=== PATIENT | male | born 1950 | race Two or more races ===

== ENCOUNTER 2018-11-09 15:10 | Inpatient (IN) | payer MEDICARE, BC ==
[~2018-11-09] VITALS: Ht 177.8 cm; Wt 77.1 kg
[2018-11-09] MEDS ORDERED: cefTRIAXone 1 GM in NS 55 ML IV STA (15:14)
[2018-11-09] MEDS ORDERED: Ipratropium 0.02% Inh Soln 2.5ml UD HHN ONE (15:15)
[2018-11-09] MEDS ORDERED: Albuterol ud Inhalation HHN ONE (15:15)
--- NOTE | 2018-11-09 15:19 | Emergency Room Report ---
History of Present Illness General Chief Complaint: Dyspnea/Respdistress Source: Patient, Family Member, EMS Present Illness HPI Patient presents with one week of cough and dyspnea. He's also had fevers and chills. He's had productive phlegm. He has muscle aches. He says he's been taking Tylenol twice a day. He does not use breathing treatments. Denies any chest pain. In the past he has used albuterol inhalers but denies wheezing. He has taken 1 dose of azithromycin. He was sent from his doctor's office. EMS stated he was hypoxic in the field. This improved with oxygen administration. H/O multiple myeloma in remission. State that last saw oncologist 2 months ago. He denies underlying anemia. Status post bone marrow replacement. He is followed at [facility]. History of diabetes. History of gout. No joint pain. No palpitations, nausea, vomiting, diarrhea, dysuria, abdominal pain, depression , visual changes, headache. Allergies: Coded Allergies: No Known Allergies (Unverified , 11/09/18) Patient History Past Medical History: see triage record Social History: Reports: alcohol use - Prior; Denies: smoking, drug use Social History Narrative Reviewed Nursing Documentation: PMH: Agreed; PSxH: Agreed Nursing Documentation-PMH Past Medical History: No History, Except For Hx COPD: No - DYSPNEA Hx Diabetes: Yes - DM2 Review of Systems All Other Systems: negative except mentioned in HPI Physical Exam Vital Signs Date Time Temp Pulse Resp B/P (MAP) Pulse Ox O2 Delivery O2 Flow Rate FiO2 11/09/18 15:06 101.5 100 18 126/66 100 Non-Rebreather 10.0 Sp02 EP Interpretation: reviewed, normal General Appearance: alert, GCS 15, mild distress Head: normocephalic, atraumatic Eyes: bilateral eye normal inspection, bilateral eye PERRL, bilateral eye EOMI ENT: moist mucus membranes Neck: supple Respiratory: respiratory distress - Mild, rales - Right upper, wheezing, expiration Cardiovascular #1: tachycardia Cardiovascular #2: 2+ radial (R) Gastrointestinal: normal inspection, normal bowel sounds, non tender, no mass, non-distended Musculoskeletal: back normal, normal range of motion, no calf tenderness Neurologic: alert, oriented x3, grossly normal Psychiatric: mood/affect normal Skin: normal inspection, warm/dry, other - Sallow Medical Decision Making Diagnostic Impression: Primary Impression: Pneumonia Qualified Codes: J18.1 - Lobar pneumonia, unspecified organism Additional Impressions: Hypoxia Pancytopenia Renal failure Qualified Codes: N17.9 - Acute kidney failure, unspecified History of multiple myeloma ER Course Patient presents with respiratory distress, hypoxia and fever with productive cough. Differential includes pneumonia, bronchitis, bronchospasm amongst others. There is no physical evidence of pulmonary embolus and with the fever infectious etiology is suspected. Evaluation with EKG, chest x-ray and labs including blood cultures and lactate. Patient be treated with albuterol and Atrovent. In addition he will receive fluid resuscitation and Tylenol. Most likely antibiotics will be indicated. The patient is placed on a phototypesetting equipment monitor. EKG without injury. Chest x-ray with right upper lobe infiltrate. CBC with low white count, thrombocytopenia and anemia. There is renal failure. BNP is elevated. Broad-spectrum antibiotics are begun. Because of the low white count reverse isolation is requested. In addition it is suspected that the pulmonary infiltrate may not represent the true extent of disease. It is also a consideration that he has recurrence of the multiple myeloma. Alternatively he can have failure of the bone marrow transplant. Blood is sent for type and Rh in anticipation of possible need for platelet or blood transfusion. Findings were discussed with family. The family do not want the patient told of the findings however I discussed the blood findings. Patient is remarkably improved after treatment. However due to the bone marrow failure and evidence of pneumonia the patient is admitted to telemetry. Patient admitted to Dr. Marinelli. Laboratory Tests Test 11/09/18 15:30 11/09/18 15:58 White Blood Count 2.2 K/UL (4.8-10.8) L Red Blood Count 2.62 M/UL (4.70-6.10) L Hemoglobin 8.7 G/DL (14.2-18.0) L Hematocrit 26.1 % (42.0-52.0) L Mean Corpuscular Volume 100 FL (80-99) H Mean Corpuscular Hemoglobin 33.3 PG (27.0-31.0) H Mean Corpuscular Hemoglobin Concent 33.4 G/DL (32.0-36.0) Red Cell Distribution Width 17.2 % (11.6-14.8) H Platelet Count 50 K/UL (150-450) L Mean Platelet Volume 8.9 FL (6.5-10.1) Neutrophils (%) (Auto) % (45.0-75.0) Lymphocytes (%) (Auto) % (20.0-45.0) Monocytes (%) (Auto) % (1.0-10.0) Eosinophils (%) (Auto) % (0.0-3.0) Basophils (%) (Auto) % (0.0-2.0) Differential Total Cells Counted 100 Neutrophils % (Manual) 48 % (45-75) Lymphocytes % (Manual) 35 % (20-45) Monocytes % (Manual) 7 % (1-10) Eosinophils % (Manual) 0 % (0-3) Basophils % (Manual) 0 % (0-2) Band Neutrophils 10 % (0-8) H Platelet Estimate Decreased L Platelet Morphology Normal Hypochromasia 1+ Anisocytosis 1+ Prothrombin Time 10.6 SEC (9.30-11.50) Prothrombin Time INR 1.0 (0.9-1.1) PTT 30 SEC (23-33) Sodium Level 137 MMOL/L (136-145) Potassium Level 4.6 MMOL/L (3.5-5.1) Chloride Level 100 MMOL/L (98-107) Carbon Dioxide Level 32 MMOL/L (21-32) Anion Gap 5 mmol/L (5-15) Blood Urea Nitrogen 45 mg/dL (7-18) H Creatinine 2.2 MG/DL (0.55-1.30) H Estimate Glomerular Filtration Rate 30.0 mL/min (>60) Glucose Level 173 MG/DL (74-106) H Lactic Acid Level 0.90 mmol/L (0.4-2.0) Calcium Level 8.6 MG/DL (8.5-10.1) Total Bilirubin 0.5 MG/DL (0.2-1.0) Aspartate Amino Transferase (AST) 29 U/L (15-37) Alanine Aminotransferase (ALT) 48 U/L (12-78) Alkaline Phosphatase 73 U/L (46-116) Total Creatine Kinase 501 U/L (26-308) H Troponin I 0.045 ng/mL (0.000-0.056) Pro-B-Type Natriuretic Peptide 1422 pg/mL (0-125) H Total Protein 7.2 G/DL (6.4-8.2) Albumin 2.9 G/DL (3.4-5.0) L Globulin 4.3 g/dL Albumin/Globulin Ratio 0.7 (1.0-2.7) L Urine Color Yellow Urine Appearance Clear Urine pH 5 (4.5-8.0) Urine Specific [place] 1.015 (1.005-1.035) Urine Protein 3+ (NEGATIVE) H Urine Glucose (UA) Negative (NEGATIVE) Urine Ketones Negative (NEGATIVE) Urine Blood 1+ (NEGATIVE) H Urine Nitrite Negative (NEGATIVE) Urine Bilirubin Negative (NEGATIVE) Urine Urobilinogen 1 MG/DL (0.0-1.0) H Urine Leukocyte Esterase Negative (NEGATIVE) Urine RBC 0-2 /HPF (0 - 0) H Urine WBC 0-2 /HPF (0 - 0) Urine Squamous Epithelial Cells None /LPF (NONE/OCC) Urine Bacteria Few /HPF (NONE) Microbiology Date/Time Source Procedure Growth Status 11/09/18 16:18 Nasal Nares Influenza Types A,B Antigen (REENA) - Final Complete EKG Diagnostic Results Rate: normal Rhythm: NSR ST Segments: no acute changes Rhythm Strip Diag. Results EP Interpretation: yes Rhythm: NSR, no PVC's, no ectopy Chest X-Ray Diagnostic Results Chest X-Ray Diagnostic Results : Chest X-Ray Ordered: Yes # of Views/Limited/Complete: 1 View Indication: Shortness of Breath EP Interpretation: Yes Interpretation: no effusion, no pneumothorax, other - Right upper lobe infiltrate Impression: Other Electronically Signed by: Electronically signed by Miguel Fisher MD Last Vital Signs Date Time Temp Pulse Resp B/P (MAP) Pulse Ox O2 Delivery O2 Flow Rate FiO2 11/10/18 01:13 99.5 11/10/18 00:00 77 11/10/18 00:00 19 107/63 (78) 97 11/09/18 22:45 Nasal Cannula 2.0 11/09/18 15:36 98 Status: improved Disposition: ADMITTED INPATIENT Condition: Serious Miguel Fisher MD Nov 09, 2018 15:19
[2018-11-09] MEDS ORDERED: NORCO 10-325 T1 EACH ORAL (15:21)
[2018-11-09] MEDS ORDERED: LANTUS SOL100 UNIT/1 SUBQ (15:21)
[2018-11-09] MEDS ORDERED: DEXILANT60 MG ORAL (15:21)
[2018-11-09] MEDS ORDERED: ULORIC40 MG ORAL (15:21)
[2018-11-09] MEDS ORDERED: ATROVENT HFA12.9 GM IH (15:21)
[2018-11-09] MEDS ORDERED: FUROSEMIDE40 MG ORAL (15:21)
[2018-11-09] MEDS ORDERED: HYDROCHLOROTH12.5 M2 ORAL (15:21)
[2018-11-09] MEDS ORDERED: ALBUTEROL2.5 MG/3 M INH (15:21)
[2018-11-09] MEDS ORDERED: NORMODYNE200 MG ORAL (15:21)
[2018-11-09] MEDS ORDERED: REPATHA SU140 MG/1 M SQ ×2 (15:21)
[2018-11-09] MEDS ORDERED: LEVOTHYROXINE75 MCG ORAL (15:21)
[2018-11-09] MEDS ORDERED: TAMSULOSIN HCL0.4 MG ORAL (15:21)
[2018-11-09] MEDS ORDERED: ADALAT20 MG ORAL (15:21)
[2018-11-09] MEDS ORDERED: COLCRYS0.6 M1 PO (15:21)
[2018-11-09] MEDS ORDERED: VASCEPA1 GM PO ×2 (15:21)
[2018-11-09] MEDS ORDERED: LIVALO4 MG PO (15:21)
[2018-11-09] MEDS ORDERED: CREON DR 12,001 EACH PO (15:21)
[2018-11-09] MEDS ORDERED: TRULICITY0.75 MG/0. SQ (15:21)
[2018-11-09] MEDS ORDERED: ALLOPURINOL300 M1 ORAL (15:21)
--- NOTE | 2018-11-09 15:30 | NUR ---
ED Nurse Note: Pt IDALMIS from MD appointment due to complaints of fever and coughing x 1 week. Pt was given zpack last week but it has not gotten better. Pt was sating at 84% on RA. Placed on NC. Pt denies pain. A + O x4. Skin clammy to touch. Ambulatory. [place] speaking.
--- NOTE | 2018-11-09 15:34 | NUR ---
ED Nurse Note: RT at the bedside.
--- NOTE | 2018-11-09 15:35 | NUR ---
ED Nurse Note: Blood sent to lab.
[2018-11-09 15:36] VITALS: BP 133/60
[2018-11-09 16:11] LABS: APPEARANCE,URINE CLEAR; BILIRUBIN, URINE NEGATIVE (NEGATIVE); GLUCOSE, URINE (UA) NEGATIVE (NEGATIVE); KETONES,URINE NEGATIVE (NEGATIVE); LEUKOCYTE ESTERASE ,URINE NEGATIVE (NEGATIVE); NITRITE,URINE NEGATIVE (NEGATIVE); PH,URINE 5 (4.5-8.0); PROTEIN,URINE 3+ (NEGATIVE); UROBILINOGEN,URINE 1 MG/DL (0.0-1.0)
[2018-11-09 16:13] LABS: COLOR,URINE YELLOW
[2018-11-09 16:16] LABS: ANION GAP 5 mmol/L (5-15); BLOOD UREA NITROGEN 45 mg/dL (7-18); CALCIUM 8.6 MG/DL (8.5-10.1); CARBON DIOXIDE 32 MMOL/L (21-32); CHLORIDE 100 MMOL/L (98-107); CREATININE 2.2 MG/DL (0.55-1.30); POTASSIUM 4.6 MMOL/L (3.5-5.1); SODIUM 137 MMOL/L (136-145)
[2018-11-09 16:20] LABS: HEMATOCRIT 26.1 % (42.0-52.0); HEMOGLOBIN 8.7 G/DL (14.2-18.0); MEAN CORPUSCULAR VOLUME 100 FL (80-99); PLATELET COUNT 50 K/UL (150-450); RED BLOOD COUNT 2.62 M/UL (4.70-6.10); RED CELL DISTRIBUTION WIDTH 17.2 % (11.6-14.8); WHITE BLOOD COUNT 2.2 K/UL (4.8-10.8)
[2018-11-09 16:24] LABS: ALANINE AMINOTRANSFERASE 48 U/L (12-78); ALBUMIN 2.9 G/DL (3.4-5.0); ALBUMIN/GLOBULIN RATIO 0.7 (1.0-2.7); ALKALINE PHOSPHATASE 73 U/L (46-116); ASPARTATE AMINO TRANSFERASE 29 U/L (15-37); BILIRUBIN,TOTAL 0.5 MG/DL (0.2-1.0); CREATINE KINASE 501 U/L (26-308)
--- NOTE | 2018-11-09 16:25 | NUR ---
ED Nurse Note: Notified Xray of order.
--- NOTE | 2018-11-09 16:30 | NUR ---
ED Nurse Note: Xray at the bedside.
[2018-11-09] MEDS ORDERED: Vancomycin 1 GM in NS 275 ML IVPB ONE (16:45)
--- NOTE | 2018-11-09 16:56 | Diagnostic Imaging Report ---
Indication: Shortness of breath Technique: One view of the chest Comparison: none Findings: Body habitus limits evaluation. There is suggestion of increased opacity in the right mid and upper lung periphery. The left lung is probably clear. The pleural spaces are clear Impression: Apparent right mid and upper lung opacity, could be an artifact of overlapping soft tissues but appearance concerning for infiltrate. Correlate with clinical finding Cardiomegaly
[2018-11-09] MEDS ORDERED: Mylanta II UD 30ml ORAL ONE (17:15)
--- NOTE | 2018-11-09 17:47 | NUR ---
REPORT GIVEN TO RN PATIENT IS TO BE TRANSFERD TO ROOM 204-1. VIA [facility]
--- NOTE | 2018-11-09 18:10 | NUR ---
NURSE NOTES: I received the patient from the ER. Patient's belongings reviewed and the all belongings present. Patient oriented to the room and the use of the call light. Patient's IV intact and patent. Bed in the lowest position and call light within reach. Patient's at the bedside.
[2018-11-09 18:18] VITALS: BP 139/76
[2018-11-09] MEDS ORDERED: REVLIMID5 MG PO (18:24)
[2018-11-09] MEDS ORDERED: Albuterol/Ipratropium 3ml neb HHN PRN (19:15)
--- NOTE | 2018-11-09 19:31 | NUR ---
HAND-OFF: Report given to STEPHANIE Walters.
--- NOTE | 2018-11-09 19:45 | NUR ---
NURSE NOTES: Received report from STEPHANIE Dunbar. Patient awake, alert and verbally responsive. No SOB, no acute distress on 2 L via NC. at bedside. Per STEPHANIE Dunbar, pt just came to the unit from ED, admission orders already put by Dr. Tong. IV site on R AC #22, patent and intact. Bed at lowest position, call light within reach. Will continue plan of care.
[2018-11-09 20:00] VITALS: BP 98/48
[2018-11-09] MEDS: Azithromycin 500 MG in D5W 275 ML IV SCH (20:57)
[2018-11-09] MEDS: Tamsulosin 0.4mg cap ORAL SCH (21:01)
[2018-11-09] MEDS: NovoLOG Insulin Flexpen SUBQ SCH (21:04)
[2018-11-09] MEDS: Levemir Flexpen SUBQ SCH (21:04)
[2018-11-09] MEDS: Labetalol 200mg tab ORAL SCH (22:00)
--- NOTE | 2018-11-09 22:15 | Consultation ---
DATE OF CONSULTATION: 11/09/2018 CONSULTING PHYSICIAN: Winston Tong M.D. REFERRING PHYSICIAN: Xu Marinelli M.D. REASON FOR CONSULTATION: 1. Acute kidney injury. 2. Chronic kidney disease. HISTORY OF PRESENT ILLNESS: The patient is a pleasant 67-year-old gentleman who was admitted overnight for further evaluation and care of cough and dyspnea over one week. Both he and his said over the past several days he has been having fevers and chills. He has been taking Tylenol twice a day. He has not been using his breathing treatments. The patient has known multiple myeloma in the past, had been on chemotherapy and had a bone marrow transplant two years ago. He remains on Revlimid in the interim. Emergency room x-ray was significant for pneumonia. PAST MEDICAL HISTORY: 1. Multiple myeloma. 2. Hypertension. 3. Diabetes mellitus. 4. Obesity. 5. Hyperlipidemia. 6. Hypothyroidism. 7. Hypertriglyceridemia. PAST SURGICAL HISTORY: Status post bone marrow transplantation two years ago ALLERGIES: No known drug allergies. FAMILY HISTORY: Positive for diabetes, hypertension, and hyperlipidemia. REVIEW OF SYSTEMS: NEUROLOGIC: The patient denies headache, change in vision, syncope, or presyncopal episodes. CARDIOVASCULAR: No current chest pain, palpitations, or angina. PULMONARY: The patient was short of breath with productive cough, and mild shortness of breath. GASTROINTESTINAL/GENITOURINARY: No change in urinary or bowels habits. No nausea, vomiting, or diarrhea. ENDOCRINOLOGY: No night sweats, fevers, or chills. LABORATORY DATA: Labs dated 11/09/2018, white cell count 2.2, hemoglobin 8.7, and platelet count of 50. Sodium 137, potassium 4.6, BUN 45, and creatinine 2.2. Calcium 8.6. Albumin 2.9. PHYSICAL EXAMINATION: VITAL SIGNS: Blood pressure 139/76, 96% oxygen saturation on room air, pulse 86, and temperature 98.6. GENERAL: The patient is awake and alert, not in distress. HEENT: Extraocular muscles are intact. No lymphadenopathy. Oropharyngeal mucosa is clear and dry. CARDIOVASCULAR: S1 and S2. No rubs or gallops. PULMONARY: Mild upper rhonchi with basilar rales. ABDOMEN: Soft, nontender. Obese in nature. EXTREMITIES: No edema noted. ASSESSMENT AND PLAN: 1. Acute kidney injury versus chronic kidney disease. 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 However, he does not know his baseline creatinine. At this time, Lasix will be discontinued. The patient will be gently hydrated and creatinine will be checked in the morning. As long as renal function improving, conservative management and no further renal investigations. 2. History of multiply myeloma, status post bone marrow transplantation two years ago, has been on Revlimid in the interim. 3. Community-acquired pneumonia. The patient will be placed on Rocephin and azithromycin. 4. Hypertension. Continue home regimen and adjustment medications as deemed appropriate. 5. Diabetes mellitus. The patient is on low carbohydrate diet with insulin sliding scale and Accu-Chek. 6. DVT prophylaxis with SCDs. Winston Tong MD DR: ELSA JOB#: [id number] CC:
--- NOTE | 2018-11-09 23:00 | History and Physical Report ---
DATE OF ADMISSION: 11/09/2018 HISTORY OF PRESENT ILLNESS: This is a 67-year-old male with a history of multiple myeloma who came to the hospital with fever, chills, and muscle aches. He was admitted to the hospital with diagnosis of dyspnea. The patient has a longstanding history of chronic cervicalgia, headaches, alcohol abuse, diabetes mellitus, glaucoma, gout, multiple myeloma, hypertension, status post chemotherapy. CURRENT MEDICATIONS: Include Micardis HCT 80/12.5, Imitrex p.r.n., Janumet daily, Suboxone, cyclobenzaprine, labetalol 200 b.i.d., Neurontin 100 mg 3 tablets b.i.d., colchicine 0.6 mg p.o. b.i.d., multivitamin 1 daily, Epogen, also takes Flomax 0.4 mg daily, Eliquis 5 mg b.i.d. as well as eye drops consisting of brinzolamide. The patient also takes Revlimid 5 mg daily. He also takes insulin Lantus 45 units in the morning and 25 units in the evening. He also takes Livalo 4 mg daily as well as Dexilant 1 capsule daily, Trulicity unclear dose 1.5 mg once a week, Vascepa 2 capsules daily, he takes iron supplement, and acyclovir as well as brimonidine eyedrops. ALLERGIES: None. PAST SURGICAL HISTORY: None reported. PHYSICAL EXAMINATION: GENERAL: Reveals a 67-year-old male. HEENT: Unremarkable. LUNGS: Clear breath sounds bilaterally. HEART: Normal heart sounds. ABDOMEN: Soft. EXTREMITIES: There is no edema. NEUROLOGIC: Nonfocal. VITAL SIGNS: Blood pressure is 120/60, heart rate is 100, respirations 18, O2 saturation 98% on non-rebreather mask, temperature 101.5. IMAGING STUDIES: Show x-ray chest with dense right and midlung opacity. IMPRESSION: 1. Pneumonia. 2. Multiple myeloma. 3. Chronic pain. 4. Hyperlipidemia. 5. Diabetes mellitus. 6. Hypertension. 7. History of alcohol abuse. 8. Gout. DISCUSSION: Admit to the hospital. We will start broad-spectrum antibiotics. Continue home medications to the best of my understanding. The patient will need ID consultation. Given his immunocompromised status, we will consult Nephrology, Cardiology as well as ID. Consider pain management evaluation. 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 Xu Marinelli M.D. DR: DONALD JOB#: [id number] CC:
[2018-11-10] VITALS (7 sets, daily range): BP systolic 97–137; BP diastolic 50–99
--- NOTE | 2018-11-10 02:26 | NUR ---
NURSE NOTES: Patient asleep now, breathing even and unlabored, no s/sx of pain nor any discomfort at this time. Pt noted with fever, tylenol 650 mg administered as ordered, cooling measures initiated. Rechecked temp. Will continue to monitor.
--- NOTE | 2018-11-10 05:45 | Consultation ---
DATE OF CONSULTATION: 11/09/2018 CARDIOLOGY CONSULTATION CONSULTING PHYSICIAN: Miguel Garcia M.D. REQUESTING PHYSICIAN: Xu Marinelli M.D. REASON FOR CONSULTATION: Shortness of breath in the setting of elevated natriuretic peptide assay. HISTORY OF PRESENT ILLNESS: This 67-year-old male was admitted to the hospital with complaints of cough and congestion, shortness of breath of one week duration. He could describes having fevers, chills, and "cold." He has been taking Tylenol. He has not been using his breathing treatments and has worsened in his symptoms prompting him to come to the hospital. He denies chest pain or leg swelling. He was seen in the emergency room where an x-ray of the chest was notable for infiltrate and natriuretic peptide was elevated above 1200. PAST MEDICAL HISTORY: Multiple myeloma, type 2 diabetes mellitus, hypertension, hyperlipidemia, hypothyroidism, hypertriglyceridemia, and history of bone marrow transplant. ALLERGIES: None. FAMILY HISTORY: Notable for diabetes and hypertension. SOCIAL HISTORY: Negative for smoking, alcohol, or substance abuse. MEDICATIONS: Prior to admission, reviewed and reconciled. REVIEW OF SYSTEMS: A 10-point review of systems performed and all positive symptoms noted above. The patient is on apixaban. It is unclear the indication and he is unaware. PHYSICAL EXAMINATION: VITAL SIGNS: Temperature 101.5, blood pressure 126/66, heart rate 100, and respiratory rate 18. GENERAL: An ill-appearing, some accessory muscle use. LUNGS: Coarse breath sounds with rhonchi and expiratory wheezes. CARDIAC: Regular rhythm. Rapid rate. Normal S1, S2 with a fourth heart sound. ABDOMEN: Soft. EXTREMITIES: No edema. DIAGNOSTIC AND LABORATORY DATA: Chest x-ray with right upper lobe infiltrate. Pro-natriuretic peptide 1200. Troponin negative. White count 3.2 and hemoglobin 8.7. IMPRESSION: 1. Pneumonia in the setting of immunocompromised state. 2. Elevated natriuretic peptide assay 3. Chronic diastolic congestive heart failure due to high output state. 4. Pancytopenia due to multiple myeloma. 5. Chronic kidney disease. 6. Acute renal failure. 7. Hypoxia PLAN: 1. Antimicrobials. 2. Respiratory hygiene. 3. Bronchodilators. 4. Monitor blood counts. 5. DVT prophylaxis. 6. Off all diuretics at this time. 7. Hold antiHTN meds for low range BP. Miguel Garcia M.D. DR: MILDRED JOB#: [id number] CC: PAT
[2018-11-10] MEDS: Levothyroxine 25mcg tab ORAL SCH (05:57)
[2018-11-10] MEDS: Labetalol 200mg tab ORAL SCH ×3 (06:00→22:05)
[2018-11-10] MEDS: NovoLOG Insulin Flexpen SUBQ SCH ×4 (06:02→20:57)
--- NOTE | 2018-11-10 06:32 | NUR ---
CASE MANAGEMENT:REVIEW 67 YR OLD MALE BIBA FROM DR KELLER'S OFFICE CC: RESPIRATORY DISTRESS W/SAT 845% ON RA PMH: WAS GIVEN Z-PACK LAST WEEK SI: PNEUMONIA. 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
--- NOTE | 2018-11-10 07:00 | NUR ---
NURSE NOTES: I received the patient awake and resting in bed. Patient alert and oriented x4. Bed in the lowest position and call light within reach. Patient does not display any signs of distress. IV intact and patent. I will continue to monitor the patient and implement care.
[2018-11-10 07:11] LABS: HEMATOCRIT 26.9 % (42.0-52.0); HEMOGLOBIN 8.6 G/DL (14.2-18.0); MEAN CORPUSCULAR VOLUME 102 FL (80-99); PLATELET COUNT 52 K/UL (150-450); RED BLOOD COUNT 2.65 M/UL (4.70-6.10); RED CELL DISTRIBUTION WIDTH 18.2 % (11.6-14.8)
[2018-11-10 07:15] LABS: WHITE BLOOD COUNT 1.6 K/UL (4.8-10.8)
--- NOTE | 2018-11-10 07:21 | NUR ---
HAND-OFF: Report given to STEPHANIE Dunbar. Endorsed that Dr. Tong is aware that pt's temp is going up and down, highest 101.7, latest temp is 99.5. Per MD, Dr. Marinelli will be here today to see pt. Blood cx done at ED already. Endorsed plan of care.
[2018-11-10 07:22] LABS: ANION GAP 5 mmol/L (5-15); BLOOD UREA NITROGEN 37 mg/dL (7-18); CARBON DIOXIDE 27 MMOL/L (21-32); CHLORIDE 103 MMOL/L (98-107); CREATININE 1.8 MG/DL (0.55-1.30); POTASSIUM 4.3 MMOL/L (3.5-5.1); SODIUM 135 MMOL/L (136-145)
[2018-11-10] MEDS ORDERED: hydroCHLOROthiazide 12.5mg TAB ORAL SCH (09:00)
[2018-11-10] MEDS: PARoxetine 20mg tab ORAL SCH (09:07)
--- NOTE | 2018-11-10 10:39 | Nephrology Progress Note ---
Assessment/Plan Assessment/Plan A/P 1) XAVI on CKD 3B- Cr improved 2.2---> 1.8 - due to sepsis/hypotension and volume depletion - DC HCT. Change IVFs 2) Hypotension- DC HCT 3) Hyponatremia- DC HCT and change IVFs 4) Sepsis leukopenia- per ID to adjust Abx 5) MM- s/p bone marrow tx 2 years ago Subjective Date patient seen: Nov 10, 2018 Time patient seen: 10:35 ROS Limited/Unobtainable: No Constitutional: Reports: malaise, weakness Respiratory: Reports: shortness of breath, sputum Allergies: Coded Allergies: No Known Allergies (Unverified , 11/09/18) All Systems: reviewed and negative except above Subjective Patient still having some rigors and chills Objective Last 24 Hour Vital Signs Date Time Temp Pulse Resp B/P (MAP) Pulse Ox O2 Delivery O2 Flow Rate FiO2 11/10/18 08:00 100.2 88 20 97/50 (66) 94 11/10/18 06:32 99.5 11/10/18 06:00 80 103/61 11/10/18 04:00 72 11/10/18 04:00 99.3 80 19 103/61 (75) 96 11/10/18 00:00 77 11/10/18 00:00 101.0 93 19 107/63 (78) 97 11/09/18 22:45 Nasal Cannula 2.0 11/09/18 22:00 75 98/48 11/09/18 21:00 Nasal Cannula 2.0 11/09/18 20:00 99.1 91 19 98/48 (65) 93 11/09/18 20:00 81 11/09/18 18:18 98.6 86 20 139/76 (97) 96 11/09/18 17:50 101.0 106 16 118/70 98 Nasal Cannula 2.0 11/09/18 15:36 101.4 86 19 133/60 98 Nasal Cannula 3.0 11/09/18 15:36 86 15 Nasal Cannula 2.0 98 11/09/18 15:31 88 16 100 Nasal Cannula 2.0 28 11/09/18 15:24 80 16 99 Nasal Cannula 2.0 28 11/09/18 15:24 80 16 Nasal Cannula 2.0 28 11/09/18 15:06 101.5 100 18 126/66 100 Non-Rebreather 10.0 Intake and Output 11/09/18 11/10/18 19:00 07:00 Intake Total 1200 ml 1383 ml Balance 1200 ml 1383 ml Intake Oral 0 ml 360 ml IV Total 1200 ml 1023 ml # Voids 4 Laboratory Tests 11/09/18 15:30: White Blood Count 2.2L, Red Blood Count 2.62L, Hemoglobin 8.7L, Hematocrit 26.1L , Mean Corpuscular Volume 100H, Mean Corpuscular Hemoglobin 33.3H, Mean Corpuscular Hemoglobin Concent 33.4, Red Cell Distribution Width 17.2H, Platelet Count 50L, Mean Platelet Volume 8.9, Neutrophils (%) (Auto) , Lymphocytes (%) (Auto) , Monocytes (%) (Auto) , Eosinophils (%) (Auto) , Basophils (%) (Auto) , Differential Total Cells Counted 100, Neutrophils % ( Manual) 48, Lymphocytes % (Manual) 35, Monocytes % (Manual) 7, Eosinophils % ( Manual) 0, Basophils % (Manual) 0, Band Neutrophils 10H, Platelet Estimate DecreasedL, Platelet Morphology Normal, Hypochromasia 1+, Anisocytosis 1+, Prothrombin Time 10.6, Prothromb Time International Ratio 1.0, Activated Partial Thromboplast Time 30, Sodium Level 137, Potassium Level 4.6, Chloride Level 100, Carbon Dioxide Level 32, Anion Gap 5, Blood Urea Nitrogen 45H, Creatinine 2.2H, Estimat Glomerular Filtration Rate 30.0, Glucose Level 173H, Lactic Acid Level 0.90, Calcium Level 8.6, Total Bilirubin 0.5, Aspartate Amino Transf (AST/SGOT) 29, Alanine Aminotransferase (ALT/SGPT) 48, Alkaline Phosphatase 73, Total Creatine Kinase 501H, Troponin I 0.045, Pro-B-Type Natriuretic Peptide 1422H, Total Protein 7.2, Albumin 2.9L, Globulin 4.3, Albumin/Globulin Ratio 0.7L 11/09/18 15:58: Urine Color Yellow, Urine Appearance Clear, Urine pH 5, Urine Specific [place] 1.015, Urine Protein 3+H, Urine Glucose (UA) Negative, Urine Ketones Negative, Urine Blood 1+H, Urine Nitrite Negative, Urine Bilirubin Negative, Urine Urobilinogen 1H, Urine Leukocyte Esterase Negative, Urine RBC 0-2H, Urine WBC 0- 2, Urine Squamous Epithelial Cells None, Urine Bacteria Few 11/10/18 05:38: White Blood Count 1.6*L, Red Blood Count 2.65L, Hemoglobin 8.6L, Hematocrit 26.9L, Mean Corpuscular Volume 102H, Mean Corpuscular Hemoglobin 32.6H, Mean Corpuscular Hemoglobin Concent 32.1, Red Cell Distribution Width 18.2H, Platelet Count 52L, Mean Platelet Volume 8.2, Neutrophils (%) (Auto) , Lymphocytes (%) (Auto) , Monocytes (%) (Auto) , Eosinophils (%) (Auto) , Basophils (%) (Auto) , Differential Total Cells Counted 100, Neutrophils % ( Manual) 44L, Lymphocytes % (Manual) 53H, Monocytes % (Manual) 2, Eosinophils % ( Manual) 1, Basophils % (Manual) 0, Band Neutrophils 0, Platelet Estimate DecreasedL, Platelet Morphology Normal, Anisocytosis 1+, Sodium Level 135L, Potassium Level 4.3, Chloride Level 103, Carbon Dioxide Level 27, Anion Gap 5, Blood Urea Nitrogen 37H, Creatinine 1.8H, Estimat Glomerular Filtration Rate 37.8, Glucose Level 119H, Calcium Level 8.0L, Macrocytosis 1+ Height (Feet): 5 Height (Inches): 10.00 Weight (Pounds): 170 General Appearance: no apparent distress, alert EENT: normal ENT inspection Neck: normal alignment, supple Cardiovascular: normal rate, regular rhythm Respiratory/Chest: crackles/rales, rhonchi - bilaterally Abdomen: non tender, soft Edema: no edema noted Arm (L), no edema noted Arm (R), no edema noted Leg (L), no edema noted Leg (R), no edema noted Pedal (L), no edema noted Pedal (R), no edema noted Generalized Winston Tong MD Nov 10, 2018 10:39
--- NOTE | 2018-11-10 13:02 | NUR ---
NURSE NOTES: Patient experiencing a fever. Dr. Marinelli notitifed and he said to keep monitoring the fever. Patient given Tylenol and ice packs applied. Patient is sitting at the side of his bed and is not experiencing any chills or diaphoresis. I will continue to monitor the patient
--- NOTE | 2018-11-10 13:27 | Cardiology Report ---
APPROVED REPORT EKG Measurement Heart [id number] Normal sinus rhythm Normal ECG
[2018-11-10] MEDS ORDERED: cefTRIAXone 1 GM in D5W 55 ML IVPB SCH (16:00)
--- NOTE | 2018-11-10 17:16 | Consultation ---
History of Present Illness General Date patient seen: Nov 10, 2018 Chief Complaint: Present Illness Allergies: Coded Allergies: No Known Allergies (Unverified , 11/09/18) Medication History Scheduled Albuterol Sulfate* (Albuterol Sulfate Hhn*), 3 ML INH THREE TIMES A DAY, ( Reported) Allopurinol* (Allopurinol*), 300 MG ORAL DAILY, (Reported) Dexlansoprazole (Dexilant), 60 MG ORAL DAILY, (Reported) Evolocumab (Repatha Sureclick), 140 MG SQ EVERY OTHER WEEK, (Reported) Febuxostat (Uloric), 40 MG ORAL DAILY, (Reported) Furosemide* (Lasix*), 40 MG ORAL DAILY, (Reported) Hydrochlorothiazide* (Hydrochlorothiazide*), 12.5 MG ORAL DAILY, (Reported) Icosapent Ethyl (Vascepa), 1 GM PO DAILY, (Reported) Insulin Glargine (Lantus), 0 SUBQ BEDTIME, (Reported) Labetalol HCl (Labetalol HCl), 200 MG ORAL THREE TIMES A DAY, (Reported) Lenalidomide (Revlimid), 5 MG PO DAILY, (Reported) Levothyroxine Sodium* (Levothyroxine Sodium*), 25 MCG ORAL DAILY, (Reported) Nifedipine (Nifedipine*), 60 MG ORAL DAILY, (Reported) Pitavastatin Calcium (Livalo), 4 MG PO DAILY, (Reported) Tamsulosin Hcl (Tamsulosin Hcl*), 0.4 MG ORAL BEDTIME, (Reported) Scheduled PRN Hydrocodone Bit/Acetaminophen 10-325* ([employer] 10-325*), 1 TAB ORAL Q8HR PRN for For Pain, (Reported) Miscellaneous Medications Colchicine (Colcrys), 0.6 MG PO, (Reported) Dulaglutide (Trulicity), 0.75 MG SQ, (Reported) Evolocumab (Repatha Sureclick), 140 MG SQ, (Reported) Icosapent Ethyl (Vascepa), 1 GM PO, (Reported) Ipratropium [place] (Atrovent Hfa), 17 GM IH, (Reported) Lipase/Protease/Amylase (Creon Dr 12,000 Units Capsule), 1 EACH PO, (Reported) Patient History Healthcare decision maker Resuscitation status Full Code Advanced Directive on File No Physical Exam Last 24 Hour Vital Signs Date Time Temp Pulse Resp B/P (MAP) Pulse Ox O2 Delivery O2 Flow Rate FiO2 11/10/18 16:16 67 11/10/18 16:00 97.2 82 20 112/51 (71) 95 11/10/18 14:00 82 112/51 11/10/18 12:00 97.9 122 18 125/72 (89) 99 11/10/18 11:50 102.7 11/10/18 11:46 77 11/10/18 11:02 98.4 75 108/56 (73) 11/10/18 09:00 Nasal Cannula 2.0 11/10/18 08:00 100.2 88 20 97/50 (66) 94 11/10/18 07:17 97 11/10/18 06:00 80 103/61 11/10/18 04:00 72 11/10/18 04:00 99.3 80 19 103/61 (75) 96 11/10/18 00:00 77 11/10/18 00:00 101.0 93 19 107/63 (78) 97 11/09/18 22:45 Nasal Cannula 2.0 11/09/18 22:00 75 98/48 11/09/18 21:00 Nasal Cannula 2.0 11/09/18 20:00 99.1 91 19 98/48 (65) 93 11/09/18 20:00 81 11/09/18 18:18 98.6 86 20 139/76 (97) 96 11/09/18 17:50 101.0 106 16 118/70 98 Nasal Cannula 2.0 Intake and Output 11/09/18 11/10/18 18:59 06:59 Intake Total 1200 ml 1308 ml Balance 1200 ml 1308 ml Intake Oral 0 ml 360 ml IV Total 1200 ml 948 ml # Voids 4 Laboratory Tests Test 11/10/18 05:38 White Blood Count 1.6 K/UL (4.8-10.8) *L Red Blood Count 2.65 M/UL (4.70-6.10) L Hemoglobin 8.6 G/DL (14.2-18.0) L Hematocrit 26.9 % (42.0-52.0) L Mean Corpuscular Volume 102 FL (80-99) H Mean Corpuscular Hemoglobin 32.6 PG (27.0-31.0) H Mean Corpuscular Hemoglobin Concent 32.1 G/DL (32.0-36.0) Red Cell Distribution Width 18.2 % (11.6-14.8) H Platelet Count 52 K/UL (150-450) L Mean Platelet Volume 8.2 FL (6.5-10.1) Neutrophils (%) (Auto) % (45.0-75.0) Lymphocytes (%) (Auto) % (20.0-45.0) Monocytes (%) (Auto) % (1.0-10.0) Eosinophils (%) (Auto) % (0.0-3.0) Basophils (%) (Auto) % (0.0-2.0) Differential Total Cells Counted 100 Neutrophils % (Manual) 44 % (45-75) L Lymphocytes % (Manual) 53 % (20-45) H Monocytes % (Manual) 2 % (1-10) Eosinophils % (Manual) 1 % (0-3) Basophils % (Manual) 0 % (0-2) Band Neutrophils 0 % (0-8) Platelet Estimate Decreased L Platelet Morphology Normal Anisocytosis 1+ Macrocytosis 1+ Sodium Level 135 MMOL/L (136-145) L Potassium Level 4.3 MMOL/L (3.5-5.1) Chloride Level 103 MMOL/L (98-107) Carbon Dioxide Level 27 MMOL/L (21-32) Anion Gap 5 mmol/L (5-15) Blood Urea Nitrogen 37 mg/dL (7-18) H Creatinine 1.8 MG/DL (0.55-1.30) H Estimat Glomerular Filtration Rate 37.8 mL/min (>60) Glucose Level 119 MG/DL (74-106) H Calcium Level 8.0 MG/DL (8.5-10.1) L Height (Feet): 5 Height (Inches): 10.00 Weight (Pounds): 170 Medications Current Medications Medications (Trade) Dose Ordered Sig/Jet Route PRN Reason Start Time Stop Time Status Last Admin Dose Admin Acetaminophen (Tylenol) 650 mg Q4H PRN ORAL Mild Pain (Pain Scale 1-3) 11/09/18 19:15 12/09/18 19:14 11/10/18 11:20 Albuterol/ Ipratropium (Albuterol/ Ipratropium) 3 ml Q4H PRN HHN Shortness of Breath 11/09/18 19:15 11/14/18 19:14 Allopurinol (Allopurinol) 300 mg DAILY ORAL 11/10/18 09:00 12/10/18 08:59 11/10/18 09:07 Azithromycin 500 mg/Dextrose 275 ml @ 275 mls/hr Q24HRS IV 11/09/18 21:00 11/15/18 21:59 11/09/18 20:57 Ceftriaxone Sodium 1 gm/ Dextrose 55 ml @ 110 mls/hr Q24H IVPB 11/10/18 16:00 11/17/18 15:59 11/10/18 15:07 Dextrose (Dextrose 50%) 25 ml Q30M PRN IV Hypoglycemia 11/09/18 19:15 12/09/18 19:14 Dextrose (Dextrose 50%) 50 ml Q30M PRN IV Hypoglycemia 11/09/18 19:15 12/09/18 19:14 Famotidine (Pepcid) 40 mg DAILY ORAL 11/10/18 09:00 12/10/18 08:59 11/10/18 09:07 Insulin Aspart (NovoLOG) BEFORE MEALS AND HS SUBQ 11/09/18 21:00 12/09/18 20:59 11/10/18 12:57 Insulin Detemir (Levemir) 23 units Q24H SUBQ 11/09/18 21:00 12/09/18 20:59 11/09/18 21:04 Labetalol HCl (Normodyne) 200 mg Q8HR ORAL 11/09/18 22:00 12/09/18 21:59 Levothyroxine Sodium (Synthroid) 25 mcg DAILY@0630 ORAL 11/10/18 06:30 12/10/18 06:29 11/10/18 05:57 Paroxetine HCl (Paxil) 40 mg DAILY ORAL 11/10/18 09:00 12/10/18 08:59 11/10/18 09:07 Tamsulosin HCl (Flomax) 0.4 mg BEDTIME ORAL 11/09/18 21:00 12/09/18 20:59 11/09/18 21:01 Assessment/Plan Assessment/Plan (1) Opioid dependency on Suboxone seen dictated Alonso Mariscal Nov 10, 2018 17:16
[2018-11-10] MEDS ORDERED: SUBOXONE 8 MG-1 EACH SL (17:20)
--- NOTE | 2018-11-10 17:40 | Infectious Diseases Prog Note ---
Assessment/Plan Assessment/Plan Full consult dictated: A) 1) sepsis, cap pna, leukopenia, fevers, sirs, ? influenza infection/viral syndrome 2) multiple myeloma, tho, anemia 3) pmh noted P) 1) rocephin, azithromycin, vancomycin 2) check cultures, labs, chest x-ray 3) check serology 4) thank you Subjective Allergies: Coded Allergies: No Known Allergies (Unverified , 11/09/18) Objective Vital Signs Last 24 Hour Vital Signs Date Time Temp Pulse Resp B/P (MAP) Pulse Ox O2 Delivery O2 Flow Rate FiO2 11/10/18 16:16 67 11/10/18 16:00 97.2 82 20 112/51 (71) 95 11/10/18 14:00 82 112/51 11/10/18 12:00 97.9 122 18 125/72 (89) 99 11/10/18 11:50 102.7 11/10/18 11:46 77 11/10/18 11:02 98.4 75 108/56 (73) 11/10/18 09:00 Nasal Cannula 2.0 11/10/18 08:00 100.2 88 20 97/50 (66) 94 11/10/18 07:17 97 11/10/18 06:00 80 103/61 11/10/18 04:00 72 11/10/18 04:00 99.3 80 19 103/61 (75) 96 11/10/18 00:00 77 11/10/18 00:00 101.0 93 19 107/63 (78) 97 11/09/18 22:45 Nasal Cannula 2.0 11/09/18 22:00 75 98/48 11/09/18 21:00 Nasal Cannula 2.0 11/09/18 20:00 99.1 91 19 98/48 (65) 93 11/09/18 20:00 81 11/09/18 18:18 98.6 86 20 139/76 (97) 96 11/09/18 17:50 101.0 106 16 118/70 98 Nasal Cannula 2.0 Height (Feet): 5 Height (Inches): 10.00 Weight (Pounds): 170 Microbiology Date/Time Source Procedure Growth Status 11/09/18 16:18 Nasal Nares Influenza Types A,B Antigen (REENA) - Final Complete Laboratory Tests Test 11/10/18 05:38 White Blood Count 1.6 K/UL (4.8-10.8) *L Red Blood Count 2.65 M/UL (4.70-6.10) L Hemoglobin 8.6 G/DL (14.2-18.0) L Hematocrit 26.9 % (42.0-52.0) L Mean Corpuscular Volume 102 FL (80-99) H Mean Corpuscular Hemoglobin 32.6 PG (27.0-31.0) H Mean Corpuscular Hemoglobin Concent 32.1 G/DL (32.0-36.0) Red Cell Distribution Width 18.2 % (11.6-14.8) H Platelet Count 52 K/UL (150-450) L Mean Platelet Volume 8.2 FL (6.5-10.1) Neutrophils (%) (Auto) % (45.0-75.0) Lymphocytes (%) (Auto) % (20.0-45.0) Monocytes (%) (Auto) % (1.0-10.0) Eosinophils (%) (Auto) % (0.0-3.0) Basophils (%) (Auto) % (0.0-2.0) Differential Total Cells Counted 100 Neutrophils % (Manual) 44 % (45-75) L Lymphocytes % (Manual) 53 % (20-45) H Monocytes % (Manual) 2 % (1-10) Eosinophils % (Manual) 1 % (0-3) Basophils % (Manual) 0 % (0-2) Band Neutrophils 0 % (0-8) Platelet Estimate Decreased L Platelet Morphology Normal Anisocytosis 1+ Macrocytosis 1+ Sodium Level 135 MMOL/L (136-145) L Potassium Level 4.3 MMOL/L (3.5-5.1) Chloride Level 103 MMOL/L (98-107) Carbon Dioxide Level 27 MMOL/L (21-32) Anion Gap 5 mmol/L (5-15) Blood Urea Nitrogen 37 mg/dL (7-18) H Creatinine 1.8 MG/DL (0.55-1.30) H Estimat Glomerular Filtration Rate 37.8 mL/min (>60) Glucose Level 119 MG/DL (74-106) H Calcium Level 8.0 MG/DL (8.5-10.1) L Current Medications Medications (Trade) Dose Ordered Sig/Jet Route PRN Reason Start Time Stop Time Status Last Admin Dose Admin Acetaminophen (Tylenol) 650 mg Q4H PRN ORAL Mild Pain (Pain Scale 1-3) 11/09/18 19:15 12/09/18 19:14 11/10/18 11:20 Albuterol/ Ipratropium (Albuterol/ Ipratropium) 3 ml Q4H PRN HHN Shortness of Breath 11/09/18 19:15 11/14/18 19:14 Allopurinol (Allopurinol) 300 mg DAILY ORAL 11/10/18 09:00 12/10/18 08:59 11/10/18 09:07 Azithromycin 500 mg/Dextrose 275 ml @ 275 mls/hr Q24HRS IV 11/09/18 21:00 11/15/18 21:59 11/09/18 20:57 Ceftriaxone Sodium 1 gm/ Dextrose 55 ml @ 110 mls/hr Q24H IVPB 11/10/18 16:00 11/17/18 15:59 11/10/18 15:07 Dextrose (Dextrose 50%) 25 ml Q30M PRN IV Hypoglycemia 11/09/18 19:15 12/09/18 19:14 Dextrose (Dextrose 50%) 50 ml Q30M PRN IV Hypoglycemia 11/09/18 19:15 12/09/18 19:14 Famotidine (Pepcid) 40 mg DAILY ORAL 11/10/18 09:00 12/10/18 08:59 11/10/18 09:07 Insulin Aspart (NovoLOG) BEFORE MEALS AND HS SUBQ 11/09/18 21:00 12/09/18 20:59 11/10/18 12:57 Insulin Detemir (Levemir) 23 units Q24H SUBQ 11/09/18 21:00 12/09/18 20:59 11/09/18 21:04 Labetalol HCl (Normodyne) 200 mg Q8HR ORAL 11/09/18 22:00 12/09/18 21:59 Levothyroxine Sodium (Synthroid) 25 mcg DAILY@0630 ORAL 11/10/18 06:30 12/10/18 06:29 11/10/18 05:57 Paroxetine HCl (Paxil) 40 mg DAILY ORAL 11/10/18 09:00 12/10/18 08:59 11/10/18 09:07 Tamsulosin HCl (Flomax) 0.4 mg BEDTIME ORAL 11/09/18 21:00 12/09/18 20:59 11/09/18 21:01 Ino Duncan MD Nov 10, 2018 17:40
[2018-11-10] MEDS: Vancomycin 1.25 GM in NS 275 ML IVPB SCH (18:24)
--- NOTE | 2018-11-10 19:16 | NUR ---
HAND-OFF: Report given to STEPHANIE Walters.
--- NOTE | 2018-11-10 19:20 | NUR ---
NURSE NOTES: Received report from STEPHANIE Dunbar. Patient asleep, breathing even and unlabored on 2 L via NC. No s/sx of pain nor any discomfort at this time. IV site on R AC #22, patent and intact, Vancomycin running at this time. Bed at lowest position, call light within reach. Per STEPHANIE Dunbar, pt remains afebrile the whole day. On reverse isolation observed at all times. Son present at bedside. call light within reach. Will continue plan of care.
[2018-11-10] MEDS: Tamsulosin 0.4mg cap ORAL SCH (20:56)
[2018-11-10] MEDS: Levemir Flexpen SUBQ SCH (20:58)
[2018-11-10] MEDS: Azithromycin 500 MG in D5W 275 ML IV SCH (20:59)
[2018-11-10] MEDS ORDERED: Cefepime HCl 2 GM in NS 110 ML IVPB SCH (21:00)
--- NOTE | 2018-11-10 21:15 | Consultation ---
DATE OF CONSULTATION: 11/10/2018 ADDENDUM CONSULTING PHYSICIAN: Ino Duncan M.D. ATTENDING PHYSICIAN: Xu Fletcher M.D. I am going to also treat the patient with oseltamivir or Tamiflu for influenza infection. The influenza screen here was influenza antigen, which is not as sensitive as a PCR and the patient is high suspicion for possible viral syndrome and influenza infection. We will give Tamiflu at 30 mg b.i.d. because of elevated creatinine x5 days to empirically treat for influenza. As discussed earlier, we will change Rocephin to cefepime in addition to vancomycin and azithromycin, treat for sepsis and community-acquired pneumonia in the patient who has significant leukopenia and neutropenia. Ino Duncan M.D. DR: TYSON JOB#: [id number] CC:
[2018-11-11] VITALS: BP_SYST 132; BP_SYST 99; BP_DIAS 64; BP_DIAS 76
--- NOTE | 2018-11-11 01:15 | Progress Note ---
DATE: 11/10/2018 CARDIOLOGY PROGRESS NOTE SUBJECTIVE: The patient is having rigors, chills, and diffuse pain. PHYSICAL EXAMINATION: VITAL SIGNS: Temperature 101 max, blood pressure 97/50, heart rate 88, respiratory rate 20, oxygen sat 94% to 97% on 2 liters. GENERAL: Ill-appearing. LUNGS: Bilateral breath sounds. HEART: Regular rhythm and rate. Normal S1, S2. ABDOMEN: Soft. EXTREMITIES: No edema. LABORATORY DATA: White count 1.6, hemoglobin 8.6, potassium 4.3, BUN 37, creatinine 1.8. IMPRESSION: 1. Multiple myeloma. 2. Insulin-requiring diabetes mellitus. 3. Sepsis. 4. Dehydration. 5. Hypovolemia. 6. Hypertensive heart disease with his low blood pressure range. PLAN: 1. Off antihypertensives and diuretics. 2. Continue cautious hydration. 3. Antimicrobials per Infectious Disease ib[employer] web[employer] commerce consultant. 4. DVT and stress ulcer prophylaxis. 5. Nasal oxygen. Miguel Garcia M.D. DR: DANICA JOB#: [id number] CC:
--- NOTE | 2018-11-11 03:16 | Consultation ---
DATE OF CONSULTATION: 11/10/2018 INFECTIOUS DISEASE CONSULTATION CONSULTING PHYSICIAN: Ino Duncan M.D. ATTENDING PHYSICIAN: Xu Marinelli M.D. REFERRING PHYSICIAN: Xu Marinelli M.D. REASON FOR CONSULTATION: Sepsis, leukopenia, pneumonia, hypoxia, fevers. CHIEF COMPLAINT: The patient's chief complaint coming into the hospital is pneumonia, hypoxia. HISTORY OF PRESENT ILLNESS: This is a 67-year-old male with history of multiple myeloma, who comes in to [facility] with fever and chills. The patient was noted to be leukopenic. White count most recently is 1.6. The patient was febrile up to 102.7. The patient's influenza screen initially was negative. The patient clinically has a pneumonia with bilateral rales and rhonchi on exam. Chest x-ray initially showed right mid and upper lung opacity that is concerning for infiltrate. The patient was empirically started on antibiotics. He was given a dose of vancomycin, Rocephin, azithromycin treatment for community-acquired pneumonia. Because of the possibility of sepsis, pneumonia, fevers, leukopenia, and being immunocompromised, and history of multiple myeloma, Infectious Disease consultation is requested. The patient will be continued on vancomycin, Rocephin, and azithromycin for now. Cultures are pending. UA was benign. MAR was noted. Orders were noted. Notes were reviewed. Of note, patient has had these symptoms for at least several days. REVIEW OF SYSTEMS: GENERAL: He has generalized fatigue. No focal weakness. He is alert, responsive. He came in with fever and chills. HEAD AND NECK: No head pain or neck pain. No thrush. No neck stiffness. No headache. CARDIAC: No chest pain or palpitations. GASTROINTESTINAL: No nausea, vomiting, abdominal pain, or diarrhea. GENITOURINARY: No dysuria, frequency. PULMONARY: He came with cough, congestion, sputum production, hypoxia. SKIN: No rash or itching. EXTREMITIES: No extremity pain. SKIN: No rash. NEUROLOGIC: No seizures. No night sweats or weight loss. PAST MEDICAL HISTORY: Includes history of the following. The patient has a past medical history of multiple myeloma. The patient has an elevated creatinine, chronic kidney disease, and anemia. The patient has chronic pain syndrome, hyperlipidemia. He has history of diabetes, hypertension. He also has history of hyperlipidemia, diabetes mellitus, and hypertension. History of alcohol abuse in the past, history of gout. He comes in with acute kidney injury at this time in addition to chronic renal failure, history of hypothyroidism, history of hypertriglyceridemia, history of bone marrow transplant looks like, history of CHF, history of elevated BNP. ALLERGIES: No known drug allergies. No antibiotic allergies. SOCIAL HISTORY: Positive for alcohol use in the past, currently is negative. Currently, social history is negative for smoking, alcohol, drug abuse. It looks like alcohol use in the past. FAMILY HISTORY: Noncontributory. Negative for tuberculosis, cancer, or diabetes. MEDICATIONS: Upon reviewing the MAR, he is on the following medications, he is on Rocephin, azithromycin. He is given vancomycin and will have pharmacy dose vancomycin. He is on famotidine, allopurinol, Paxil, levothyroxine, labetalol, insulin, Flomax, albuterol, acetaminophen, intravenous fluids. Outside medications were noted and reconciled. Antibiotics, Rocephin, azithromycin, and vancomycin x1. We will have pharmacy dose. PHYSICAL EXAMINATION: VITAL SIGNS: Temperature maximum is 102.7, currently temperature 97.2, pulse 82, respiratory rate 20, blood pressure 112/51, and saturation 95%. T-max 102.7. Heart rate has been as high as 122, respiratory rate has been as high as 20. GENERAL: Alert and responsive, in no acute distress. He seems congested. HEAD AND NECK: Oral exam, no thrush. Eye exam, no icterus. Neck is supple. No JVD. Normocephalic. Neck is supple. HEART: Regular. No obvious gallop or murmur. ABDOMEN: Soft. Positive bowel sounds. Nontender. LUNGS: Bilateral rhonchi, rales, and crackles. SKIN: No other rash noted. MUSCULOSKELETAL: No effusion. Legs without cellulitis. No evidence of septic arthritis. PERIPHERAL VASCULAR: No gangrene or cyanosis. GENITOURINARY: He has no Williamson. He has no CVA tenderness. Line sites are without phlebitis. NEUROLOGIC: Intact, nonfocal. LABORATORY AND DIAGNOSTIC DATA: Laboratory data as follows: White count 1.6, hemoglobin 8.6, and platelet count is 62. White count yesterday was 2.2. The patient's creatinine is 1.8, creatinine yesterday was 2.2. LFTs were noted. Urinalysis was leukocyte esterase negative, 0 to 2 white blood cells. Sodium 135, potassium 4.3. Cultures pending. Influenza screen negative; however, this is an antigen test, not a PCR panel. Imaging studies, chest x-ray was concerning for an infiltrate in the right mid and upper lung area. Serology was ordered for Legionella mycoplasma. Sputum culture is also ordered in addition to other cultures. blood cultures were also ordered. ASSESSMENT AND PLAN: 1. The patient has sepsis, leukopenia, SIRS criteria, fevers as high as 102.7. The patient has severe leukopenia. Rule out neutropenia with sepsis. The patient is currently on vancomycin per pharmacy dosing, Rocephin, and azithromycin. azithromycin and vancomycin, we will change Rocephin to cefepime and thus we will upgrade Gram-negative coverage because of leukopenia and sepsis, must consider neutropenic sepsis and neutropenic fevers. Continue vancomycin and cefepime for now and azithromycin for methicillin-resistant Staphylococcus aureus pseudomonas coverage and atypical coverage, also Streptococcus pneumoniae coverage, Legionella mycoplasma coverage. Check serology for Legionella including urine antigen check. Check serology for Mycoplasma including IgM, IgG. Check Legionella urine antigen. Check sputum culture. Followup laboratories, chest x-ray. Continue vancomycin, cefepime, and azithromycin for sepsis pneumonia pending final workup. The patient may need further imaging such as CT scan if he does not improve. Watch the patient's temperatures, watch sepsis status, watch leukopenia at this time. 2. The patient has pancytopenia and history of multiple myeloma. The patient is immunocompromised. Continue treatment per primary consultants. 3. Acute kidney, elevated creatinine, chronic renal failure. Treatment per Nephrology. 4. History of diabetes. 5. Hypertension. 6. Blood sugar and blood pressure treatment for diabetes and hypertension per primary. 7. Hyperlipidemia. 8. Congestive heart failure, treatment per Cardiology. 9. Hypothyroidism. 10. Chronic pain syndrome. 11. History of gout. 12. History of alcohol abuse in the past. 13. Anemia, leukopenia, and thrombocytopenia. 14. Hypoxia. 15. CHF, treatment per cardiac consultants. 16. Social history currently is negative. 17. Family history is noncontributory. 18. MAR was noted. 19. Case was discussed with RN. 20. No known drug allergies. 21. Continue treatment per Dr. Marinelli and consultants. 22. Notes and records were noted. 23. Orders were entered. Ino Duncan M.D. DR: FILI JOB#: [id number] CC:
[2018-11-11 04:00] VITALS: BP 131/60
--- NOTE | 2018-11-11 04:21 | NUR ---
NURSE NOTES: Patient asleep, breathing even and unlabored, no s/sx of pain nor any discomfort at this time. Remains sinus rhythm at diagnostic cardiac sonographer. Bed at lowest position, call light within reach. Will continue to monitor.
[2018-11-11] MEDS: Labetalol 200mg tab ORAL SCH ×3 (06:07→20:43)
[2018-11-11] MEDS: Levothyroxine 25mcg tab ORAL SCH (06:07)
[2018-11-11] MEDS: NovoLOG Insulin Flexpen SUBQ SCH ×4 (06:08→20:50)
--- NOTE | 2018-11-11 06:31 | Consultation ---
DATE OF CONSULTATION: 11/10/2018 PAIN MANAGEMENT CONSULTATION CONSULTING PHYSICIAN: Sheng Duran M.D. REFERRING PHYSICIAN: Xu Marinelli M.D. PHYSICIAN HOME CARE ASSISTANT: Johnny Minor CHIEF COMPLAINT: Opioid addiction. HISTORY OF PRESENT ILLNESS: This is a 67-year-old male who is being seen in the Med/Surg floor of [facility] for initial pain management consultation. The patient is admitted under the care of Dr. Marinelli due to pneumonia and we were consulted due to being on Suboxone. This was found on the [facility] PDMP report. The patient is taking Suboxone 8 mg/2 mg sublingual film 3 times a day due to opioid addiction. This will be restarted as this medication. PAST MEDICAL HISTORY: Diabetes mellitus, glaucoma, gout, and hypertension. PAST SURGICAL HISTORY: Bone marrow transplant. SOCIAL HISTORY: History of alcohol abuse and opioid addiction. MEDICATIONS: Albuterol, Lasix, hydrochlorothiazide, Lantus, and Suboxone. REVIEW OF SYSTEMS: Denies rash, fever, chills, sweating, dizziness, drowsiness, blurred vision, sore throat, or change in weight. No shortness of breath or chest pain. No nausea, vomiting, diarrhea, or blood in the stool or urine. No bowel or bladder incontinence. No dysuria. PHYSICAL EXAMINATION: GENERAL: Alert, awake, and oriented. VITAL SIGNS: Blood pressure 128/68 heart rate is 67, oxygen saturation is 98%, and respiratory rate 17. HEENT: PERRLA. NECK: Range of motion is decreased due to the patient's clinical condition. LUNGS: Decreased breath sounds bilaterally. HEART: Regular. ABDOMEN: Obese. EXTREMITIES: No cyanosis. No clubbing. No edema. NEUROLOGIC: Sensory is intact. Reflexes are not obtainable. No adenopathy. ASSESSMENT/PLAN: This is a 67-year-old male with opioid dependency, on Suboxone. He will be started on Suboxone 8 mg film 3 times a day. The patient was discussed with Dr. Duran and Dr. Duran concurred. We will follow the patient. Thank you very much for the courtesy of this consultation. Sheng Duran M.D. CRAIG Minor DR: NITHYA JOB#: [id number] CC: PAT
--- NOTE | 2018-11-11 06:37 | Pulmonology Progress Note ---
Assessment/Plan Assessment/Plan 1. Pneumonia. 2. Multiple myeloma. 3. Chronic pain. 4. Hyperlipidemia. 5. Diabetes mellitus. 6. Hypertension. 7. History of alcohol abuse. 8. Gout. 9. Leukopenia DISCUSSION: Continue broad-spectrum antibiotics. 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 Seen by ID and nephrology Subjective Interval Events: Looking and feeling better Constitutional: Reports: no symptoms HEENT: Repors: no symptoms Respiratory: Reports: no symptoms Cardiovascular: Reports: no symptoms Gastrointestinal/Abdominal: Reports: no symptoms Genitourinary: Reports: no symptoms Allergies: Coded Allergies: No Known Allergies (Unverified , 11/09/18) Objective Last 24 Hour Vital Signs Date Time Temp Pulse Resp B/P (MAP) Pulse Ox O2 Delivery O2 Flow Rate FiO2 11/11/18 06:07 78 119/78 11/11/18 04:00 69 11/11/18 04:00 98.5 75 18 131/60 (83) 96 11/11/18 00:00 77 11/11/18 00:00 99.1 81 18 132/64 (86) 95 11/10/18 22:05 77 115/67 11/10/18 21:00 Nasal Cannula 2.0 11/10/18 20:00 78 18 Nasal Cannula 2.0 28 11/10/18 20:00 97.8 98 16 102/74 (83) 91 11/10/18 20:00 Nasal Cannula 2.0 28 11/10/18 20:00 92 Nasal Cannula 3.0 32 11/10/18 20:00 93 11/10/18 16:16 67 11/10/18 16:00 97.2 82 20 112/51 (71) 95 11/10/18 14:00 82 112/51 11/10/18 12:00 97.9 122 18 125/72 (89) 99 11/10/18 11:50 102.7 11/10/18 11:46 77 11/10/18 11:02 98.4 75 108/56 (73) 11/10/18 09:00 Nasal Cannula 2.0 11/10/18 08:00 100.2 88 20 97/50 (66) 94 11/10/18 07:17 97 Intake and Output 11/10/18 11/11/18 19:00 07:00 Intake Total 240 ml 780 ml Balance 240 ml 780 ml Intake Oral 240 ml 120 ml IV Total 660 ml # Voids 2 2 General Appearance: no acute distress HEENT: normocephalic Respiratory/Chest: chest wall non-tender, lungs clear Cardiovascular: normal peripheral pulses, normal rate Abdomen: normal bowel sounds, soft, non tender Microbiology Date/Time Source Procedure Growth Status 11/09/18 15:30 Blood Blood Culture - Preliminary NO GROWTH AFTER 24 HOURS Resulted 11/09/18 15:05 Blood Blood Culture - Preliminary NO GROWTH AFTER 24 HOURS Resulted 11/09/18 16:18 Nasal Nares Influenza Types A,B Antigen (REENA) - Final Complete Laboratory Tests 11/10/18 18:35: Mycoplasma pneumoniae IgG Antibody [Pending], Mycoplasma pneumoniae IgM Ab Titer [Pending] Current Medications Medications (Trade) Dose Ordered Sig/Jet Route PRN Reason Start Time Stop Time Status Last Admin Dose Admin Acetaminophen (Tylenol) 650 mg Q4H PRN ORAL Mild Pain (Pain Scale 1-3) 11/09/18 19:15 12/09/18 19:14 11/10/18 11:20 Albuterol/ Ipratropium (Albuterol/ Ipratropium) 3 ml Q4H PRN HHN Shortness of Breath 11/09/18 19:15 11/14/18 19:14 Allopurinol (Allopurinol) 300 mg DAILY ORAL 11/10/18 09:00 12/10/18 08:59 11/10/18 09:07 Azithromycin 500 mg/Dextrose 275 ml @ 275 mls/hr Q24HRS IV 11/09/18 21:00 11/15/18 21:59 11/10/18 20:59 Cefepime HCl 2 gm/ Sodium Chloride 110 ml @ 220 mls/hr QHS IVPB 11/10/18 21:00 11/17/18 20:59 11/10/18 22:02 Dextrose (Dextrose 50%) 25 ml Q30M PRN IV Hypoglycemia 11/09/18 19:15 12/09/18 19:14 Dextrose (Dextrose 50%) 50 ml Q30M PRN IV Hypoglycemia 11/09/18 19:15 12/09/18 19:14 Famotidine (Pepcid) 40 mg DAILY ORAL 11/10/18 09:00 12/10/18 08:59 11/10/18 09:07 Insulin Aspart (NovoLOG) BEFORE MEALS AND HS SUBQ 11/09/18 21:00 12/09/18 20:59 11/11/18 06:08 Insulin Detemir (Levemir) 23 units Q24H SUBQ 11/09/18 21:00 12/09/18 20:59 11/10/18 20:58 Labetalol HCl (Normodyne) 200 mg Q8HR ORAL 11/09/18 22:00 12/09/18 21:59 11/11/18 06:07 Levothyroxine Sodium (Synthroid) 25 mcg DAILY@0630 ORAL 11/10/18 06:30 12/10/18 06:29 11/11/18 06:07 Non-Formulary Medication (Non-Formulary Med) 1 ea DAILY ORAL 11/10/18 17:30 12/10/18 17:29 UNV Oseltamivir Phosphate (Tamiflu) 30 mg TWICE A DAY ORAL 11/10/18 18:00 11/15/18 17:59 11/10/18 18:24 Paroxetine HCl (Paxil) 40 mg DAILY ORAL 11/10/18 09:00 12/10/18 08:59 11/10/18 09:07 Tamsulosin HCl (Flomax) 0.4 mg BEDTIME ORAL 11/09/18 21:00 12/09/18 20:59 11/10/18 20:56 Vancomycin HCl (Vanco rx to dose) 1 ea DAILY PRN MISC Per rx protocol 11/10/18 17:30 12/10/18 17:29 Vancomycin HCl 1.25 gm/Sodium Chloride 275 ml @ 183.708 mls/hr Q24H IVPB 11/10/18 18:30 11/15/18 18:29 11/10/18 18:24 Xu Marinelli MD Nov 11, 2018 06:37
--- NOTE | 2018-11-11 07:10 | NUR ---
HAND-OFF: Report given to STEPHANIE Tamayo. Endorsed plan of care.
[2018-11-11 07:38] LABS: HEMATOCRIT 23.9 % (42.0-52.0); HEMOGLOBIN 7.7 G/DL (14.2-18.0); MEAN CORPUSCULAR VOLUME 101 FL (80-99); PLATELET COUNT 47 K/UL (150-450); RED BLOOD COUNT 2.38 M/UL (4.70-6.10); RED CELL DISTRIBUTION WIDTH 18.1 % (11.6-14.8)
--- NOTE | 2018-11-11 07:41 | NUR ---
NURSE NOTES: Received report from Tamela/RN. Patient is alert and oriented *4, eating breakfast. Bed in low position, Call light in reach. Will continue plan of care.
[2018-11-11 07:45] LABS: WHITE BLOOD COUNT 1.4 K/UL (4.8-10.8)
[2018-11-11 08:00] VITALS: BP 111/54
[2018-11-11 08:04] LABS: ALANINE AMINOTRANSFERASE 33 U/L (12-78); ALBUMIN 2.3 G/DL (3.4-5.0); ALBUMIN/GLOBULIN RATIO 0.5 (1.0-2.7); ALKALINE PHOSPHATASE 52 U/L (46-116); ANION GAP 8 mmol/L (5-15); ASPARTATE AMINO TRANSFERASE 33 U/L (15-37); BILIRUBIN,TOTAL 0.5 MG/DL (0.2-1.0); BLOOD UREA NITROGEN 36 mg/dL (7-18); CALCIUM 7.8 MG/DL (8.5-10.1); CARBON DIOXIDE 27 MMOL/L (21-32); CHLORIDE 103 MMOL/L (98-107); SODIUM 137 MMOL/L (136-145)
--- NOTE | 2018-11-11 08:05 | Nephrology Progress Note ---
Assessment/Plan Assessment/Plan A/P 1) XAVI on CKD 3B- Cr improved 2.2---> 1.8. AM LABS pending - due to sepsis/hypotension and volume depletion 2) Hypotension- improved with BP medication adjustment 3) Hyponatremia- DCed HCT and changed IVFs. AM LABS pending 4) Sepsis leukopenia- per ID 5) MM- s/p bone marrow tx 2 years ago Subjective Date patient seen: Nov 11, 2018 Time patient seen: 08:03 ROS Limited/Unobtainable: Yes Allergies: Coded Allergies: No Known Allergies (Unverified , 11/09/18) Subjective Patient on the phone Objective Last 24 Hour Vital Signs Date Time Temp Pulse Resp B/P (MAP) Pulse Ox O2 Delivery O2 Flow Rate FiO2 11/11/18 06:07 78 119/78 11/11/18 04:00 69 11/11/18 04:00 98.5 75 18 131/60 (83) 96 11/11/18 00:00 77 11/11/18 00:00 99.1 81 18 132/64 (86) 95 11/10/18 22:05 77 115/67 11/10/18 21:00 Nasal Cannula 2.0 11/10/18 20:00 78 18 Nasal Cannula 2.0 28 11/10/18 20:00 97.8 98 16 102/74 (83) 91 11/10/18 20:00 Nasal Cannula 2.0 28 11/10/18 20:00 92 Nasal Cannula 3.0 32 11/10/18 20:00 93 11/10/18 16:16 67 11/10/18 16:00 97.2 82 20 112/51 (71) 95 11/10/18 14:00 82 112/51 11/10/18 12:00 97.9 122 18 125/72 (89) 99 11/10/18 11:50 102.7 11/10/18 11:46 77 11/10/18 11:02 98.4 75 108/56 (73) 11/10/18 09:00 Nasal Cannula 2.0 Intake and Output 11/10/18 11/11/18 19:00 07:00 Intake Total 240 ml 780 ml Balance 240 ml 780 ml Intake Oral 240 ml 120 ml IV Total 660 ml # Voids 2 2 Laboratory Tests 11/10/18 18:35: Mycoplasma pneumoniae IgG Antibody [Pending], Mycoplasma pneumoniae IgM Ab Titer [Pending] 11/11/18 05:42: White Blood Count 1.4*L, Red Blood Count 2.38L, Hemoglobin 7.7L, Hematocrit 23.9L, Mean Corpuscular Volume 101H, Mean Corpuscular Hemoglobin 32.4H, Mean Corpuscular Hemoglobin Concent 32.2, Red Cell Distribution Width 18.1H, Platelet Count 47L, Mean Platelet Volume 10.2H, Neutrophils (%) (Auto) , Lymphocytes (%) (Auto) , Monocytes (%) (Auto) , Eosinophils (%) (Auto) , Basophils (%) (Auto) , Neutrophils % (Manual) [Pending], Lymphocytes % (Manual) [Pending], Platelet Estimate [Pending], Platelet Morphology [Pending], Sodium Level [Pending], Potassium Level [Pending], Chloride Level [Pending], Carbon Dioxide Level [Pending], Blood Urea Nitrogen [Pending], Creatinine [Pending], Estimat Glomerular Filtration Rate [Pending], Glucose Level [Pending], Calcium Level [Pending], Total Bilirubin [Pending], Aspartate Amino Transf (AST/SGOT) [ Pending], Alanine Aminotransferase (ALT/SGPT) [Pending], Alkaline Phosphatase [ Pending], Total Protein [Pending], Albumin [Pending], Globulin [Pending] Height (Feet): 5 Height (Inches): 10.00 Weight (Pounds): 170 General Appearance: no apparent distress EENT: normal ENT inspection Neck: normal alignment, supple Cardiovascular: normal rate, regular rhythm Respiratory/Chest: rhonchi - bilaterally Abdomen: non tender, soft Edema: no edema noted Arm (L), no edema noted Arm (R), no edema noted Leg (L), no edema noted Leg (R), no edema noted Pedal (L), no edema noted Pedal (R), no edema noted Generalized Winston Tong MD Nov 11, 2018 08:05
--- NOTE | 2018-11-11 08:35 | NUR ---
NURSE NOTES: Notified Dr. Marinelli about Hgb 7.7, No new order at this time. Will continue plan of care.
[2018-11-11] MEDS: PARoxetine 20mg tab ORAL SCH (08:36)
--- NOTE | 2018-11-11 08:55 | General Progress Note ---
Assessment/Plan Assessment/Plan (1) Opioid dependency Continued on Suboxone D/w Dr. Duran and he concurred. Subjective Date patient seen: Nov 11, 2018 Time patient seen: 07:15 - am Constitutional: Reports: weakness HEENT: Reports: no symptoms Cardiovascular: Reports: no symptoms Respiratory: Reports: no symptoms Gastrointestinal/Abdominal: Reports: no symptoms Genitourinary: Reports: no symptoms Neurologic/Psychiatric: Reports: no symptoms Endocrine: Reports: no symptoms Hematologic/Lymphatic: Reports: no symptoms Allergies: Coded Allergies: No Known Allergies (Unverified , 11/09/18) Subjective Patient is in bed and reports no pain waiting for his dose of Suboxone. Objective Last 24 Hour Vital Signs Date Time Temp Pulse Resp B/P (MAP) Pulse Ox O2 Delivery O2 Flow Rate FiO2 11/11/18 06:07 78 119/78 11/11/18 04:00 69 11/11/18 04:00 98.5 75 18 131/60 (83) 96 11/11/18 00:00 77 11/11/18 00:00 99.1 81 18 132/64 (86) 95 11/10/18 22:05 77 115/67 11/10/18 21:00 Nasal Cannula 2.0 11/10/18 20:00 78 18 Nasal Cannula 2.0 28 11/10/18 20:00 97.8 98 16 102/74 (83) 91 11/10/18 20:00 Nasal Cannula 2.0 28 11/10/18 20:00 92 Nasal Cannula 3.0 32 11/10/18 20:00 93 11/10/18 16:16 67 11/10/18 16:00 97.2 82 20 112/51 (71) 95 11/10/18 14:00 82 112/51 11/10/18 12:00 97.9 122 18 125/72 (89) 99 11/10/18 11:50 102.7 11/10/18 11:46 77 11/10/18 11:02 98.4 75 108/56 (73) 11/10/18 09:00 Nasal Cannula 2.0 Intake and Output 11/10/18 11/11/18 19:00 07:00 Intake Total 240 ml 780 ml Balance 240 ml 780 ml Intake Oral 240 ml 120 ml IV Total 660 ml # Voids 2 2 Laboratory Tests 11/10/18 18:35: Mycoplasma pneumoniae IgG Antibody [Pending], Mycoplasma pneumoniae IgM Ab Titer [Pending] 11/11/18 05:42: White Blood Count 1.4*L, Red Blood Count 2.38L, Hemoglobin 7.7L, Hematocrit 23.9L, Mean Corpuscular Volume 101H, Mean Corpuscular Hemoglobin 32.4H, Mean Corpuscular Hemoglobin Concent 32.2, Red Cell Distribution Width 18.1H, Platelet Count 47L, Mean Platelet Volume 10.2H, Neutrophils (%) (Auto) , Lymphocytes (%) (Auto) , Monocytes (%) (Auto) , Eosinophils (%) (Auto) , Basophils (%) (Auto) , Neutrophils % (Manual) [Pending], Lymphocytes % (Manual) [Pending], Platelet Estimate [Pending], Platelet Morphology [Pending], Sodium Level 137, Potassium Level 4.0, Chloride Level 103, Carbon Dioxide Level 27, Anion Gap 8, Blood Urea Nitrogen 36H, Creatinine 2.0H, Estimat Glomerular Filtration Rate 33.5, Glucose Level 95, Calcium Level 7.8L, Total Bilirubin 0.5 , Aspartate Amino Transf (AST/SGOT) 33, Alanine Aminotransferase (ALT/SGPT) 33, Alkaline Phosphatase 52, Total Protein 6.6, Albumin 2.3L, Globulin 4.3, Albumin/ Globulin Ratio 0.5L Height (Feet): 5 Height (Inches): 10.00 Weight (Pounds): 170 General Appearance: no apparent distress, alert EENT: PERRL/EOMI, normal ENT inspection Neck: non-tender, normal alignment Cardiovascular: normal rate, regular rhythm Respiratory/Chest: lungs clear, normal breath sounds Abdomen: normal bowel sounds, non tender Extremities: non-tender Edema: trace edema Neurologic: alert, oriented x 3 Skin: warm/dry Alonso Mariscal Nov 11, 2018 08:55
--- NOTE | 2018-11-11 10:44 | NUR ---
RADIOLOGY DEPT CHEST X-RAY DONE. -P.DYE
[2018-11-11] MEDS ORDERED: REVLIMID5 MG PO (11:03)
--- NOTE | 2018-11-11 12:20 | Diagnostic Imaging Report ---
Indication: Shortness of breath Technique: One view of the chest Comparison: 11/09/2018 Findings: Body habitus limits evaluation. Patient is rotated to the right. Allowing for differences in exposure technique, probably unchanged right upper lobe infiltrate and generalized interstitial edema. The heart is massively enlarged. Impression: Unchanged, over 2 days, findings as above.
[2018-11-11 12:27] VITALS: BP 102/54
[2018-11-11] MEDS: REVLIMID 5 MG ORAL SCH (13:23)
--- NOTE | 2018-11-11 13:56 | Infectious Diseases Prog Note ---
Assessment/Plan Assessment/Plan ASSESSMENT AND PLAN: 1. sepsis, pneumonia, fevers, leukopenia, neutropenia, tho, ? influenza infection/viral syndrome - - vancomycin, cefepime, azithromycin, tamiflu (11/10/18) - f/u on sputum culture, serology and chest x-ray - monitor labs, cr, wbc - clinically better, fevers better 2. The patient has pancytopenia and history of multiple myeloma. The patient is immunocompromised. Continue treatment per primary and consultants. 3. Acute kidney, elevated creatinine, chronic renal failure. Treatment per Nephrology. 4. History of diabetes. 5. Hypertension. 6. Blood sugar and blood pressure treatment for diabetes and hypertension per primary. 7. Hyperlipidemia. 8. Congestive heart failure, treatment per Cardiology. 9. Hypothyroidism. 10. Chronic pain syndrome. 11. History of gout. 12. History of alcohol abuse in the past. 13. Anemia, leukopenia, and thrombocytopenia. 14. Hypoxia. 15. CHF, treatment per cardiac consultants. 16. Social history currently is negative. 17. Family history is noncontributory. 18. MAR was noted. 19. Case was discussed with RN. 20. No known drug allergies. 21. Continue treatment per Dr. Marinelli and consultants. 22. Notes and records were noted. 23. Orders were entered. Subjective Constitutional: Reports: fatigue, other - no chills ; Denies: fever HEENT: Reports: congestion - less Respiratory: Reports: shortness of breath - less Cardiovascular: Denies: chest pain Gastrointestinal/Abdominal: Denies: nausea, vomiting, diarrhea Genitourinary: Denies: dysuria, hematuria, frequency Neurologic: Denies: headache, weakness Psychiatric: Denies: depression Skin: Denies: rash Hematologic: Denies: bleeding Musculoskeletal: Denies: pain Allergies: Coded Allergies: No Known Allergies (Unverified , 11/09/18) Objective Vital Signs Last 24 Hour Vital Signs Date Time Temp Pulse Resp B/P (MAP) Pulse Ox O2 Delivery O2 Flow Rate FiO2 11/11/18 13:45 77 113/76 11/11/18 12:27 97.4 74 23 102/54 (70) 96 11/11/18 12:00 79 11/11/18 09:00 Nasal Cannula 2.0 11/11/18 08:00 70 11/11/18 08:00 98.8 75 18 111/54 (73) 96 11/11/18 06:07 78 119/78 11/11/18 04:00 69 11/11/18 04:00 98.5 75 18 131/60 (83) 96 11/11/18 00:00 77 11/11/18 00:00 99.1 81 18 132/64 (86) 95 11/10/18 22:05 77 115/67 11/10/18 21:00 Nasal Cannula 2.0 11/10/18 20:00 78 18 Nasal Cannula 2.0 28 11/10/18 20:00 97.8 98 16 102/74 (83) 91 11/10/18 20:00 Nasal Cannula 2.0 28 11/10/18 20:00 92 Nasal Cannula 3.0 32 11/10/18 20:00 93 11/10/18 16:16 67 11/10/18 16:00 97.2 82 20 112/51 (71) 95 11/10/18 14:00 82 112/51 Height (Feet): 5 Height (Inches): 10.00 Weight (Pounds): 170 General Appearance: no acute distress HEENT: normocephalic, atraumatic, anicteric, mucous membranes moist Respiratory/Chest: no accessory muscle use, crackles/rales - less, rhonchi - bilaterally - less Cardiovascular: normal rate, regular rhythm, no gallop/murmur, no JVD Abdomen: normal bowel sounds, soft, non tender, no organomegaly, non distended Genitourinary: other - no [place], no cva pain Extremities: no cyanosis Skin: no rash 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 Patient is rotated to the right. Allowing for differences in exposure technique, probably unchanged right upper lobe infiltrate and generalized interstitial edema. The heart is massively enlarged. Impression: Unchanged, over 2 days, findings as above. Microbiology Date/Time Source Procedure Growth Status 11/09/18 15:30 Blood Blood Culture - Preliminary NO GROWTH AFTER 24 HOURS Resulted 11/09/18 15:05 Blood Blood Culture - Preliminary NO GROWTH AFTER 24 HOURS Resulted 11/09/18 16:18 Nasal Nares Influenza Types A,B Antigen (REENA) - Final Complete Laboratory Tests Test 11/10/18 18:35 11/11/18 05:42 Mycoplasma pneumoniae IgG Antibody Pending Mycoplasma pneumoniae IgM Ab Titer Pending White Blood Count 1.4 K/UL (4.8-10.8) *L Red Blood Count 2.38 M/UL (4.70-6.10) L Hemoglobin 7.7 G/DL (14.2-18.0) L Hematocrit 23.9 % (42.0-52.0) L Mean Corpuscular Volume 101 FL (80-99) H Mean Corpuscular Hemoglobin 32.4 PG (27.0-31.0) H Mean Corpuscular Hemoglobin Concent 32.2 G/DL (32.0-36.0) Red Cell Distribution Width 18.1 % (11.6-14.8) H Platelet Count 47 K/UL (150-450) L Mean Platelet Volume 10.2 FL (6.5-10.1) H Neutrophils (%) (Auto) % (45.0-75.0) Lymphocytes (%) (Auto) % (20.0-45.0) Monocytes (%) (Auto) % (1.0-10.0) Eosinophils (%) (Auto) % (0.0-3.0) Basophils (%) (Auto) % (0.0-2.0) Differential Total Cells Counted 100 Neutrophils % (Manual) 50 % (45-75) Lymphocytes % (Manual) 48 % (20-45) H Monocytes % (Manual) 2 % (1-10) Eosinophils % (Manual) 0 % (0-3) Basophils % (Manual) 0 % (0-2) Band Neutrophils 0 % (0-8) Platelet Estimate Decreased L Platelet Morphology Normal Anisocytosis 1+ Macrocytosis 1+ Sodium Level 137 MMOL/L (136-145) Potassium Level 4.0 MMOL/L (3.5-5.1) Chloride Level 103 MMOL/L (98-107) Carbon Dioxide Level 27 MMOL/L (21-32) Anion Gap 8 mmol/L (5-15) Blood Urea Nitrogen 36 mg/dL (7-18) H Creatinine 2.0 MG/DL (0.55-1.30) H Estimat Glomerular Filtration Rate 33.5 mL/min (>60) Glucose Level 95 MG/DL (74-106) Calcium Level 7.8 MG/DL (8.5-10.1) L Total Bilirubin 0.5 MG/DL (0.2-1.0) Aspartate Amino Transf (AST/SGOT) 33 U/L (15-37) Alanine Aminotransferase (ALT/SGPT) 33 U/L (12-78) Alkaline Phosphatase 52 U/L (46-116) Total Protein 6.6 G/DL (6.4-8.2) Albumin 2.3 G/DL (3.4-5.0) L Globulin 4.3 g/dL Albumin/Globulin Ratio 0.5 (1.0-2.7) L Current Medications Medications (Trade) Dose Ordered Sig/Jet Route PRN Reason Start Time Stop Time Status Last Admin Dose Admin Acetaminophen (Tylenol) 650 mg Q4H PRN ORAL Mild Pain (Pain Scale 1-3) 11/09/18 19:15 12/09/18 19:14 11/10/18 11:20 Albuterol/ Ipratropium (Albuterol/ Ipratropium) 3 ml Q4H PRN HHN Shortness of Breath 11/09/18 19:15 11/14/18 19:14 Allopurinol (Allopurinol) 300 mg DAILY ORAL 11/10/18 09:00 12/10/18 08:59 11/11/18 08:36 Azithromycin 500 mg/Dextrose 275 ml @ 275 mls/hr Q24HRS IV 11/09/18 21:00 11/15/18 21:59 11/10/18 20:59 Cefepime HCl 2 gm/ Sodium Chloride 110 ml @ 220 mls/hr QHS@2200 IVPB 11/11/18 22:00 11/17/18 20:59 Dextrose (Dextrose 50%) 25 ml Q30M PRN IV Hypoglycemia 11/09/18 19:15 12/09/18 19:14 Dextrose (Dextrose 50%) 50 ml Q30M PRN IV Hypoglycemia 11/09/18 19:15 12/09/18 19:14 Famotidine (Pepcid) 40 mg DAILY ORAL 11/10/18 09:00 12/10/18 08:59 11/11/18 08:35 Insulin Aspart (NovoLOG) BEFORE MEALS AND HS SUBQ 11/09/18 21:00 12/09/18 20:59 11/11/18 11:58 Insulin Detemir (Levemir) 23 units Q24H SUBQ 11/09/18 21:00 12/09/18 20:59 11/10/18 20:58 Labetalol HCl (Normodyne) 200 mg Q8HR ORAL 11/09/18 22:00 12/09/18 21:59 11/11/18 06:07 Levothyroxine Sodium (Synthroid) 25 mcg DAILY@0630 ORAL 11/10/18 06:30 12/10/18 06:29 11/11/18 06:07 Oseltamivir Phosphate (Tamiflu) 30 mg TWICE A DAY ORAL 11/10/18 18:00 11/15/18 17:59 11/11/18 08:37 Paroxetine HCl (Paxil) 40 mg DAILY ORAL 11/10/18 09:00 12/10/18 08:59 11/11/18 08:36 Patient Own Medication (Patient's Own Med) 1 ea DAILY ORAL 11/11/18 13:00 12/11/18 12:59 11/11/18 13:23 Tamsulosin HCl (Flomax) 0.4 mg BEDTIME ORAL 11/09/18 21:00 12/09/18 20:59 11/10/18 20:56 Vancomycin HCl (Vanco rx to dose) 1 ea DAILY PRN MISC Per rx protocol 11/10/18 17:30 12/10/18 17:29 Vancomycin HCl 1.25 gm/Sodium Chloride 275 ml @ 183.708 mls/hr Q24H IVPB 11/10/18 18:30 11/15/18 18:29 11/10/18 18:24 Ino Duncan MD Nov 11, 2018 13:56
[2018-11-11 16:00] VITALS: BP 106/62
[2018-11-11] MEDS: Vancomycin 1.25 GM in NS 275 ML IVPB SCH (17:38)
--- NOTE | 2018-11-11 19:25 | NUR ---
NURSE NOTES: Received report form Mary BROWN, pt. in bed awake, A/O x's4- Ivorian speaking- able to make needs known. at bedside, no signs or symptoms of acute cardiac or respiratory distress noted, bed in lowest position and call light within easy reach, bed alarm on side rails up x's3 - safety brakes engaged, pt. appears to be sating at 97% on 2L NC, per endorsement pt. able to ambulate to bathroom- pt. aware to ask for assistance when ambulating, urinal at bedside and within easy reach, RT. AC 22G- IV intact but not patent- per endorsement will insert new IV. Safety measures continued, will continue with plan of care.
--- NOTE | 2018-11-11 19:28 | NUR ---
HAND-OFF: Report given to STEPHANIE Enriquez. Patient is in stable condition. Endorsed plan of care.
[2018-11-11 20:00] VITALS: BP 99/58
[2018-11-11] MEDS: Tamsulosin 0.4mg cap ORAL SCH (20:48)
[2018-11-11] MEDS: Levemir Flexpen SUBQ SCH (20:50)
[2018-11-11] MEDS: Azithromycin 500 MG in D5W 275 ML IV SCH (21:34)
[2018-11-11] MEDS ORDERED: Cefepime HCl 2 GM in NS 110 ML IVPB SCH (22:00)
--- NOTE | 2018-11-11 22:46 | Progress Note ---
DATE: 11/11/2018 CARDIOLOGY PROGRESS NOTE SUBJECTIVE: The patient is afebrile. He has less congestion. Blood pressure stabilized. OBJECTIVE: VITAL SIGNS: Blood pressure 102/54, pulse rate 74, and respiratory rate 23. LUNGS: With few rhonchi. CARDIAC: Regular rhythm and rate. Normal S1, S2 with a fourth heart sound. ABDOMEN: Soft. EXTREMITIES: Trace edema. DIAGNOSTIC DATA: Chest x-ray with infiltrate in the right and mild edema, cardiomegaly. IMPRESSION: 1. Pneumonia. 2. Sepsis. 3. Multiple myeloma. 4. Pancytopenia. 5. Cardiomyopathy. 6. Acute on chronic diastolic congestive heart failure. PLAN: 1. Antimicrobials. 2. Bronchodilators. 3. Respiratory hygiene. 4. Off thiazide diuretic. 5. Continue beta-raza. 6. Insulin titration by sliding scale. Miguel Garcia M.D. DR: BRISA JOB#: [id number] CC:
[2018-11-12 04:00] VITALS: BP 105/67
--- NOTE | 2018-11-12 04:20 | NUR ---
NURSE NOTES: pt. called- went to assist patient- pt. stating he has to use the bathroom to urinate. Encouraged patient to use urinal- as endorsed by previous shift pt. has steady gait- and that b/p has been running low. pt. refused and got up out of bed anyway and started to make jokes pretending like he was going to fall and exhibiting aggressive behavior. Patient then walked to the bathroom- gait was unsteady- pt. continued to refuse to use urinal- explained risks 3 times-pt. still continued to refuse. Addendum: 11/12/18 at 0525 by JADE BAILEY RN RN correction to msg above - pt. has unsteady gait. Charge nurse made aware of patients behavior.
[2018-11-12] MEDS: NovoLOG Insulin Flexpen SUBQ SCH ×4 (05:31→21:32)
[2018-11-12] MEDS: Levothyroxine 25mcg tab ORAL SCH (05:32)
[2018-11-12 07:07] LABS: HEMATOCRIT 24.8 % (42.0-52.0); MEAN CORPUSCULAR VOLUME 99 FL (80-99); PLATELET COUNT 48 K/UL (150-450); RED BLOOD COUNT 2.49 M/UL (4.70-6.10); RED CELL DISTRIBUTION WIDTH 18.1 % (11.6-14.8)
--- NOTE | 2018-11-12 07:10 | NUR ---
HAND-OFF: Report given to Nick RN, pt. remains stable and no signs of distress noted.
[2018-11-12 07:11] LABS: WHITE BLOOD COUNT 1.5 K/UL (4.8-10.8)
[2018-11-12 07:20] LABS: ANION GAP 9 mmol/L (5-15); BLOOD UREA NITROGEN 46 mg/dL (7-18); CALCIUM 7.7 MG/DL (8.5-10.1); CARBON DIOXIDE 25 MMOL/L (21-32); CHLORIDE 103 MMOL/L (98-107); CREATININE 2.3 MG/DL (0.55-1.30); POTASSIUM 3.9 MMOL/L (3.5-5.1); SODIUM 137 MMOL/L (136-145)
--- NOTE | 2018-11-12 07:45 | NUR ---
NURSE NOTES: Pt in bed in low position on Rt lateral, pt alert and awake Ox4, call light at bedside, bed alarm on, according to night nurse pt gait is unsteady, pt does make needs and wants known, pt on Neutrapenic precausions, pt on NC at 2L, 2 rails up, urinal at bedside, lab called about WBC and reported a slight improvement of 1.4 to 1.5, IV intact and patent, pt denies pain, no s/s of distress or sob noted.
[2018-11-12 08:00] VITALS: BP 95/57
--- NOTE | 2018-11-12 08:11 | NUR ---
CASE MANAGEMENT:REVIEW 11/12/18 SI: PNEUMONIA. SEPSIS. AC/CHR HF 97.7 64 20 105/67 93% ON 2L/NC WBC-1.7 H/H-8.0/24.8 PLT-48 BUN+46 CR+2.3 IS: IV CEFEPIME QHS IV VANCOMYCIN Q24 IV AZITHROMYCIN Q24 LABETALOL PO Q12 TAMIFLU PO BID FLOMAX PO QHS : TELEMETRY STATUS DCP: PATIENT IS FROM HOME
--- NOTE | 2018-11-12 08:57 | Nephrology Progress Note ---
Assessment/Plan Assessment/Plan A/P 1) XAVI on CKD 3B- Cr worsened to 2.3 due to hypotension - due to sepsis/hypotension and volume depletion - hold BP medications and start IVFs 2) Hypotension- hold BP medications 3) Hyponatremia- resolved 4) Sepsis- leukopenia/PNA- per ID 5) MM- s/p bone marrow tx 2 years ago Subjective Date patient seen: Nov 12, 2018 Time patient seen: 08:55 ROS Limited/Unobtainable: No Respiratory: Reports: cough, shortness of breath Allergies: Coded Allergies: No Known Allergies (Unverified , 11/09/18) All Systems: reviewed and negative except above Subjective Patient ambulating in room and c/o cough Objective Last 24 Hour Vital Signs Date Time Temp Pulse Resp B/P (MAP) Pulse Ox O2 Delivery O2 Flow Rate FiO2 11/12/18 08:14 Nasal Cannula 2.0 11/12/18 08:00 98.2 70 18 95/57 (70) 94 11/12/18 07:47 93 Nasal Cannula 2.0 28 11/12/18 07:47 73 16 Nasal Cannula 2.0 28 11/12/18 07:47 Nasal Cannula 2.0 28 11/12/18 04:00 97.7 64 20 105/67 (80) 97 11/12/18 04:00 59 11/12/18 00:00 63 11/11/18 21:00 Nasal Cannula 2.0 11/11/18 20:43 70 99/77 11/11/18 20:30 75 18 Nasal Cannula 2.0 28 11/11/18 20:30 Nasal Cannula 2.0 28 11/11/18 20:30 95 Nasal Cannula 2.0 28 11/11/18 20:16 98.4 11/11/18 20:00 96.7 71 20 99/58 (72) 97 11/11/18 20:00 70 11/11/18 16:00 66 11/11/18 16:00 98.4 69 22 106/62 (77) 97 11/11/18 13:45 77 113/76 11/11/18 12:27 97.4 74 23 102/54 (70) 96 11/11/18 12:00 79 11/11/18 09:00 Nasal Cannula 2.0 Intake and Output 11/11/18 11/12/18 19:00 07:00 Intake Total 303.708 ml 476.292 ml Balance 303.708 ml 476.292 ml Intake Oral 120 ml IV Total 183.708 ml 476.292 ml # Voids 2 2 # Bowel Movements 2 1 Laboratory Tests 11/11/18 16:25: Urine Legionella Antigen [Pending] 11/12/18 05:15: White Blood Count 1.5*L, Red Blood Count 2.49L, Hemoglobin 8.0L, Hematocrit 24.8L, Mean Corpuscular Volume 99, Mean Corpuscular Hemoglobin 32.1H, Mean Corpuscular Hemoglobin Concent 32.4, Red Cell Distribution Width 18.1H, Platelet Count 48L, Mean Platelet Volume 11.3H, Neutrophils (%) (Auto) , Lymphocytes (%) (Auto) , Monocytes (%) (Auto) , Eosinophils (%) (Auto) , Basophils (%) (Auto) , Neutrophils % (Manual) [Pending], Lymphocytes % (Manual) [Pending], Platelet Estimate [Pending], Platelet Morphology [Pending], Sodium Level 137, Potassium Level 3.9, Chloride Level 103, Carbon Dioxide Level 25, Anion Gap 9, Blood Urea Nitrogen 46H, Creatinine 2.3H, Estimat Glomerular Filtration Rate 28.5, Glucose Level 83, Calcium Level 7.7L Height (Feet): 5 Height (Inches): 10.00 Weight (Pounds): 170 General Appearance: no apparent distress, alert EENT: normal ENT inspection Neck: normal alignment, supple Cardiovascular: normal rate, regular rhythm Respiratory/Chest: crackles/rales, rhonchi - bilaterally Abdomen: non tender, soft Edema: no edema noted Arm (L), no edema noted Arm (R), no edema noted Leg (L), no edema noted Leg (R), no edema noted Pedal (L), no edema noted Pedal (R), no edema noted Generalized Winston Tong MD Nov 12, 2018 08:56
[2018-11-12] MEDS: Labetalol 200mg tab ORAL SCH ×2 (09:00→21:00)
[2018-11-12] MEDS: REVLIMID 5 MG ORAL SCH ×2 (09:00→10:32)
[2018-11-12] MEDS: PARoxetine 20mg tab ORAL SCH (09:21)
--- NOTE | 2018-11-12 09:59 | Pulmonology Progress Note ---
Assessment/Plan Assessment/Plan 1. Pneumonia. 2. Multiple myeloma. 3. Chronic pain. 4. Hyperlipidemia. 5. Diabetes mellitus. 6. Hypertension. 7. History of alcohol abuse. 8. Gout. 9. Leukopenia DISCUSSION: Continue broad-spectrum antibiotics. 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 Seen by ID and nephrology Looking better but WBC 1.5; ? give neupogen Will discuss Subjective Interval Events: Annoyed at nursing staff; otherwise states he is well Constitutional: Reports: no symptoms HEENT: Repors: no symptoms Respiratory: Reports: no symptoms Cardiovascular: Reports: no symptoms Gastrointestinal/Abdominal: Reports: no symptoms Genitourinary: Reports: no symptoms Neurologic: Reports: no symptoms Allergies: Coded Allergies: No Known Allergies (Unverified , 11/09/18) Objective Last 24 Hour Vital Signs Date Time Temp Pulse Resp B/P (MAP) Pulse Ox O2 Delivery O2 Flow Rate FiO2 11/12/18 09:00 70 95/57 11/12/18 08:14 Nasal Cannula 2.0 11/12/18 08:00 98.2 70 18 95/57 (70) 94 11/12/18 07:47 93 Nasal Cannula 2.0 28 11/12/18 07:47 73 16 Nasal Cannula 2.0 28 11/12/18 07:47 Nasal Cannula 2.0 28 11/12/18 04:00 97.7 64 20 105/67 (80) 97 11/12/18 04:00 59 11/12/18 00:00 63 11/11/18 21:00 Nasal Cannula 2.0 11/11/18 20:43 70 99/77 11/11/18 20:30 75 18 Nasal Cannula 2.0 28 11/11/18 20:30 Nasal Cannula 2.0 28 11/11/18 20:30 95 Nasal Cannula 2.0 28 11/11/18 20:16 98.4 11/11/18 20:00 96.7 71 20 99/58 (72) 97 11/11/18 20:00 70 11/11/18 16:00 66 11/11/18 16:00 98.4 69 22 106/62 (77) 97 11/11/18 13:45 77 113/76 11/11/18 12:27 97.4 74 23 102/54 (70) 96 11/11/18 12:00 79 Intake and Output 11/11/18 11/12/18 19:00 07:00 Intake Total 303.708 ml 476.292 ml Balance 303.708 ml 476.292 ml Intake Oral 120 ml IV Total 183.708 ml 476.292 ml # Voids 2 2 # Bowel Movements 2 1 General Appearance: no acute distress HEENT: normocephalic Respiratory/Chest: chest wall non-tender, lungs clear Cardiovascular: normal peripheral pulses, normal rate Abdomen: normal bowel sounds, soft, non tender Microbiology Date/Time Source Procedure Growth Status 11/09/18 15:30 Blood Blood Culture - Preliminary NO GROWTH AFTER 48 HOURS Resulted 11/09/18 15:05 Blood Blood Culture - Preliminary NO GROWTH AFTER 48 HOURS Resulted 11/09/18 16:18 Nasal Nares Influenza Types A,B Antigen (REENA) - Final Complete Laboratory Tests 11/11/18 16:25: Urine Legionella Antigen [Pending] 11/12/18 05:15: White Blood Count 1.5*L, Red Blood Count 2.49L, Hemoglobin 8.0L, Hematocrit 24.8L, Mean Corpuscular Volume 99, Mean Corpuscular Hemoglobin 32.1H, Mean Corpuscular Hemoglobin Concent 32.4, Red Cell Distribution Width 18.1H, Platelet Count 48L, Mean Platelet Volume 11.3H, Neutrophils (%) (Auto) , Lymphocytes (%) (Auto) , Monocytes (%) (Auto) , Eosinophils (%) (Auto) , Basophils (%) (Auto) , Neutrophils % (Manual) [Pending], Lymphocytes % (Manual) [Pending], Platelet Estimate [Pending], Platelet Morphology [Pending], Sodium Level 137, Potassium Level 3.9, Chloride Level 103, Carbon Dioxide Level 25, Anion Gap 9, Blood Urea Nitrogen 46H, Creatinine 2.3H, Estimat Glomerular Filtration Rate 28.5, Glucose Level 83, Calcium Level 7.7L Current Medications Medications (Trade) Dose Ordered Sig/Jet Route PRN Reason Start Time Stop Time Status Last Admin Dose Admin Acetaminophen (Tylenol) 650 mg Q4H PRN ORAL Mild Pain (Pain Scale 1-3) 11/09/18 19:15 12/09/18 19:14 11/11/18 19:46 Albuterol/ Ipratropium (Albuterol/ Ipratropium) 3 ml Q4H PRN HHN Shortness of Breath 11/09/18 19:15 11/14/18 19:14 Allopurinol (Allopurinol) 300 mg DAILY ORAL 11/10/18 09:00 12/10/18 08:59 11/12/18 09:21 Azithromycin 500 mg/Dextrose 275 ml @ 275 mls/hr Q24HRS IV 11/09/18 21:00 11/15/18 21:59 11/11/18 21:34 Cefepime HCl 2 gm/ Sodium Chloride 110 ml @ 220 mls/hr QHS@2200 IVPB 11/11/18 22:00 11/17/18 20:59 11/11/18 21:57 Dextrose (Dextrose 50%) 25 ml Q30M PRN IV Hypoglycemia 11/09/18 19:15 12/09/18 19:14 Dextrose (Dextrose 50%) 50 ml Q30M PRN IV Hypoglycemia 11/09/18 19:15 12/09/18 19:14 Famotidine (Pepcid) 40 mg DAILY ORAL 11/10/18 09:00 12/10/18 08:59 11/12/18 09:22 Insulin Aspart (NovoLOG) BEFORE MEALS AND HS SUBQ 11/09/18 21:00 12/09/18 20:59 11/11/18 20:50 Insulin Detemir (Levemir) 23 units Q24H SUBQ 11/09/18 21:00 12/09/18 20:59 11/11/18 20:50 Labetalol HCl (Normodyne) 200 mg Q12HR ORAL 11/11/18 21:00 12/11/18 20:59 Levothyroxine Sodium (Synthroid) 25 mcg DAILY@0630 ORAL 11/10/18 06:30 12/10/18 06:29 11/12/18 05:32 Oseltamivir Phosphate (Tamiflu) 30 mg TWICE A DAY ORAL 11/10/18 18:00 11/15/18 17:59 11/12/18 09:22 Paroxetine HCl (Paxil) 40 mg DAILY ORAL 11/10/18 09:00 12/10/18 08:59 11/12/18 09:21 Patient Own Medication (Patient's Own Med) 1 ea DAILY ORAL 11/11/18 13:00 12/11/18 12:59 11/11/18 13:23 Sodium Chloride 1,000 ml @ 100 mls/hr Q10H IV 11/12/18 09:00 12/12/18 08:59 Tamsulosin HCl (Flomax) 0.4 mg BEDTIME ORAL 11/09/18 21:00 12/09/18 20:59 11/11/18 20:48 Vancomycin HCl (Vanco rx to dose) 1 ea DAILY PRN MISC Per rx protocol 11/10/18 17:30 12/10/18 17:29 Vancomycin HCl/ Dextrose 275 ml @ 183.708 mls/hr Q24H IVPB 11/12/18 18:30 11/15/18 18:29 Xu Marinelli MD Nov 12, 2018 09:59
[2018-11-12] MEDS ORDERED: Albuterol/Ipratropium 3ml neb HHN PRN (12:30)
[2018-11-12 12:40] VITALS: BP 103/53
--- NOTE | 2018-11-12 13:13 | NUR ---
HAND-OFF: Report given to Aj Mon in 4E room 417-1.
--- NOTE | 2018-11-12 14:36 | Infectious Diseases Prog Note ---
Assessment/Plan Assessment/Plan ASSESSMENT AND PLAN: 1. sepsis, pneumonia, fevers, leukopenia, neutropenia, tho, ? influenza infection/viral syndrome - - vancomycin, cefepime, azithromycin, tamiflu (11/10/18) - f/u on sputum culture, serology and chest x-ray - monitor labs, cr, wbc - clinically better, fevers better - watch creatinine closely - d/w RN at length about patient care 2. The patient has pancytopenia and history of multiple myeloma. The patient is immunocompromised. Continue treatment per primary and consultants. Await hematology/oncology evaluation - consider neupogen for leukopenia, communicated with Dr. Marinelli. 3. Acute kidney, elevated creatinine, chronic renal failure - watch cr closely, nephrology f/u 4. History of diabetes. 5. Hypertension. 6. Blood sugar and blood pressure treatment for diabetes and hypertension per primary. 7. Hyperlipidemia. 8. Congestive heart failure, treatment per Cardiology. 9. Hypothyroidism. 10. Chronic pain syndrome. 11. History of gout. 12. History of alcohol abuse in the past. 13. Anemia, leukopenia, and thrombocytopenia. 14. Hypoxia. 15. CHF, treatment per cardiac consultants. 16. Social history currently is negative. 17. Family history is noncontributory. 18. MAR was noted. 19. Case was discussed with RN. 20. No known drug allergies. 21. Continue treatment per Dr. Marinelli and consultants. 22. Notes and records were noted. 23. Orders were entered. Subjective Constitutional: Denies: fever HEENT: Denies: congestion Respiratory: Denies: shortness of breath Cardiovascular: Denies: chest pain Gastrointestinal/Abdominal: Denies: nausea, vomiting, diarrhea Genitourinary: Denies: dysuria, hematuria Neurologic: Denies: headache, weakness Psychiatric: Denies: depression Skin: Denies: rash Hematologic: Denies: bleeding Musculoskeletal: Denies: pain Allergies: Coded Allergies: No Known Allergies (Unverified , 11/09/18) Objective Vital Signs Last 24 Hour Vital Signs Date Time Temp Pulse Resp B/P (MAP) Pulse Ox O2 Delivery O2 Flow Rate FiO2 11/12/18 12:40 98.1 76 19 103/53 (70) 93 11/12/18 09:00 70 95/57 11/12/18 08:14 Nasal Cannula 2.0 11/12/18 08:00 98.2 70 18 95/57 (70) 94 11/12/18 07:47 93 Nasal Cannula 2.0 28 11/12/18 07:47 73 16 Nasal Cannula 2.0 28 11/12/18 07:47 Nasal Cannula 2.0 28 11/12/18 04:00 97.7 64 20 105/67 (80) 97 11/12/18 04:00 59 11/12/18 00:00 63 11/11/18 21:00 Nasal Cannula 2.0 11/11/18 20:43 70 99/77 11/11/18 20:30 75 18 Nasal Cannula 2.0 28 11/11/18 20:30 Nasal Cannula 2.0 28 11/11/18 20:30 95 Nasal Cannula 2.0 28 11/11/18 20:16 98.4 11/11/18 20:00 96.7 71 20 99/58 (72) 97 11/11/18 20:00 70 11/11/18 16:00 66 11/11/18 16:00 98.4 69 22 106/62 (77) 97 Height (Feet): 5 Height (Inches): 10.00 Weight (Pounds): 170 General Appearance: no acute distress HEENT: normocephalic, atraumatic, anicteric, mucous membranes moist Respiratory/Chest: crackles/rales, rhonchi - bilaterally Cardiovascular: normal rate, regular rhythm Abdomen: normal bowel sounds, soft, non tender, no organomegaly, non distended Genitourinary: other - no [place], no cva pain Extremities: no cyanosis Skin: no rash Neurologic/Psychiatric: examination proctor II-XII grossly normal, alert, oriented x 3, other - no focal weakness Lymphatic: no neck adenopathy Musculoskeletal: no effusion Objective Chest x-ray - 11/11/18 - Comparison: 11/09/2018 Findings: Body habitus limits evaluation. Patient is rotated to the right. Allowing for differences in exposure technique, probably unchanged right upper lobe infiltrate and generalized interstitial edema. The heart is massively enlarged. Impression: Unchanged, over 2 days, findings as above. Microbiology Date/Time Source Procedure Growth Status 11/09/18 15:30 Blood Blood Culture - Preliminary NO GROWTH AFTER 48 HOURS Resulted 11/09/18 16:18 Nasal Nares Influenza Types A,B Antigen (REENA) - Final Complete Microbiology Date/Time Source Procedure Growth Status 11/09/18 15:30 Blood Blood Culture - Preliminary NO GROWTH AFTER 48 HOURS Resulted 11/09/18 15:05 Blood Blood Culture - Preliminary NO GROWTH AFTER 48 HOURS Resulted 11/09/18 16:18 Nasal Nares Influenza Types A,B Antigen (REENA) - Final Complete Laboratory Tests Test 11/11/18 16:25 11/12/18 05:15 Urine Legionella Antigen Pending White Blood Count 1.5 K/UL (4.8-10.8) *L Red Blood Count 2.49 M/UL (4.70-6.10) L Hemoglobin 8.0 G/DL (14.2-18.0) L Hematocrit 24.8 % (42.0-52.0) L Mean Corpuscular Volume 99 FL (80-99) Mean Corpuscular Hemoglobin 32.1 PG (27.0-31.0) H Mean Corpuscular Hemoglobin Concent 32.4 G/DL (32.0-36.0) Red Cell Distribution Width 18.1 % (11.6-14.8) H Platelet Count 48 K/UL (150-450) L Mean Platelet Volume 11.3 FL (6.5-10.1) H Neutrophils (%) (Auto) % (45.0-75.0) Lymphocytes (%) (Auto) % (20.0-45.0) Monocytes (%) (Auto) % (1.0-10.0) Eosinophils (%) (Auto) % (0.0-3.0) Basophils (%) (Auto) % (0.0-2.0) Differential Total Cells Counted 100 Neutrophils % (Manual) 43 % (45-75) L Lymphocytes % (Manual) 48 % (20-45) H Monocytes % (Manual) 4 % (1-10) Eosinophils % (Manual) 5 % (0-3) H Basophils % (Manual) 0 % (0-2) Band Neutrophils 0 % (0-8) Platelet Estimate Decreased L Platelet Morphology Normal Anisocytosis 1+ Sodium Level 137 MMOL/L (136-145) Potassium Level 3.9 MMOL/L (3.5-5.1) Chloride Level 103 MMOL/L (98-107) Carbon Dioxide Level 25 MMOL/L (21-32) Anion Gap 9 mmol/L (5-15) Blood Urea Nitrogen 46 mg/dL (7-18) H Creatinine 2.3 MG/DL (0.55-1.30) H Estimat Glomerular Filtration Rate 28.5 mL/min (>60) Glucose Level 83 MG/DL (74-106) Calcium Level 7.7 MG/DL (8.5-10.1) L Current Medications Medications (Trade) Dose Ordered Sig/Jet Route PRN Reason Start Time Stop Time Status Last Admin Dose Admin Acetaminophen (Tylenol) 650 mg Q4H PRN ORAL Mild Pain (Pain Scale 1-3) 11/12/18 12:30 12/09/18 12:29 Albuterol/ Ipratropium (Albuterol/ Ipratropium) 3 ml Q4H PRN HHN Shortness of Breath 11/12/18 12:30 11/14/18 12:29 Allopurinol (Allopurinol) 300 mg DAILY ORAL 11/13/18 09:00 12/10/18 08:59 Azithromycin 500 mg/Dextrose 275 ml @ 275 mls/hr Q24HRS IV 11/12/18 21:00 11/15/18 21:59 Cefepime HCl 2 gm/ Sodium Chloride 110 ml @ 220 mls/hr Q24H IVPB 11/12/18 22:00 11/19/18 21:59 Dextrose (Dextrose 50%) 25 ml Q30M PRN IV Hypoglycemia 11/12/18 12:30 12/09/18 12:29 Dextrose (Dextrose 50%) 50 ml Q30M PRN IV Hypoglycemia 11/12/18 12:30 12/09/18 12:29 Famotidine (Pepcid) 40 mg DAILY ORAL 11/13/18 09:00 12/10/18 08:59 Insulin Aspart (NovoLOG) BEFORE MEALS AND HS SUBQ 11/12/18 16:30 12/09/18 20:59 Insulin Detemir (Levemir) 23 units Q24H SUBQ 11/12/18 21:00 12/09/18 20:59 Labetalol HCl (Normodyne) 200 mg Q12HR ORAL 11/12/18 21:00 12/11/18 20:59 Levothyroxine Sodium (Synthroid) 25 mcg DAILY@0630 ORAL 11/13/18 06:30 12/10/18 06:29 Oseltamivir Phosphate (Tamiflu) 30 mg TWICE A DAY ORAL 11/12/18 18:00 11/15/18 17:59 Paroxetine HCl (Paxil) 40 mg DAILY ORAL 11/13/18 09:00 12/10/18 08:59 Patient Own Medication (Patient's Own Med) 1 ea DAILY ORAL 11/13/18 09:00 12/11/18 12:59 Sodium Chloride 1,000 ml @ 100 mls/hr Q10H IV 11/12/18 12:30 12/12/18 12:29 11/12/18 14:08 Tamsulosin HCl (Flomax) 0.4 mg BEDTIME ORAL 11/12/18 21:00 12/09/18 20:59 Vancomycin HCl (Vanco rx to dose) 1 ea DAILY PRN MISC Per rx protocol 11/12/18 12:30 12/12/18 12:29 Vancomycin HCl/ Dextrose 275 ml @ 183.708 mls/hr Q24H IVPB 11/12/18 18:30 11/15/18 18:29 Ino Duncan MD Nov 12, 2018 14:36
[2018-11-12 16:00] VITALS: BP 98/58
--- NOTE | 2018-11-12 16:50 | NUR ---
NURSE NOTES: Received pt from STEPHANIE RODRIGUEZ AT 1230 from TELE. Pt is alert and orient x4. pt has NC 2LMP. pt's is on bed side.pt didn't have iv access when admit in unit. inserted iv access L wrist 22g is running well. pt is in neutropenic isolation. Dr Mckinnon visited pt and he is aware about WBC. sputum culture collected and sent to lab. all needs attended, bed is locked and is in the lowest position. call light within easy reach. will continue to monitor. Addendum: 11/13/18 at 0713 by Bernabe Becerra RN pt has a dry wound on his L elbow, I covered with Optifoam.
--- NOTE | 2018-11-12 17:50 | General Progress Note ---
Assessment/Plan Assessment/Plan (1) Opioid dependency Patient denies taking the Suboxone I d/w him the adverse reaction abruptly stopping the medication. We will start Ativan 1mg PO Q6H PRN for agitation. D/w Dr. Duran and he concurred. Subjective Date patient seen: Nov 12, 2018 Time patient seen: 04:45 - pm Constitutional: Reports: no symptoms HEENT: Reports: no symptoms Cardiovascular: Reports: no symptoms Respiratory: Reports: no symptoms Gastrointestinal/Abdominal: Reports: no symptoms Genitourinary: Reports: no symptoms Neurologic/Psychiatric: Reports: no symptoms Endocrine: Reports: no symptoms Hematologic/Lymphatic: Reports: no symptoms Allergies: Coded Allergies: No Known Allergies (Unverified , 11/09/18) Subjective Patient is in bed with daughter at bedside. He now denies taking Suboxone and says he does not remember. I reviewed the [facility] PDMP again and printed out the report and placed it in the chart. I also tried to contact Dr. Pam Riggins at [phone] to discuss patient condition and treatment. I d/w patient the reactions of abruptly stopping the medication however he continues to deny taking it. Objective Last 24 Hour Vital Signs Date Time Temp Pulse Resp B/P (MAP) Pulse Ox O2 Delivery O2 Flow Rate FiO2 11/12/18 16:00 98.9 69 19 98/58 (71) 94 11/12/18 12:40 98.1 76 19 103/53 (70) 93 11/12/18 09:00 70 95/57 11/12/18 08:14 Nasal Cannula 2.0 11/12/18 08:00 98.2 70 18 95/57 (70) 94 11/12/18 07:47 93 Nasal Cannula 2.0 28 11/12/18 07:47 73 16 Nasal Cannula 2.0 28 11/12/18 07:47 Nasal Cannula 2.0 28 11/12/18 04:00 97.7 64 20 105/67 (80) 97 11/12/18 04:00 59 11/12/18 00:00 63 11/11/18 21:00 Nasal Cannula 2.0 11/11/18 20:43 70 99/77 11/11/18 20:30 75 18 Nasal Cannula 2.0 28 11/11/18 20:30 Nasal Cannula 2.0 28 11/11/18 20:30 95 Nasal Cannula 2.0 28 11/11/18 20:16 98.4 11/11/18 20:00 96.7 71 20 99/58 (72) 97 11/11/18 20:00 70 Intake and Output 11/11/18 11/12/18 19:00 07:00 Intake Total 303.708 ml 476.292 ml Balance 303.708 ml 476.292 ml Intake Oral 120 ml IV Total 183.708 ml 476.292 ml # Voids 2 2 # Bowel Movements 2 1 Laboratory Tests 11/12/18 05:15: White Blood Count 1.5*L, Red Blood Count 2.49L, Hemoglobin 8.0L, Hematocrit 24.8L, Mean Corpuscular Volume 99, Mean Corpuscular Hemoglobin 32.1H, Mean Corpuscular Hemoglobin Concent 32.4, Red Cell Distribution Width 18.1H, Platelet Count 48L, Mean Platelet Volume 11.3H, Neutrophils (%) (Auto) , Lymphocytes (%) (Auto) , Monocytes (%) (Auto) , Eosinophils (%) (Auto) , Basophils (%) (Auto) , Differential Total Cells Counted 100, Neutrophils % ( Manual) 43L, Lymphocytes % (Manual) 48H, Monocytes % (Manual) 4, Eosinophils % ( Manual) 5H, Basophils % (Manual) 0, Band Neutrophils 0, Platelet Estimate DecreasedL, Platelet Morphology Normal, Anisocytosis 1+, Sodium Level 137, Potassium Level 3.9, Chloride Level 103, Carbon Dioxide Level 25, Anion Gap 9, Blood Urea Nitrogen 46H, Creatinine 2.3H, Estimat Glomerular Filtration Rate 28.5, Glucose Level 83, Calcium Level 7.7L 11/12/18 17:35: Vancomycin Level Trough [Pending] Height (Feet): 5 Height (Inches): 10.00 Weight (Pounds): 170 General Appearance: no apparent distress, alert EENT: PERRL/EOMI, normal ENT inspection Neck: non-tender, normal alignment Cardiovascular: normal rate, regular rhythm Respiratory/Chest: lungs clear, normal breath sounds Abdomen: non tender, soft Extremities: non-tender Edema: trace edema Neurologic: alert, responsive Skin: warm/dry Alonso Mariscal Nov 12, 2018 17:50
[2018-11-12] MEDS ORDERED: LORazepam 1mg tab ORAL PRN (18:00)
[2018-11-12] MEDS ORDERED: Vancomycin 1.25gm Premix 275 ML IVPB SCH ×2 (18:30)
--- NOTE | 2018-11-12 19:32 | NUR ---
HAND-OFF: Report given to STEPHANIE COULTER.
--- NOTE | 2018-11-12 19:36 | NUR ---
NURSE NOTES: Received patient from am shift, patient is awake, alert, oriented, sitting in the chair, no acute distress noted, call light is within reach, bed is in lowest position, locked and alarm is on. patient is able to make his needs known, ambulatory. Will continue to monitor for safety and comfort.
[2018-11-12 20:00] VITALS: BP 107/56
[2018-11-12] MEDS: Tamsulosin 0.4mg cap ORAL SCH (21:07)
[2018-11-12] MEDS: Azithromycin 500 MG in D5W 275 ML IV SCH ×2 (21:17)
[2018-11-12] MEDS: Levemir Flexpen SUBQ SCH (21:31)
[2018-11-12 22:02] VITALS: BP 107/65
--- NOTE | 2018-11-12 22:14 | NUR ---
NURSE NOTES: Called pharmacy and spoke with tech about using a RICKIE label for Azithromax IVPB due at 2100. Per Tech it was ok to use the old label.
[2018-11-12] MEDS: Cefepime HCl 2 GM in NS 110 ML IVPB SCH (23:10)
[2018-11-13] VITALS: BP 124/87
[2018-11-13 04:31] VITALS: BP 118/78
[2018-11-13] MEDS: Levothyroxine 25mcg tab ORAL SCH (06:13)
[2018-11-13] MEDS: NovoLOG Insulin Flexpen SUBQ SCH ×4 (06:14→22:48)
--- NOTE | 2018-11-13 06:29 | NUR ---
NURSE NOTES: Patient pulled his IV, multiple attempts were implemented to try to re insert IV, unsuccessfully. Patient became upset and agitated, stated he doesn't want to be bothered. CN was made aware, will let am shift nurse know as well.
--- NOTE | 2018-11-13 06:46 | NUR ---
HAND-OFF: Report given to Bernabe BROWN.
[2018-11-13 06:54] LABS: HEMATOCRIT 21.5 % (42.0-52.0); HEMOGLOBIN 7.1 G/DL (14.2-18.0); MEAN CORPUSCULAR VOLUME 98 FL (80-99); PLATELET COUNT 49 K/UL (150-450); RED BLOOD COUNT 2.19 M/UL (4.70-6.10); RED CELL DISTRIBUTION WIDTH 17.1 % (11.6-14.8)
[2018-11-13 06:59] LABS: ANION GAP 11 mmol/L (5-15); BLOOD UREA NITROGEN 46 mg/dL (7-18); CALCIUM 7.8 MG/DL (8.5-10.1); CARBON DIOXIDE 25 MMOL/L (21-32); CHLORIDE 103 MMOL/L (98-107); POTASSIUM 3.8 MMOL/L (3.5-5.1); SODIUM 139 MMOL/L (136-145)
[2018-11-13 07:00] LABS: WHITE BLOOD COUNT 1.3 K/UL (4.8-10.8)
--- NOTE | 2018-11-13 07:04 | NUR ---
NURSE NOTES: Notified MD of lab results WBC 1.3, no new orders at this time.
--- NOTE | 2018-11-13 07:25 | NUR ---
NURSE NOTES: Receive pt from STEPHANIE COULTER. Pt is alert and orient x4. pt has NC 2LMP. No complain of pain at this moment. all needs attended, bed is locked and is in the lowest position, call light within easy reach. will continue to monitor.
[2018-11-13 08:00] VITALS: BP 121/69
--- NOTE | 2018-11-13 08:10 | Nephrology Progress Note ---
Assessment/Plan Assessment/Plan A/P 1) XAVI on CKD 3B- Cr improved to 2. Hold BP meds if SBP <110 - due to sepsis/hypotension and volume depletion 2) Hypotension- hold BP medications if SBP <110 3) Hyponatremia- resolved 4) Sepsis- leukopenia/PNA- per ID . Monitor Vanc level 5) MM- s/p bone marrow tx 2 years ago. Per ONC Subjective Date patient seen: Nov 13, 2018 Time patient seen: 08:08 ROS Limited/Unobtainable: No Allergies: Coded Allergies: No Known Allergies (Unverified , 11/09/18) Subjective Patient agitated and upset Objective Last 24 Hour Vital Signs Date Time Temp Pulse Resp B/P (MAP) Pulse Ox O2 Delivery O2 Flow Rate FiO2 11/13/18 04:31 97.8 88 20 118/78 (91) 11/13/18 00:00 98.0 85 20 124/87 (99) 11/12/18 22:13 Nasal Cannula 2.0 28 11/12/18 22:12 94 Nasal Cannula 2.0 28 11/12/18 22:12 84 18 Nasal Cannula 2.0 28 11/12/18 22:06 Nasal Cannula 2.0 11/12/18 22:02 97.8 87 107/65 (79) 11/12/18 21:00 70 107/56 11/12/18 20:00 97.0 87 18 107/56 (73) 11/12/18 16:00 98.9 69 19 98/58 (71) 94 11/12/18 12:40 98.1 76 19 103/53 (70) 93 11/12/18 09:00 70 95/57 11/12/18 08:14 Nasal Cannula 2.0 Intake and Output 11/12/18 11/13/18 19:00 07:00 Intake Total 823.708 ml 800 ml Balance 823.708 ml 800 ml Intake Oral 240 ml IV Total 583.708 ml 600 ml Other 200 ml # Voids 2 2 # Bowel Movements 2 1 Laboratory Tests 11/12/18 17:35: Vancomycin Level Trough 12.8H 11/13/18 06:19: White Blood Count 1.3*L, Red Blood Count 2.19L, Hemoglobin 7.1L, Hematocrit 21.5L, Mean Corpuscular Volume 98, Mean Corpuscular Hemoglobin 32.6H, Mean Corpuscular Hemoglobin Concent 33.2, Red Cell Distribution Width 17.1H, Platelet Count 49L, Mean Platelet Volume 8.7, Neutrophils (%) (Auto) , Lymphocytes (%) (Auto) , Monocytes (%) (Auto) , Eosinophils (%) (Auto) , Basophils (%) (Auto) , Neutrophils % (Manual) [Pending], Lymphocytes % (Manual) [Pending], Platelet Estimate [Pending], Platelet Morphology [Pending], Sodium Level 139, Potassium Level 3.8, Chloride Level 103, Carbon Dioxide Level 25, Anion Gap 11, Blood Urea Nitrogen 46H, Creatinine 2.0H, Estimat Glomerular Filtration Rate 33.5, Glucose Level 157H, Calcium Level 7.8L Height (Feet): 5 Height (Inches): 10.00 Weight (Pounds): 170 General Appearance: no apparent distress, alert EENT: normal ENT inspection Neck: normal alignment, supple Cardiovascular: normal rate, regular rhythm Respiratory/Chest: crackles/rales, rhonchi - bilaterally Abdomen: non tender, soft Edema: no edema noted Arm (L), no edema noted Arm (R), no edema noted Leg (L), no edema noted Leg (R), no edema noted Pedal (L), no edema noted Pedal (R), no edema noted Generalized Winston Tong MD Nov 13, 2018 08:10
[2018-11-13] MEDS: PARoxetine 20mg tab ORAL SCH (08:30)
[2018-11-13] MEDS: Labetalol 200mg tab ORAL SCH ×2 (08:30→22:25)
[2018-11-13] MEDS ORDERED: REVLIMID 5 MG ORAL SCH (09:00)
--- NOTE | 2018-11-13 09:11 | NUR ---
RADIOLOGY DEPT CHEST X-RAY DONE.-P.DYE
--- NOTE | 2018-11-13 09:26 | General Progress Note ---
Assessment/Plan Assessment/Plan (1) Opioid dependency We will continue Ativan as needed D/w Dr. Duran and he concurred. Subjective Date patient seen: Nov 13, 2018 Time patient seen: 08:00 - am Constitutional: Reports: no symptoms HEENT: Reports: no symptoms Cardiovascular: Reports: no symptoms Respiratory: Reports: no symptoms Gastrointestinal/Abdominal: Reports: no symptoms Genitourinary: Reports: no symptoms Neurologic/Psychiatric: Reports: no symptoms Endocrine: Reports: no symptoms Hematologic/Lymphatic: Reports: no symptoms Allergies: Coded Allergies: No Known Allergies (Unverified , 11/09/18) Subjective Patient has no signs of pain or distress. He has no new complaints at this time. Objective Last 24 Hour Vital Signs Date Time Temp Pulse Resp B/P (MAP) Pulse Ox O2 Delivery O2 Flow Rate FiO2 11/13/18 08:30 65 121/69 11/13/18 08:00 97.9 65 19 121/69 (86) 95 11/13/18 04:31 97.8 88 20 118/78 (91) 11/13/18 00:00 98.0 85 20 124/87 (99) 11/12/18 22:13 Nasal Cannula 2.0 28 11/12/18 22:12 94 Nasal Cannula 2.0 28 11/12/18 22:12 84 18 Nasal Cannula 2.0 28 11/12/18 22:06 Nasal Cannula 2.0 11/12/18 22:02 97.8 87 107/65 (79) 11/12/18 21:00 70 107/56 11/12/18 20:00 97.0 87 18 107/56 (73) 11/12/18 16:00 98.9 69 19 98/58 (71) 94 11/12/18 12:40 98.1 76 19 103/53 (70) 93 Intake and Output 11/12/18 11/13/18 19:00 07:00 Intake Total 823.708 ml 800 ml Balance 823.708 ml 800 ml Intake Oral 240 ml IV Total 583.708 ml 600 ml Other 200 ml # Voids 2 2 # Bowel Movements 2 1 Laboratory Tests 11/12/18 17:35: Vancomycin Level Trough 12.8H 11/13/18 06:19: White Blood Count 1.3*L, Red Blood Count 2.19L, Hemoglobin 7.1L, Hematocrit 21.5L, Mean Corpuscular Volume 98, Mean Corpuscular Hemoglobin 32.6H, Mean Corpuscular Hemoglobin Concent 33.2, Red Cell Distribution Width 17.1H, Platelet Count 49L, Mean Platelet Volume 8.7, Neutrophils (%) (Auto) , Lymphocytes (%) (Auto) , Monocytes (%) (Auto) , Eosinophils (%) (Auto) , Basophils (%) (Auto) , Neutrophils % (Manual) [Pending], Lymphocytes % (Manual) [Pending], Platelet Estimate [Pending], Platelet Morphology [Pending], Sodium Level 139, Potassium Level 3.8, Chloride Level 103, Carbon Dioxide Level 25, Anion Gap 11, Blood Urea Nitrogen 46H, Creatinine 2.0H, Estimat Glomerular Filtration Rate 33.5, Glucose Level 157H, Calcium Level 7.8L Height (Feet): 5 Height (Inches): 10.00 Weight (Pounds): 170 General Appearance: no apparent distress, alert EENT: PERRL/EOMI, normal ENT inspection Neck: non-tender, normal alignment Cardiovascular: normal rate, regular rhythm Respiratory/Chest: decreased breath sounds Abdomen: non tender, soft Extremities: non-tender Edema: no edema noted Arm (L), no edema noted Arm (R), no edema noted Leg (L), no edema noted Leg (R), no edema noted Pedal (L), no edema noted Pedal (R), no edema noted Generalized Neurologic: alert, responsive Skin: normal pigmentation Alonso Mariscal Nov 13, 2018 09:26
--- NOTE | 2018-11-13 10:00 | NUR ---
NURSE NOTES: Dr gonzalez visited pt, he is aeare about WBC and HB and other lab results, all orders noted and carried out, will continue to monitor. Addendum: 11/13/18 at 1003 by Bernabe Becerra RN ERROR Dr aware about WBC and HB and other lab results.
--- NOTE | 2018-11-13 10:13 | Diagnostic Imaging Report ---
Indication: Shortness of breath Technique: One view of the chest Comparison: 11/11/2018 Findings: Heart is enlarged. There is bilateral interstitial and airspace edema. This appears slightly worse than on the prior exam. And pleural spaces are clear Impression: Cardiomegaly Slightly worsening interstitial edema, over 2 days
[2018-11-13] MEDS: TBO-Filgrastim 480 mcg/0.8ml SQ NR (11:01)
[2018-11-13 12:00] VITALS: BP 110/57
[2018-11-13] MEDS ORDERED: TBO-Filgrastim 300 mcg/0.5ml SQ SCH (12:00)
--- NOTE | 2018-11-13 15:49 | Pulmonology Progress Note ---
Assessment/Plan Assessment/Plan 1. Pneumonia. 2. Multiple myeloma. 3. Chronic pain. 4. Hyperlipidemia. 5. Diabetes mellitus. 6. Hypertension. 7. History of alcohol abuse. 8. Gout. 9. Leukopenia DISCUSSION: Continue broad-spectrum antibiotics. 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 Seen by ID and nephrology Looking better but WBC 1.5; received neupogen per oncology Will discuss Subjective Interval Events: Looking better; received Neupogen Constitutional: Reports: no symptoms HEENT: Repors: no symptoms Respiratory: Reports: no symptoms Cardiovascular: Reports: no symptoms Gastrointestinal/Abdominal: Reports: no symptoms Genitourinary: Reports: no symptoms Neurologic: Reports: no symptoms Allergies: Coded Allergies: No Known Allergies (Unverified , 11/09/18) Objective Last 24 Hour Vital Signs Date Time Temp Pulse Resp B/P (MAP) Pulse Ox O2 Delivery O2 Flow Rate FiO2 11/13/18 12:00 96.0 64 19 110/57 (74) 94 11/13/18 09:00 Nasal Cannula 2.0 11/13/18 08:30 65 121/69 11/13/18 08:00 97.9 65 19 121/69 (86) 95 11/13/18 04:31 97.8 88 20 118/78 (91) 11/13/18 00:00 98.0 85 20 124/87 (99) 11/12/18 22:13 Nasal Cannula 2.0 28 11/12/18 22:12 94 Nasal Cannula 2.0 28 11/12/18 22:12 84 18 Nasal Cannula 2.0 28 11/12/18 22:06 Nasal Cannula 2.0 11/12/18 22:02 97.8 87 107/65 (79) 11/12/18 21:00 70 107/56 11/12/18 20:00 97.0 87 18 107/56 (73) 11/12/18 16:00 98.9 69 19 98/58 (71) 94 Intake and Output 11/12/18 11/13/18 19:00 07:00 Intake Total 823.708 ml 800 ml Balance 823.708 ml 800 ml Intake Oral 240 ml IV Total 583.708 ml 600 ml Other 200 ml # Voids 2 2 # Bowel Movements 2 1 General Appearance: no acute distress HEENT: normocephalic Respiratory/Chest: chest wall non-tender, lungs clear Cardiovascular: normal peripheral pulses, normal rate Abdomen: normal bowel sounds, soft, non tender Extremities: no cyanosis Microbiology Date/Time Source Procedure Growth Status 11/12/18 14:35 Sputum Induced Gram Stain - Final Resulted 11/12/18 14:35 Sputum Induced Sputum Culture - Preliminary NO GROWTH Resulted Laboratory Tests 11/12/18 17:35: Vancomycin Level Trough 12.8H 11/13/18 06:19: White Blood Count 1.3*L, Red Blood Count 2.19L, Hemoglobin 7.1L, Hematocrit 21.5L, Mean Corpuscular Volume 98, Mean Corpuscular Hemoglobin 32.6H, Mean Corpuscular Hemoglobin Concent 33.2, Red Cell Distribution Width 17.1H, Platelet Count 49L, Mean Platelet Volume 8.7, Neutrophils (%) (Auto) , Lymphocytes (%) (Auto) , Monocytes (%) (Auto) , Eosinophils (%) (Auto) , Basophils (%) (Auto) , Differential Total Cells Counted 100, Neutrophils % ( Manual) 50, Lymphocytes % (Manual) 37, Monocytes % (Manual) 7, Eosinophils % ( Manual) 5H, Basophils % (Manual) 0, Band Neutrophils 1, Platelet Estimate DecreasedL, Platelet Morphology Normal, Anisocytosis 1+, Sodium Level 139, Potassium Level 3.8, Chloride Level 103, Carbon Dioxide Level 25, Anion Gap 11, Blood Urea Nitrogen 46H, Creatinine 2.0H, Estimat Glomerular Filtration Rate 33.5, Glucose Level 157H, Calcium Level 7.8L Current Medications Medications (Trade) Dose Ordered Sig/Jet Route PRN Reason Start Time Stop Time Status Last Admin Dose Admin Acetaminophen (Tylenol) 650 mg Q4H PRN ORAL Mild Pain (Pain Scale 1-3) 11/12/18 12:30 12/09/18 12:29 Albuterol/ Ipratropium (Albuterol/ Ipratropium) 3 ml Q4H PRN HHN Shortness of Breath 11/12/18 12:30 11/14/18 12:29 Allopurinol (Allopurinol) 300 mg DAILY ORAL 11/13/18 09:00 12/10/18 08:59 11/13/18 08:30 Azithromycin 500 mg/Dextrose 275 ml @ 275 mls/hr Q24HRS IV 11/12/18 21:00 11/15/18 21:59 11/12/18 21:17 Cefepime HCl 2 gm/ Sodium Chloride 110 ml @ 220 mls/hr Q24H IVPB 11/12/18 22:00 11/19/18 21:59 11/12/18 23:10 Dextrose (Dextrose 50%) 25 ml Q30M PRN IV Hypoglycemia 11/12/18 12:30 12/09/18 12:29 Dextrose (Dextrose 50%) 50 ml Q30M PRN IV Hypoglycemia 11/12/18 12:30 12/09/18 12:29 Famotidine (Pepcid) 40 mg DAILY ORAL 11/13/18 09:00 12/10/18 08:59 11/13/18 08:29 Insulin Aspart (NovoLOG) BEFORE MEALS AND HS SUBQ 11/12/18 16:30 12/09/18 20:59 11/13/18 06:14 Insulin Detemir (Levemir) 23 units Q24H SUBQ 11/12/18 21:00 12/09/18 20:59 11/12/18 21:31 Labetalol HCl (Normodyne) 200 mg Q12HR ORAL 11/12/18 21:00 12/11/18 20:59 11/13/18 08:30 Levothyroxine Sodium (Synthroid) 25 mcg DAILY@0630 ORAL 11/13/18 06:30 12/10/18 06:29 11/13/18 06:13 Lorazepam (Ativan) 1 mg Q6H PRN ORAL For Agitation 11/12/18 18:00 11/19/18 17:59 11/13/18 08:30 Oseltamivir Phosphate (Tamiflu) 30 mg TWICE A DAY ORAL 11/12/18 18:00 11/15/18 17:59 11/13/18 08:31 Paroxetine HCl (Paxil) 40 mg DAILY ORAL 11/13/18 09:00 12/10/18 08:59 11/13/18 08:30 Patient Own Medication (Patient's Own Med) 1 ea DAILY ORAL 11/13/18 09:00 12/11/18 12:59 11/13/18 08:30 Sodium Chloride 1,000 ml @ 100 mls/hr Q10H IV 11/12/18 12:30 12/12/18 12:29 11/13/18 08:31 Tamsulosin HCl (Flomax) 0.4 mg BEDTIME ORAL 11/12/18 21:00 12/09/18 20:59 11/12/18 21:07 Tbo-Filgrastim (Granix) 480 mcg BIOTEC SQ 11/13/18 12:00 12/13/18 11:59 11/13/18 11:01 Vancomycin HCl (Vanco rx to dose) 1 ea DAILY PRN MISC Per rx protocol 11/12/18 12:30 12/12/18 12:29 Vancomycin HCl/ Dextrose 275 ml @ 137.5 mls/ hr Q24H IVPB 11/13/18 18:30 11/18/18 18:29 Xu Marinelli MD Nov 13, 2018 15:49
[2018-11-13 16:00] VITALS: BP 123/92
[2018-11-13] MEDS ORDERED: Vancomycin 1.5gm Premix IVPB SCH (18:30)
--- NOTE | 2018-11-13 19:36 | NUR ---
HAND-OFF: Report given to STEPHANIE RASHID.
--- NOTE | 2018-11-13 19:40 | NUR ---
NURSE NOTES: Received report from STEPHANIE Kidd. Patient A&Ox4, Cypriot and Grenadian speaking. On nasal cannula 2L/min. No signs of distress or labored breathing. Bed in lowest position with call light in reach. Will continue to monitor.
[2018-11-13 20:00] VITALS: BP 133/86
[2018-11-13] MEDS: Tamsulosin 0.4mg cap ORAL SCH (22:24)
[2018-11-13] MEDS: Azithromycin 500 MG in D5W 275 ML IV SCH (22:26)
[2018-11-13] MEDS: Levemir Flexpen SUBQ SCH (22:48)
--- NOTE | 2018-11-13 23:46 | Consultation ---
DATE OF CONSULTATION: 11/13/2018 NOTE: POOR AUDIO. HEMATOLOGY/ONCOLOGY CONSULTATION: CONSULTING PHYSICIAN: Jessica Brown M.D. REFERRING PHYSICIAN: Xu Marinelli M.D. REASON FOR CONSULTATION: History of multiple myeloma currently with pancytopenia. HISTORY OF PRESENT ILLNESS: The patient is a 67-year-old gentleman with history of multiple myeloma, status post extensive course of chemotherapy and bone marrow transplantation at [facility]. The patient currently is on maintenance Revlimid. The patient's full oncologic treatment is not available to me at this point in time. The patient has residual significant fevers. He has been diagnosed with pneumonia as well as possible influenza, being treated accordingly. The patient has been hypotensive and has renal insufficiency. Does have a history of chronic headaches, history of alcohol abuse, apparently diabetes, glaucoma, gout, multiple myeloma, hypertension, post extensive chemotherapy and bone marrow transplantation. PAST MEDICAL HISTORY: As above. PAST SURGICAL HISTORY: The patient is status post central lines in the past. Does not recall any history of surgeries. FAMILY HISTORY: The patient does not recall any history of cancers. REVIEW OF SYSTEMS: NEUROLOGIC: The patient has no focal weakness or numbness. SKIN: The patient denies any bruising or petechiae. PSYCHIATRIC: The patient is somewhat agitated. PHYSICAL EXAMINATION: VITAL SIGNS: The patient has a temperature 97.8, pulse 80, breathing at 18, blood pressure 118/78. LABORATORY DATA: The patient does have pancytopenia with a white count of 1.3, hemoglobin 7.1, platelet count of 49. Creatinine is at 2. The patient has 43% neutrophils. ASSESSMENT AND PLAN: 1. Multiple myeloma, status post extensive course of chemotherapy and bone marrow transplant. He is currently on Revlimid. 2. In view of the patient's renal insufficiency and current status of significant pancytopenia, the patient's Revlimid will be on hold for now. We will try to contact the patient's primary oncologist, . . The patient does not recall the name, however, physician. 3. In view of neutropenic fever, full evaluation is done. Neupogen will be made . In view of the fact the patient has significant infection and multiple myeloma, SPEP, UPEP, will be evaluated. The patient's Revlimid will be on hold. 4. Lower extremity edema. Venous duplex will be done, rule out DVT. 5. Agitation, per primary team. 6. History of alcohol abuse. abdominal distention. Abdominal ultrasound will be done. Jessica Brown M.D. DR: RUSH JOB#: [id number] CC:
[2018-11-14] VITALS: BP 102/65
[2018-11-14] MEDS: Cefepime HCl 2 GM in NS 110 ML IVPB SCH (00:23)
[2018-11-14 04:00] VITALS: BP 107/59
[2018-11-14] MEDS: NovoLOG Insulin Flexpen SUBQ SCH ×4 (06:27→22:58)
[2018-11-14] MEDS: Levothyroxine 25mcg tab ORAL SCH (06:27)
[2018-11-14 06:37] LABS: HEMATOCRIT 20.8 % (42.0-52.0); MEAN CORPUSCULAR VOLUME 101 FL (80-99); PLATELET COUNT 55 K/UL (150-450); RED BLOOD COUNT 2.06 M/UL (4.70-6.10); RED CELL DISTRIBUTION WIDTH 17.2 % (11.6-14.8); WHITE BLOOD COUNT 2.5 K/UL (4.8-10.8)
[2018-11-14 06:42] LABS: ANION GAP 9 mmol/L (5-15); BLOOD UREA NITROGEN 38 mg/dL (7-18); CALCIUM 7.9 MG/DL (8.5-10.1); CARBON DIOXIDE 27 MMOL/L (21-32); CHLORIDE 106 MMOL/L (98-107); CREATININE 1.7 MG/DL (0.55-1.30); POTASSIUM 4.3 MMOL/L (3.5-5.1); SODIUM 142 MMOL/L (136-145)
[2018-11-14 06:56] LABS: HEMOGLOBIN 6.7 G/DL (14.2-18.0)
--- NOTE | 2018-11-14 07:08 | NUR ---
HAND-OFF: Report given to Octaviano Torres RN.
[2018-11-14 08:00] VITALS: BP 110/58
[2018-11-14] MEDS: Labetalol 200mg tab ORAL SCH ×3 (09:33→21:23)
[2018-11-14] MEDS: PARoxetine 20mg tab ORAL SCH (09:34)
--- NOTE | 2018-11-14 09:44 | NUR ---
NURSE NOTES: DR Keegan WHITLEY MADE AWARE OF CRITICAL VALUE HGB 607 AND HCT 20.8. SPOKE TO PT'S DTG MATIAS AND AGREED TO 2 UNITS PRBC TRANSFUSION. RECEIVED ORDER FOR [facility] [place] [facility] FOR TRANSFER TO [facility] AND COLLECT OB STOOL X3.
[2018-11-14 12:00] VITALS: BP 123/62
[2018-11-14] MEDS ORDERED: TBO-Filgrastim 300 mcg/0.5ml SQ ONE (12:00)
--- NOTE | 2018-11-14 13:20 | NUR ---
NURSE NOTES: RN SPOKE TO TYRON, WHO WILL SPEAK TO DR Keegan WHITLEY REGARDING TRANSFER.
--- NOTE | 2018-11-14 13:57 | Infectious Diseases Prog Note ---
Assessment/Plan Assessment/Plan ASSESSMENT AND PLAN: 1. sepsis, pneumonia, fevers, leukopenia, neutropenia, tho, ? influenza infection/viral syndrome - - change abx to zosyn, discontinue other abx, finish tamiflu, avoid nephrotoxic antibiotics - mycoplasma serology negative, legionella negative, sc - yeast only, no mrsa cultured - monitor labs, cr, wbc and chest x-ray - last chest x-ray worse - clinically better, fevers better - please see orders - continue per Dr. Marinelli and consultants - neupogen per hematology/oncology 2. The patient has pancytopenia and history of multiple myeloma. The patient is immunocompromised. Continue treatment per primary and consultants. Await hematology/oncology evaluation - consider neupogen for leukopenia, communicated with Dr. Marinelli. 3. Acute kidney, elevated creatinine, chronic renal failure - watch cr closely, nephrology f/u 4. History of diabetes. 5. Hypertension. 6. Blood sugar and blood pressure treatment for diabetes and hypertension per primary. 7. Hyperlipidemia. 8. Congestive heart failure, treatment per Cardiology. 9. Hypothyroidism. 10. Chronic pain syndrome. 11. History of gout. 12. History of alcohol abuse in the past. 13. Anemia, leukopenia, and thrombocytopenia. 14. Hypoxia. 15. CHF, treatment per cardiac consultants. 16. Social history currently is negative. 17. Family history is noncontributory. 18. MAR was noted. 19. Case was discussed with RN. 20. No known drug allergies. 21. Continue treatment per Dr. Marinelli and consultants. 22. Notes and records were noted. 23. Orders were entered. Subjective Constitutional: Denies: fever, chills, fatigue HEENT: Reports: congestion - less Respiratory: Reports: shortness of breath - less Cardiovascular: Denies: chest pain Gastrointestinal/Abdominal: Denies: nausea, vomiting, diarrhea Genitourinary: Denies: dysuria Neurologic: Denies: headache Psychiatric: Denies: depression Skin: Denies: rash Hematologic: Denies: bleeding Musculoskeletal: Denies: pain Allergies: Coded Allergies: No Known Allergies (Unverified , 11/09/18) Objective Vital Signs Last 24 Hour Vital Signs Date Time Temp Pulse Resp B/P (MAP) Pulse Ox O2 Delivery O2 Flow Rate FiO2 11/14/18 12:00 97.8 64 19 123/62 (82) 96 3/9/19 11:09 Nasal Cannula 2.0 28 11/14/18 11:08 97 Nasal Cannula 2.0 28 11/14/18 11:08 72 20 Nasal Cannula 2.0 28 11/14/18 09:35 64 110/58 11/14/18 09:00 Nasal Cannula 2.0 11/14/18 08:00 97.8 64 20 110/58 (75) 97 11/14/18 04:00 98.0 62 20 107/59 (75) 97 11/14/18 00:00 97.8 72 20 102/65 (77) 100 11/13/18 23:35 79 20 Nasal Cannula 2.0 28 11/13/18 23:35 Nasal Cannula 2.0 28 11/13/18 23:35 95 Nasal Cannula 2.0 28 11/13/18 22:25 85 133/86 11/13/18 21:00 Nasal Cannula 2.0 11/13/18 20:00 98.4 85 20 133/86 (102) 95 11/13/18 16:00 98.1 81 20 123/92 (102) 99 Height (Feet): 5 Height (Inches): 10.00 Weight (Pounds): 170 General Appearance: no acute distress HEENT: normocephalic, atraumatic, anicteric, mucous membranes moist Respiratory/Chest: crackles/rales, rhonchi - bilaterally Cardiovascular: normal rate, regular rhythm, no gallop/murmur, no JVD Abdomen: normal bowel sounds, soft, non tender, no organomegaly, non distended Genitourinary: other - no [place], no cva pain Extremities: no cyanosis Skin: no rash Neurologic/Psychiatric: 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 Patient is rotated to the right. Allowing for differences in exposure technique, probably unchanged right upper lobe infiltrate and generalized interstitial edema. The heart is massively enlarged. Impression: Unchanged, over 2 days, findings as above. Chest x-ray - 11/13/18 - Findings: Heart is enlarged. There is bilateral interstitial and airspace edema. This appears slightly worse than on the prior exam. And pleural spaces are clear Impression: Cardiomegaly Slightly worsening interstitial edema, over 2 days Microbiology Date/Time Source Procedure Growth Status 11/09/18 15:30 Blood Blood Culture - Preliminary NO GROWTH AFTER 4 DAYS Resulted 11/12/18 14:35 Sputum Induced Gram Stain - Final Complete 11/12/18 14:35 Sputum Culture - Final Cecy Albicans Usual Upper Respiratory Elida Complete Microbiology Date/Time Source Procedure Growth Status 11/12/18 14:35 Sputum Induced Gram Stain - Final Complete 11/12/18 14:35 Sputum Culture - Final Cecy Albicans Usual Upper Respiratory Elida Complete Laboratory Tests Test 11/14/18 04:40 White Blood Count 2.5 K/UL (4.8-10.8) #L Red Blood Count 2.06 M/UL (4.70-6.10) L Hemoglobin 6.7 G/DL (14.2-18.0) *L Hematocrit 20.8 % (42.0-52.0) L Mean Corpuscular Volume 101 FL (80-99) H Mean Corpuscular Hemoglobin 32.6 PG (27.0-31.0) H Mean Corpuscular Hemoglobin Concent 32.4 G/DL (32.0-36.0) Red Cell Distribution Width 17.2 % (11.6-14.8) H Platelet Count 55 K/UL (150-450) L Mean Platelet Volume 10.1 FL (6.5-10.1) Neutrophils (%) (Auto) % (45.0-75.0) Lymphocytes (%) (Auto) % (20.0-45.0) Monocytes (%) (Auto) % (1.0-10.0) Eosinophils (%) (Auto) % (0.0-3.0) Basophils (%) (Auto) % (0.0-2.0) Differential Total Cells Counted 100 Neutrophils % (Manual) 66 % (45-75) Lymphocytes % (Manual) 24 % (20-45) Monocytes % (Manual) 6 % (1-10) Eosinophils % (Manual) 2 % (0-3) Basophils % (Manual) 0 % (0-2) Band Neutrophils 2 % (0-8) Platelet Estimate Decreased L Platelet Morphology Normal Anisocytosis 1+ Macrocytosis 1+ Sodium Level 142 MMOL/L (136-145) Potassium Level 4.3 MMOL/L (3.5-5.1) Chloride Level 106 MMOL/L (98-107) Carbon Dioxide Level 27 MMOL/L (21-32) Anion Gap 9 mmol/L (5-15) Blood Urea Nitrogen 38 mg/dL (7-18) H Creatinine 1.7 MG/DL (0.55-1.30) H Estimat Glomerular Filtration Rate 40.4 mL/min (>60) Glucose Level 115 MG/DL (74-106) H Calcium Level 7.9 MG/DL (8.5-10.1) L Current Medications Medications (Trade) Dose Ordered Sig/Jet Route PRN Reason Start Time Stop Time Status Last Admin Dose Admin Acetaminophen (Tylenol) 650 mg Q4H PRN ORAL Mild Pain (Pain Scale 1-3) 11/12/18 12:30 12/09/18 12:29 Allopurinol (Allopurinol) 300 mg DAILY ORAL 11/13/18 09:00 12/10/18 08:59 11/14/18 09:34 Azithromycin 500 mg/Dextrose 275 ml @ 275 mls/hr Q24HRS IV 11/12/18 21:00 11/15/18 21:59 11/13/18 22:26 Cefepime HCl 2 gm/ Sodium Chloride 110 ml @ 220 mls/hr Q24H IVPB 11/12/18 22:00 11/19/18 21:59 11/14/18 00:23 Dextrose (Dextrose 50%) 25 ml Q30M PRN IV Hypoglycemia 11/12/18 12:30 12/09/18 12:29 Dextrose (Dextrose 50%) 50 ml Q30M PRN IV Hypoglycemia 11/12/18 12:30 12/09/18 12:29 Famotidine (Pepcid) 40 mg DAILY ORAL 11/13/18 09:00 12/10/18 08:59 11/13/18 08:29 Insulin Aspart (NovoLOG) BEFORE MEALS AND HS SUBQ 11/12/18 16:30 12/09/18 20:59 11/14/18 06:27 Insulin Detemir (Levemir) 23 units Q24H SUBQ 11/12/18 21:00 12/09/18 20:59 11/13/18 22:48 Labetalol HCl (Normodyne) 200 mg Q12HR ORAL 11/12/18 21:00 12/11/18 20:59 11/13/18 22:25 Levothyroxine Sodium (Synthroid) 25 mcg DAILY@0630 ORAL 11/13/18 06:30 12/10/18 06:29 11/14/18 06:27 Lorazepam (Ativan) 1 mg Q6H PRN ORAL For Agitation 11/12/18 18:00 11/19/18 17:59 11/13/18 08:30 Oseltamivir Phosphate (Tamiflu) 30 mg TWICE A DAY ORAL 11/12/18 18:00 11/15/18 17:59 11/14/18 09:34 Paroxetine HCl (Paxil) 40 mg DAILY ORAL 11/13/18 09:00 12/10/18 08:59 11/14/18 09:34 Sodium Chloride 1,000 ml @ 100 mls/hr Q10H IV 11/12/18 12:30 12/12/18 12:29 11/14/18 03:58 Tamsulosin HCl (Flomax) 0.4 mg BEDTIME ORAL 11/12/18 21:00 12/09/18 20:59 11/13/18 22:24 Tbo-Filgrastim (Granix) 480 mcg BIOTEC SQ 11/13/18 12:00 12/13/18 11:59 11/13/18 11:01 Vancomycin HCl (Vanco rx to dose) 1 ea DAILY PRN MISC Per rx protocol 11/12/18 12:30 12/12/18 12:29 Vancomycin HCl/ Dextrose 275 ml @ 137.5 mls/ hr Q24H IVPB 11/13/18 18:30 11/18/18 18:29 11/13/18 17:32 Ino Duncan MD Nov 14, 2018 13:57
--- NOTE | 2018-11-14 14:29 | Nephrology Progress Note ---
Assessment/Plan Assessment/Plan A/P 1) CKD 3B- Cr down to 1.7. Hold BP meds if SBP <110 - due to sepsis/hypotension and volume depletion - stable renal function 2) Hypotension- hold BP medications if SBP <110 3) Hyponatremia- resolved 4) Sepsis- leukopenia/PNA- per ID . Monitor Vanc level. WBC improving on Filgastrim 5) MM- s/p bone marrow tx 2 years ago. Per ONC wish to transfer to [place] 6) Anemia- blood tx Subjective Date patient seen: Nov 14, 2018 Time patient seen: 14:26 ROS Limited/Unobtainable: Yes Allergies: Coded Allergies: No Known Allergies (Unverified , 11/09/18) Subjective Patient resting in no distress Objective Last 24 Hour Vital Signs Date Time Temp Pulse Resp B/P (MAP) Pulse Ox O2 Delivery O2 Flow Rate FiO2 11/14/18 12:00 97.8 64 19 123/62 (82) 96 11/14/18 11:09 Nasal Cannula 2.0 28 11/14/18 11:08 97 Nasal Cannula 2.0 28 11/14/18 11:08 72 20 Nasal Cannula 2.0 28 11/14/18 09:35 64 110/58 11/14/18 09:00 Nasal Cannula 2.0 11/14/18 08:00 97.8 64 20 110/58 (75) 97 11/14/18 04:00 98.0 62 20 107/59 (75) 97 11/14/18 00:00 97.8 72 20 102/65 (77) 100 11/13/18 23:35 79 20 Nasal Cannula 2.0 28 11/13/18 23:35 Nasal Cannula 2.0 28 11/13/18 23:35 95 Nasal Cannula 2.0 28 11/13/18 22:25 85 133/86 11/13/18 21:00 Nasal Cannula 2.0 11/13/18 20:00 98.4 85 20 133/86 (102) 95 11/13/18 16:00 98.1 81 20 123/92 (102) 99 Intake and Output 11/13/18 11/14/18 19:00 07:00 Intake Total 1257.5 ml 237.5 ml Balance 1257.5 ml 237.5 ml Intake Oral 120 ml IV Total 1137.5 ml 237.5 ml # Voids 2 5 # Bowel Movements 2 Laboratory Tests 11/14/18 04:40: White Blood Count 2.5#L, Red Blood Count 2.06L, Hemoglobin 6.7*L, Hematocrit 20.8L, Mean Corpuscular Volume 101H, Mean Corpuscular Hemoglobin 32.6H, Mean Corpuscular Hemoglobin Concent 32.4, Red Cell Distribution Width 17.2H, Platelet Count 55L, Mean Platelet Volume 10.1, Neutrophils (%) (Auto) , Lymphocytes (%) (Auto) , Monocytes (%) (Auto) , Eosinophils (%) (Auto) , Basophils (%) (Auto) , Differential Total Cells Counted 100, Neutrophils % ( Manual) 66, Lymphocytes % (Manual) 24, Monocytes % (Manual) 6, Eosinophils % ( Manual) 2, Basophils % (Manual) 0, Band Neutrophils 2, Platelet Estimate DecreasedL, Platelet Morphology Normal, Anisocytosis 1+, Macrocytosis 1+, Sodium Level 142, Potassium Level 4.3, Chloride Level 106, Carbon Dioxide Level 27, Anion Gap 9, Blood Urea Nitrogen 38H, Creatinine 1.7H, Estimat Glomerular Filtration Rate 40.4, Glucose Level 115H, Calcium Level 7.9L Height (Feet): 5 Height (Inches): 10.00 Weight (Pounds): 170 General Appearance: no apparent distress, alert EENT: normal ENT inspection Neck: normal alignment, supple Cardiovascular: normal rate, regular rhythm Respiratory/Chest: crackles/rales, rhonchi - bilaterally Abdomen: non tender, soft Edema: no edema noted Arm (L), no edema noted Arm (R), no edema noted Leg (L), no edema noted Leg (R), no edema noted Pedal (L), no edema noted Pedal (R), no edema noted Generalized Winston Tong MD Nov 14, 2018 14:29
--- NOTE | 2018-11-14 15:30 | NUR ---
NURSE NOTES: PT TOLERATED FIRST UNIT OF PRBC TRANSFUSION WELL. VSS. IN NO APPARENT DISTRESS AT THIS TIME.
[2018-11-14 16:00] VITALS: BP 137/71
--- NOTE | 2018-11-14 17:20 | Pulmonology Progress Note ---
Assessment/Plan Assessment/Plan 1. Pneumonia. 2. Multiple myeloma. 3. Chronic pain. 4. Hyperlipidemia. 5. Diabetes mellitus. 6. Hypertension. 7. History of alcohol abuse. 8. Gout. 9. Leukopenia DISCUSSION: Continue broad-spectrum antibiotics. 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 Seen by ID and nephrology Looking better On Neupogen Subjective Interval Events: Feeling better Constitutional: Reports: no symptoms HEENT: Repors: no symptoms Respiratory: Reports: no symptoms Cardiovascular: Reports: no symptoms Gastrointestinal/Abdominal: Reports: no symptoms Genitourinary: Reports: no symptoms Allergies: Coded Allergies: No Known Allergies (Unverified , 11/09/18) Objective Last 24 Hour Vital Signs Date Time Temp Pulse Resp B/P (MAP) Pulse Ox O2 Delivery O2 Flow Rate FiO2 11/14/18 16:00 97.5 61 19 137/71 (93) 98 11/14/18 12:00 97.8 64 19 123/62 (82) 96 11/14/18 11:09 Nasal Cannula 2.0 28 11/14/18 11:08 97 Nasal Cannula 2.0 28 11/14/18 11:08 72 20 Nasal Cannula 2.0 28 11/14/18 09:35 64 110/58 11/14/18 09:00 Nasal Cannula 2.0 11/14/18 08:00 97.8 64 20 110/58 (75) 97 11/14/18 04:00 98.0 62 20 107/59 (75) 97 11/14/18 00:00 97.8 72 20 102/65 (77) 100 11/13/18 23:35 79 20 Nasal Cannula 2.0 28 11/13/18 23:35 Nasal Cannula 2.0 28 11/13/18 23:35 95 Nasal Cannula 2.0 28 11/13/18 22:25 85 133/86 11/13/18 21:00 Nasal Cannula 2.0 11/13/18 20:00 98.4 85 20 133/86 (102) 95 Intake and Output 11/13/18 11/14/18 19:00 07:00 Intake Total 1257.5 ml 237.5 ml Balance 1257.5 ml 237.5 ml Intake Oral 120 ml IV Total 1137.5 ml 237.5 ml # Voids 2 5 # Bowel Movements 2 General Appearance: no acute distress HEENT: normocephalic Respiratory/Chest: chest wall non-tender, lungs clear Cardiovascular: normal peripheral pulses, normal rate Abdomen: normal bowel sounds, soft, non tender Microbiology Date/Time Source Procedure Growth Status 11/12/18 14:35 Sputum Induced Gram Stain - Final Complete 11/12/18 14:35 Sputum Culture - Final Cecy Albicans Usual Upper Respiratory Elida Complete Laboratory Tests 11/14/18 04:40: White Blood Count 2.5#L, Red Blood Count 2.06L, Hemoglobin 6.7*L, Hematocrit 20.8L, Mean Corpuscular Volume 101H, Mean Corpuscular Hemoglobin 32.6H, Mean Corpuscular Hemoglobin Concent 32.4, Red Cell Distribution Width 17.2H, Platelet Count 55L, Mean Platelet Volume 10.1, Neutrophils (%) (Auto) , Lymphocytes (%) (Auto) , Monocytes (%) (Auto) , Eosinophils (%) (Auto) , Basophils (%) (Auto) , Differential Total Cells Counted 100, Neutrophils % ( Manual) 66, Lymphocytes % (Manual) 24, Monocytes % (Manual) 6, Eosinophils % ( Manual) 2, Basophils % (Manual) 0, Band Neutrophils 2, Platelet Estimate DecreasedL, Platelet Morphology Normal, Anisocytosis 1+, Macrocytosis 1+, Sodium Level 142, Potassium Level 4.3, Chloride Level 106, Carbon Dioxide Level 27, Anion Gap 9, Blood Urea Nitrogen 38H, Creatinine 1.7H, Estimat Glomerular Filtration Rate 40.4, Glucose Level 115H, Calcium Level 7.9L Current Medications Medications (Trade) Dose Ordered Sig/Jet Route PRN Reason Start Time Stop Time Status Last Admin Dose Admin Acetaminophen (Tylenol) 650 mg Q4H PRN ORAL Mild Pain (Pain Scale 1-3) 11/12/18 12:30 12/09/18 12:29 Allopurinol (Allopurinol) 300 mg DAILY ORAL 11/13/18 09:00 12/10/18 08:59 11/14/18 09:34 Dextrose (Dextrose 50%) 25 ml Q30M PRN IV Hypoglycemia 11/12/18 12:30 12/09/18 12:29 Dextrose (Dextrose 50%) 50 ml Q30M PRN IV Hypoglycemia 11/12/18 12:30 12/09/18 12:29 Famotidine (Pepcid) 40 mg DAILY ORAL 11/13/18 09:00 12/10/18 08:59 11/13/18 08:29 Insulin Aspart (NovoLOG) BEFORE MEALS AND HS SUBQ 11/12/18 16:30 12/09/18 20:59 11/14/18 06:27 Insulin Detemir (Levemir) 23 units Q24H SUBQ 11/12/18 21:00 12/09/18 20:59 11/13/18 22:48 Labetalol HCl (Normodyne) 200 mg Q12HR ORAL 11/12/18 21:00 12/11/18 20:59 11/13/18 22:25 Levothyroxine Sodium (Synthroid) 25 mcg DAILY@0630 ORAL 11/13/18 06:30 12/10/18 06:29 11/14/18 06:27 Lorazepam (Ativan) 1 mg Q6H PRN ORAL For Agitation 11/12/18 18:00 11/19/18 17:59 11/13/18 08:30 Oseltamivir Phosphate (Tamiflu) 30 mg TWICE A DAY ORAL 11/12/18 18:00 11/15/18 17:59 11/14/18 09:34 Paroxetine HCl (Paxil) 40 mg DAILY ORAL 11/13/18 09:00 12/10/18 08:59 11/14/18 09:34 Piperacillin Sod/ Tazobactam Sod 3.375 gm/Dextrose 100 ml @ 25 mls/hr EVERY 8 HOURS IVPB 11/14/18 15:00 11/19/18 14:59 Sodium Chloride 1,000 ml @ 100 mls/hr Q10H IV 11/12/18 12:30 12/12/18 12:29 11/14/18 03:58 Tamsulosin HCl (Flomax) 0.4 mg BEDTIME ORAL 11/12/18 21:00 12/09/18 20:59 11/13/18 22:24 Tbo-Filgrastim (Granix) 480 mcg BIOTEC SQ 11/13/18 12:00 12/13/18 11:59 11/13/18 11:01 Xu Marinelli MD Nov 14, 2018 17:20
--- NOTE | 2018-11-14 19:21 | NUR ---
HAND-OFF: Report given to Ada BEYER RN.
--- NOTE | 2018-11-14 19:30 | NUR ---
NURSE NOTES: Received report from Octaviano Torres RN. Patient currently receiving blood transfusion. On nasal cannula. No signs of distress, labored breathing or reaction to transfusion. Bed in lowest position with call light in reach. Will continue with plan of care.
[2018-11-14 20:00] VITALS: BP 147/79
[2018-11-14] MEDS ORDERED: Tubing IV Secondary IV ONE (20:04)
[2018-11-14] MEDS ORDERED: NS 500ML ONE (20:04)
[2018-11-14] MEDS: Tamsulosin 0.4mg cap ORAL SCH (21:23)
[2018-11-14] MEDS: TBO-Filgrastim 480 mcg/0.8ml SQ NR ×2 (21:26→21:54)
[2018-11-14] MEDS: Levemir Flexpen SUBQ SCH (22:59)
[2018-11-15 04:00] VITALS: BP 153/87
--- NOTE | 2018-11-15 06:14 | NUR ---
NURSE NOTES: At around 0455 Hvac Service Tech alerted RN that patient had fallen. Came into patient room to find patient on the floor. was with patient. states patient was trying to stand up to use urinal and slipped in urine. , RN, and MILITARY SOURCE OPERATIONS OFFICER helped patient get back into bed. Vitals fall within patient's baseline. states patient did not hit head. No apparent injury. Patient is moaning and groaning. MD notified, no orders were given.
[2018-11-15] MEDS: NovoLOG Insulin Flexpen SUBQ SCH ×4 (06:57→21:41)
[2018-11-15] MEDS: Levothyroxine 25mcg tab ORAL SCH ×2 (06:57→07:06)
--- NOTE | 2018-11-15 07:35 | NUR ---
NURSE NOTES: Received patient on bed, asleep. IV site intact and patent. Bed in low and locked position, call light in reach. No signs of respiratory distress or pain. at bedside. Room board updated, will continue to monitor.
[2018-11-15 07:43] LABS: ALANINE AMINOTRANSFERASE 44 U/L (12-78); ALBUMIN 2.3 G/DL (3.4-5.0); ALBUMIN/GLOBULIN RATIO 0.5 (1.0-2.7); ALKALINE PHOSPHATASE 82 U/L (46-116); ANION GAP 7 mmol/L (5-15); ASPARTATE AMINO TRANSFERASE 24 U/L (15-37); BILIRUBIN,TOTAL 0.7 MG/DL (0.2-1.0); BLOOD UREA NITROGEN 24 mg/dL (7-18); CALCIUM 8.2 MG/DL (8.5-10.1); CARBON DIOXIDE 28 MMOL/L (21-32); CHLORIDE 104 MMOL/L (98-107); CREATININE 1.6 MG/DL (0.55-1.30); POTASSIUM 4.3 MMOL/L (3.5-5.1); SODIUM 139 MMOL/L (136-145)
[2018-11-15 08:00] VITALS: BP 146/71
[2018-11-15 08:07] LABS: HEMOGLOBIN 8.8 G/DL (14.2-18.0); MEAN CORPUSCULAR VOLUME 96 FL (80-99); PLATELET COUNT 68 K/UL (150-450); RED BLOOD COUNT 2.81 M/UL (4.70-6.10); RED CELL DISTRIBUTION WIDTH 17.5 % (11.6-14.8); WHITE BLOOD COUNT 4.9 K/UL (4.8-10.8)
--- NOTE | 2018-11-15 08:17 | NUR ---
HAND-OFF: Report given to STEPHANIE Rivera.
--- NOTE | 2018-11-15 09:38 | Pulmonology Progress Note ---
Assessment/Plan Assessment/Plan 1. Pneumonia. 2. Multiple myeloma. 3. Chronic pain. 4. Hyperlipidemia. 5. Diabetes mellitus. 6. Hypertension. 7. History of alcohol abuse. 8. Gout. 9. Leukopenia DISCUSSION: Continue broad-spectrum antibiotics. 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 Seen by ID and nephrology Looking better On Neupogen; WBC improved S/p fall; no injuries Subjective Interval Events: none new; had slip and fall last night; no injuries Constitutional: Reports: no symptoms HEENT: Repors: no symptoms Respiratory: Reports: no symptoms Cardiovascular: Reports: no symptoms Gastrointestinal/Abdominal: Reports: no symptoms Genitourinary: Reports: no symptoms Allergies: Coded Allergies: No Known Allergies (Unverified , 11/09/18) Objective Last 24 Hour Vital Signs Date Time Temp Pulse Resp B/P (MAP) Pulse Ox O2 Delivery O2 Flow Rate FiO2 11/15/18 08:00 98.1 65 18 146/71 (96) 93 11/15/18 07:54 96 Nasal Cannula 2.0 28 11/15/18 07:54 78 16 Nasal Cannula 2.0 28 11/15/18 07:54 Nasal Cannula 2.0 28 11/15/18 04:00 97.7 73 19 153/87 (109) 97 11/14/18 21:38 Nasal Cannula 2.0 28 11/14/18 21:38 95 Nasal Cannula 2.0 28 11/14/18 21:38 85 16 Nasal Cannula 2.0 28 11/14/18 21:23 66 147/74 11/14/18 21:00 Nasal Cannula 2.0 11/14/18 20:00 98.4 66 19 147/79 (101) 95 11/14/18 16:00 97.5 61 19 137/71 (93) 98 11/14/18 12:00 97.8 64 19 123/62 (82) 96 11/14/18 11:09 Nasal Cannula 2.0 28 11/14/18 11:08 97 Nasal Cannula 2.0 28 11/14/18 11:08 72 20 Nasal Cannula 2.0 28 Intake and Output 11/14/18 11/15/18 19:00 07:00 Intake Total 640 ml 100 ml Balance 640 ml 100 ml Intake Oral 240 ml IV Total 400 ml 100 ml # Voids 4 General Appearance: no acute distress HEENT: normocephalic Respiratory/Chest: chest wall non-tender, lungs clear Cardiovascular: normal peripheral pulses, normal rate Abdomen: normal bowel sounds, soft, non tender Microbiology Date/Time Source Procedure Growth Status 11/12/18 14:35 Sputum Induced Gram Stain - Final Complete 11/12/18 14:35 Sputum Culture - Final Cecy Albicans Usual Upper Respiratory Elida Complete Laboratory Tests 11/15/18 05:15: White Blood Count 4.9#, Red Blood Count 2.81L, Hemoglobin 8.8#L, Hematocrit 27.0L, Mean Corpuscular Volume 96, Mean Corpuscular Hemoglobin 31.4H, Mean Corpuscular Hemoglobin Concent 32.7, Red Cell Distribution Width 17.5H, Platelet Count 68L, Mean Platelet Volume 8.6, Neutrophils (%) (Auto) , Lymphocytes (%) (Auto) , Monocytes (%) (Auto) , Eosinophils (%) (Auto) , Basophils (%) (Auto) , Neutrophils % (Manual) [Pending], Lymphocytes % (Manual) [Pending], Platelet Estimate [Pending], Platelet Morphology [Pending], Sodium Level 139, Potassium Level 4.3, Chloride Level 104, Carbon Dioxide Level 28, Anion Gap 7, Blood Urea Nitrogen 24H, Creatinine 1.6H, Estimat Glomerular Filtration Rate 43.3, Glucose Level 112H, Calcium Level 8.2L, Total Bilirubin 0.7, Aspartate Amino Transf (AST/SGOT) 24, Alanine Aminotransferase (ALT/SGPT) 44, Alkaline Phosphatase 82, Total Protein 6.6, Albumin 2.3L, Globulin 4.3, Albumin/Globulin Ratio 0.5L Current Medications Medications (Trade) Dose Ordered Sig/Jet Route PRN Reason Start Time Stop Time Status Last Admin Dose Admin Acetaminophen (Tylenol) 650 mg Q4H PRN ORAL Mild Pain (Pain Scale 1-3) 11/12/18 12:30 12/09/18 12:29 Allopurinol (Allopurinol) 300 mg DAILY ORAL 11/13/18 09:00 12/10/18 08:59 11/14/18 09:34 Dextrose (Dextrose 50%) 25 ml Q30M PRN IV Hypoglycemia 11/12/18 12:30 12/09/18 12:29 Dextrose (Dextrose 50%) 50 ml Q30M PRN IV Hypoglycemia 11/12/18 12:30 12/09/18 12:29 Famotidine (Pepcid) 40 mg DAILY ORAL 11/13/18 09:00 12/10/18 08:59 11/13/18 08:29 Insulin Aspart (NovoLOG) BEFORE MEALS AND HS SUBQ 11/12/18 16:30 12/09/18 20:59 11/15/18 06:57 Insulin Detemir (Levemir) 23 units Q24H SUBQ 11/12/18 21:00 12/09/18 20:59 11/14/18 22:59 Labetalol HCl (Normodyne) 200 mg Q12HR ORAL 11/12/18 21:00 12/11/18 20:59 11/14/18 21:23 Levothyroxine Sodium (Synthroid) 25 mcg DAILY@0630 ORAL 11/13/18 06:30 12/10/18 06:29 11/14/18 06:27 Lorazepam (Ativan) 1 mg Q6H PRN ORAL For Agitation 11/12/18 18:00 11/19/18 17:59 11/13/18 08:30 Oseltamivir Phosphate (Tamiflu) 30 mg TWICE A DAY ORAL 11/12/18 18:00 11/15/18 17:59 11/14/18 17:30 Paroxetine HCl (Paxil) 40 mg DAILY ORAL 11/13/18 09:00 12/10/18 08:59 11/14/18 09:34 Piperacillin Sod/ Tazobactam Sod 3.375 gm/Dextrose 100 ml @ 25 mls/hr EVERY 8 HOURS IVPB 11/14/18 15:00 11/19/18 14:59 11/15/18 06:57 Sodium Chloride 1,000 ml @ 100 mls/hr Q10H IV 11/12/18 12:30 12/12/18 12:29 11/14/18 23:00 Tamsulosin HCl (Flomax) 0.4 mg BEDTIME ORAL 11/12/18 21:00 12/09/18 20:59 11/14/18 21:23 Tbo-Filgrastim (Granix) 480 mcg BIOTEC SQ 11/13/18 12:00 12/13/18 11:59 11/14/18 21:54 Xu Marinelli MD Nov 15, 2018 09:38
--- NOTE | 2018-11-15 10:05 | General Progress Note ---
Assessment/Plan Assessment/Plan (1) Opioid dependency We will continue Ativan as needed D/w Dr. Duran and he concurred. Subjective Date patient seen: Nov 15, 2018 Time patient seen: 09:30 - am Constitutional: Reports: weakness HEENT: Reports: no symptoms Cardiovascular: Reports: no symptoms Respiratory: Reports: no symptoms Gastrointestinal/Abdominal: Reports: no symptoms Genitourinary: Reports: no symptoms Neurologic/Psychiatric: Reports: weakness Endocrine: Reports: no symptoms Hematologic/Lymphatic: Reports: no symptoms Allergies: Coded Allergies: No Known Allergies (Unverified , 11/09/18) Subjective Patient is in bed with at bedside. No signs of pain or distress. Objective Last 24 Hour Vital Signs Date Time Temp Pulse Resp B/P (MAP) Pulse Ox O2 Delivery O2 Flow Rate FiO2 11/15/18 08:00 98.1 65 18 146/71 (96) 93 11/15/18 07:54 96 Nasal Cannula 2.0 28 11/15/18 07:54 78 16 Nasal Cannula 2.0 28 11/15/18 07:54 Nasal Cannula 2.0 28 11/15/18 04:00 97.7 73 19 153/87 (109) 97 11/14/18 21:38 Nasal Cannula 2.0 28 11/14/18 21:38 95 Nasal Cannula 2.0 28 11/14/18 21:38 85 16 Nasal Cannula 2.0 28 11/14/18 21:23 66 147/74 11/14/18 21:00 Nasal Cannula 2.0 11/14/18 20:00 98.4 66 19 147/79 (101) 95 11/14/18 16:00 97.5 61 19 137/71 (93) 98 11/14/18 12:00 97.8 64 19 123/62 (82) 96 11/14/18 11:09 Nasal Cannula 2.0 28 11/14/18 11:08 97 Nasal Cannula 2.0 28 11/14/18 11:08 72 20 Nasal Cannula 2.0 28 Intake and Output 11/14/18 11/15/18 19:00 07:00 Intake Total 640 ml 100 ml Balance 640 ml 100 ml Intake Oral 240 ml IV Total 400 ml 100 ml # Voids 4 Laboratory Tests 11/15/18 05:15: White Blood Count 4.9#, Red Blood Count 2.81L, Hemoglobin 8.8#L, Hematocrit 27.0L, Mean Corpuscular Volume 96, Mean Corpuscular Hemoglobin 31.4H, Mean Corpuscular Hemoglobin Concent 32.7, Red Cell Distribution Width 17.5H, Platelet Count 68L, Mean Platelet Volume 8.6, Neutrophils (%) (Auto) , Lymphocytes (%) (Auto) , Monocytes (%) (Auto) , Eosinophils (%) (Auto) , Basophils (%) (Auto) , Neutrophils % (Manual) [Pending], Lymphocytes % (Manual) [Pending], Platelet Estimate [Pending], Platelet Morphology [Pending], Sodium Level 139, Potassium Level 4.3, Chloride Level 104, Carbon Dioxide Level 28, Anion Gap 7, Blood Urea Nitrogen 24H, Creatinine 1.6H, Estimat Glomerular Filtration Rate 43.3, Glucose Level 112H, Calcium Level 8.2L, Total Bilirubin 0.7, Aspartate Amino Transf (AST/SGOT) 24, Alanine Aminotransferase (ALT/SGPT) 44, Alkaline Phosphatase 82, Total Protein 6.6, Albumin 2.3L, Globulin 4.3, Albumin/Globulin Ratio 0.5L Height (Feet): 5 Height (Inches): 10.00 Weight (Pounds): 170 General Appearance: no apparent distress, alert EENT: PERRL/EOMI, normal ENT inspection Neck: normal alignment, supple Cardiovascular: normal rate, regular rhythm Respiratory/Chest: decreased breath sounds Abdomen: non tender, soft Extremities: non-tender Edema: no edema noted Arm (L), no edema noted Arm (R), no edema noted Leg (L), no edema noted Leg (R), no edema noted Pedal (L), no edema noted Pedal (R), no edema noted Generalized Neurologic: alert, oriented x 3 Skin: normal pigmentation Alonso Mariscal Nov 15, 2018 10:05
[2018-11-15] MEDS ORDERED: Tubing IV Secondary IV ONE (10:09)
[2018-11-15] MEDS ORDERED: NS 275ml ONE (10:09)
[2018-11-15] MEDS: PARoxetine 20mg tab ORAL SCH (10:34)
[2018-11-15] MEDS: Labetalol 200mg tab ORAL SCH ×2 (10:34→20:57)
--- NOTE | 2018-11-15 11:10 | NUR ---
NURSE NOTES: Patient pulled out IV's/ Will attempt to start new one.
[2018-11-15 12:00] VITALS: BP 128/84
--- NOTE | 2018-11-15 13:37 | Nephrology Progress Note ---
Assessment/Plan Assessment/Plan A/P 1) CKD 3B- Cr down to 1.6. Hold BP meds if SBP <110 - due to sepsis/hypotension and volume depletion - Cr stable 2) Hypotension- hold BP medications if SBP <110 3) Hyponatremia- resolved 4) Sepsis- leukopenia/PNA- per ID. WBC up to 4.9 5) MM- s/p bone marrow tx 2 years ago. Per ONC wish to transfer to [place] 6) Anemia- blood tx Subjective Date patient seen: Nov 15, 2018 Time patient seen: 13:35 ROS Limited/Unobtainable: Yes Allergies: Coded Allergies: No Known Allergies (Unverified , 11/09/18) Subjective Patient sleeping and does not want to be disturbed Objective Last 24 Hour Vital Signs Date Time Temp Pulse Resp B/P (MAP) Pulse Ox O2 Delivery O2 Flow Rate FiO2 11/15/18 12:00 97.7 81 20 128/84 (99) 91 11/15/18 10:34 65 146/71 11/15/18 09:00 Nasal Cannula 2.0 11/15/18 08:00 98.1 65 18 146/71 (96) 93 11/15/18 07:54 96 Nasal Cannula 2.0 28 11/15/18 07:54 78 16 Nasal Cannula 2.0 28 11/15/18 07:54 Nasal Cannula 2.0 28 11/15/18 04:00 97.7 73 19 153/87 (109) 97 11/14/18 21:38 Nasal Cannula 2.0 28 11/14/18 21:38 95 Nasal Cannula 2.0 28 11/14/18 21:38 85 16 Nasal Cannula 2.0 28 11/14/18 21:23 66 147/74 11/14/18 21:00 Nasal Cannula 2.0 11/14/18 20:00 98.4 66 19 147/79 (101) 95 11/14/18 16:00 97.5 61 19 137/71 (93) 98 Intake and Output 11/14/18 11/15/18 19:00 07:00 Intake Total 640 ml 100 ml Balance 640 ml 100 ml Intake Oral 240 ml IV Total 400 ml 100 ml # Voids 4 Laboratory Tests 11/15/18 05:15: White Blood Count 4.9#, Red Blood Count 2.81L, Hemoglobin 8.8#L, Hematocrit 27.0L, Mean Corpuscular Volume 96, Mean Corpuscular Hemoglobin 31.4H, Mean Corpuscular Hemoglobin Concent 32.7, Red Cell Distribution Width 17.5H, Platelet Count 68L, Mean Platelet Volume 8.6, Neutrophils (%) (Auto) , Lymphocytes (%) (Auto) , Monocytes (%) (Auto) , Eosinophils (%) (Auto) , Basophils (%) (Auto) , Differential Total Cells Counted 100, Neutrophils % ( Manual) 60, Lymphocytes % (Manual) 16L, Monocytes % (Manual) 12H, Eosinophils % (Manual) 5H, Basophils % (Manual) 0, Band Neutrophils 7, Platelet Estimate DecreasedL, Platelet Morphology Normal, Anisocytosis 1+, Sodium Level 139, Potassium Level 4.3, Chloride Level 104, Carbon Dioxide Level 28, Anion Gap 7, Blood Urea Nitrogen 24H, Creatinine 1.6H, Estimat Glomerular Filtration Rate 43.3, Glucose Level 112H, Calcium Level 8.2L, Total Bilirubin 0.7, Aspartate Amino Transf (AST/SGOT) 24, Alanine Aminotransferase (ALT/SGPT) 44, Alkaline Phosphatase 82, Total Protein 6.6, Albumin 2.3L, Globulin 4.3, Albumin/Globulin Ratio 0.5L Height (Feet): 5 Height (Inches): 10.00 Weight (Pounds): 170 Winston Tong MD Nov 15, 2018 13:37
[2018-11-15 16:00] VITALS: BP 126/92
--- NOTE | 2018-11-15 19:44 | NUR ---
HAND-OFF: Report given to STEPHANIE Mata. Addendum: 11/15/18 at 1946 by SVETLANA FORBES RN RN Correction hand off given to ab Hargrove.
--- NOTE | 2018-11-15 19:51 | NUR ---
NURSE NOTES: Received report from STEPHANIE Rivera. Patient sleeping. On nasal cannula, no signs of distress or labored breathing. IV intact, patent, and infusing IV fluids.
[2018-11-15 20:00] VITALS: BP 156/78
[2018-11-15] MEDS: Tamsulosin 0.4mg cap ORAL SCH (20:58)
[2018-11-15] MEDS: TBO-Filgrastim 480 mcg/0.8ml SQ NR (21:17)
[2018-11-15] MEDS: Levemir Flexpen SUBQ SCH (21:41)
[2018-11-16] VITALS: BP 152/70
[2018-11-16] MEDS: Levothyroxine 25mcg tab ORAL SCH (06:34)
[2018-11-16] MEDS: NovoLOG Insulin Flexpen SUBQ SCH ×3 (06:36→16:53)
[2018-11-16 07:18] LABS: HEMATOCRIT 25.1 % (42.0-52.0); HEMOGLOBIN 8.3 G/DL (14.2-18.0); MEAN CORPUSCULAR VOLUME 96 FL (80-99); PLATELET COUNT 78 K/UL (150-450); RED BLOOD COUNT 2.61 M/UL (4.70-6.10); RED CELL DISTRIBUTION WIDTH 17.6 % (11.6-14.8); WHITE BLOOD COUNT 6.9 K/UL (4.8-10.8)
[2018-11-16 07:33] LABS: ANION GAP 7 mmol/L (5-15); BLOOD UREA NITROGEN 19 mg/dL (7-18); CALCIUM 8.5 MG/DL (8.5-10.1); CARBON DIOXIDE 29 MMOL/L (21-32); CHLORIDE 107 MMOL/L (98-107); CREATININE 1.5 MG/DL (0.55-1.30); POTASSIUM 4.2 MMOL/L (3.5-5.1); SODIUM 142 MMOL/L (136-145)
[2018-11-16 07:59] VITALS: BP 148/69
[2018-11-16] MEDS: Labetalol 200mg tab ORAL SCH (08:13)
[2018-11-16] MEDS: PARoxetine 20mg tab ORAL SCH (08:13)
--- NOTE | 2018-11-16 08:14 | NUR ---
HAND-OFF: Report given to STEPHANIE Marcos.
--- NOTE | 2018-11-16 08:48 | General Progress Note ---
Assessment/Plan Assessment/Plan (1) Opioid dependency We will continue Ativan as needed D/w Dr. Duran and he concurred. Subjective Date patient seen: Nov 16, 2018 Time patient seen: 07:00 - am Constitutional: Reports: no symptoms HEENT: Reports: no symptoms Cardiovascular: Reports: no symptoms Respiratory: Reports: no symptoms Gastrointestinal/Abdominal: Reports: no symptoms Genitourinary: Reports: no symptoms Neurologic/Psychiatric: Reports: no symptoms Endocrine: Reports: no symptoms Hematologic/Lymphatic: Reports: no symptoms Allergies: Coded Allergies: No Known Allergies (Unverified , 11/09/18) Subjective Patient is in bed showing no signs of pain. Objective Last 24 Hour Vital Signs Date Time Temp Pulse Resp B/P (MAP) Pulse Ox O2 Delivery O2 Flow Rate FiO2 11/16/18 08:34 Nasal Cannula 2.0 11/16/18 08:13 68 148/69 11/16/18 07:59 97.7 68 19 148/69 (95) 94 11/16/18 00:00 97.7 60 19 152/70 (97) 94 11/15/18 21:20 68 20 Nasal Cannula 3.0 32 11/15/18 21:20 Nasal Cannula 2.0 28 11/15/18 21:20 93 Nasal Cannula 3.0 32 11/15/18 21:00 Nasal Cannula 2.0 11/15/18 20:57 68 156/78 11/15/18 20:00 97.5 68 19 156/78 (104) 96 11/15/18 16:00 99.7 91 20 126/92 (103) 94 11/15/18 12:00 97.7 81 20 128/84 (99) 91 11/15/18 10:34 65 146/71 11/15/18 09:00 Nasal Cannula 2.0 Intake and Output 11/15/18 11/16/18 18:59 06:59 Intake Total 480 ml 600 ml Output Total 950 ml Balance -470 ml 600 ml Intake Oral 480 ml IV Total 600 ml Output Urine Total 950 ml # Voids 3 1 Laboratory Tests 11/16/18 05:50: White Blood Count 6.9, Red Blood Count 2.61L, Hemoglobin 8.3L, Hematocrit 25.1L , Mean Corpuscular Volume 96, Mean Corpuscular Hemoglobin 31.9H, Mean Corpuscular Hemoglobin Concent 33.3, Red Cell Distribution Width 17.6H, Platelet Count 78L, Mean Platelet Volume 9.9, Neutrophils (%) (Auto) , Lymphocytes (%) (Auto) , Monocytes (%) (Auto) , Eosinophils (%) (Auto) , Basophils (%) (Auto) , Differential Total Cells Counted 100, Neutrophils % ( Manual) 65, Lymphocytes % (Manual) 24, Monocytes % (Manual) 4, Eosinophils % ( Manual) 2, Basophils % (Manual) 0, Band Neutrophils 5, Platelet Estimate DecreasedL, Platelet Morphology Normal, Anisocytosis 1+, Sodium Level 142, Potassium Level 4.2, Chloride Level 107, Carbon Dioxide Level 29, Anion Gap 7, Blood Urea Nitrogen 19H, Creatinine 1.5H, Estimat Glomerular Filtration Rate 46.7, Glucose Level 117H, Calcium Level 8.5 Height (Feet): 5 Height (Inches): 10.00 Weight (Pounds): 170 General Appearance: no apparent distress, alert EENT: PERRL/EOMI, normal ENT inspection Neck: normal alignment, supple Cardiovascular: normal rate, regular rhythm Respiratory/Chest: lungs clear, normal breath sounds Abdomen: non tender, soft Extremities: non-tender, normal inspection Edema: trace edema Neurologic: alert, oriented x 3 Alonso Mariscal Nov 16, 2018 08:48
--- NOTE | 2018-11-16 09:05 | Nephrology Progress Note ---
Assessment/Plan Assessment/Plan A/P 1) CKD 3B- Cr 1.5. Hold BP meds if SBP <110 - due to sepsis/hypotension and volume depletion - Cr stable. OK for DC from renal point 2) Hypotension- hold BP medications if SBP <110 3) Hyponatremia- resolved 4) Sepsis- leukopenia/PNA- per ID. WBC up to 6.9 5) MM- s/p bone marrow tx 2 years ago. 6) Anemia- blood tx Subjective Date patient seen: Nov 16, 2018 Time patient seen: 09:00 ROS Limited/Unobtainable: No Allergies: Coded Allergies: No Known Allergies (Unverified , 11/09/18) Subjective Patient improved, breathing improved Objective Last 24 Hour Vital Signs Date Time Temp Pulse Resp B/P (MAP) Pulse Ox O2 Delivery O2 Flow Rate FiO2 11/16/18 08:34 Nasal Cannula 2.0 11/16/18 08:13 68 148/69 11/16/18 07:59 97.7 68 148/69 (95) 94 11/16/18 00:00 97.7 60 19 152/70 (97) 94 11/15/18 21:20 68 20 Nasal Cannula 3.0 32 11/15/18 21:20 Nasal Cannula 2.0 28 11/15/18 21:20 93 Nasal Cannula 3.0 32 11/15/18 21:00 Nasal Cannula 2.0 11/15/18 20:57 68 156/78 11/15/18 20:00 97.5 68 19 156/78 (104) 96 11/15/18 16:00 99.7 91 20 126/92 (103) 94 11/15/18 12:00 97.7 81 20 128/84 (99) 91 11/15/18 10:34 65 146/71 Intake and Output 11/15/18 11/16/18 18:59 06:59 Intake Total 480 ml 600 ml Output Total 950 ml Balance -470 ml 600 ml Intake Oral 480 ml IV Total 600 ml Output Urine Total 950 ml # Voids 3 1 Laboratory Tests 11/16/18 05:50: White Blood Count 6.9, Red Blood Count 2.61L, Hemoglobin 8.3L, Hematocrit 25.1L , Mean Corpuscular Volume 96, Mean Corpuscular Hemoglobin 31.9H, Mean Corpuscular Hemoglobin Concent 33.3, Red Cell Distribution Width 17.6H, Platelet Count 78L, Mean Platelet Volume 9.9, Neutrophils (%) (Auto) , Lymphocytes (%) (Auto) , Monocytes (%) (Auto) , Eosinophils (%) (Auto) , Basophils (%) (Auto) , Differential Total Cells Counted 100, Neutrophils % ( Manual) 65, Lymphocytes % (Manual) 24, Monocytes % (Manual) 4, Eosinophils % ( Manual) 2, Basophils % (Manual) 0, Band Neutrophils 5, Platelet Estimate DecreasedL, Platelet Morphology Normal, Anisocytosis 1+, Sodium Level 142, Potassium Level 4.2, Chloride Level 107, Carbon Dioxide Level 29, Anion Gap 7, Blood Urea Nitrogen 19H, Creatinine 1.5H, Estimat Glomerular Filtration Rate 46.7, Glucose Level 117H, Calcium Level 8.5 Height (Feet): 5 Height (Inches): 10.00 Weight (Pounds): 170 General Appearance: no apparent distress, alert EENT: normal ENT inspection Neck: normal alignment, supple Cardiovascular: normal rate, regular rhythm Respiratory/Chest: lungs clear, normal breath sounds Abdomen: non tender, soft Edema: no edema noted Arm (L), no edema noted Arm (R), no edema noted Leg (L), no edema noted Leg (R), no edema noted Pedal (L), no edema noted Pedal (R), no edema noted Generalized Winston Tong MD Nov 16, 2018 09:05
--- NOTE | 2018-11-16 09:15 | NUR ---
NURSE NOTES: pt awake alert, no distress no sob. no c/o pain. bed in lowest position, locked. call light within reach. will monitor.
--- NOTE | 2018-11-16 09:45 | Pulmonology Progress Note ---
Assessment/Plan Assessment/Plan 1. Pneumonia. 2. Multiple myeloma. 3. Chronic pain. 4. Hyperlipidemia. 5. Diabetes mellitus. 6. Hypertension. 7. History of alcohol abuse. 8. Gout. 9. Leukopenia DISCUSSION: Continue broad-spectrum antibiotics. 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 Seen by ID and nephrology Looking better On Neupogen; WBC improved S/p fall; no injuries IV in oplace DC planning; await ID recommendations Subjective Interval Events: Looking and feeling better; IV in left arm Constitutional: Reports: no symptoms HEENT: Repors: no symptoms Respiratory: Reports: no symptoms Cardiovascular: Reports: no symptoms Gastrointestinal/Abdominal: Reports: no symptoms Allergies: Coded Allergies: No Known Allergies (Unverified , 11/09/18) Objective Last 24 Hour Vital Signs Date Time Temp Pulse Resp B/P (MAP) Pulse Ox O2 Delivery O2 Flow Rate FiO2 11/16/18 08:34 Nasal Cannula 2.0 11/16/18 08:13 68 148/69 11/16/18 07:59 97.7 68 19 148/69 (95) 94 11/16/18 00:00 97.7 60 19 152/70 (97) 94 11/15/18 21:20 68 20 Nasal Cannula 3.0 32 11/15/18 21:20 Nasal Cannula 2.0 28 11/15/18 21:20 93 Nasal Cannula 3.0 32 11/15/18 21:00 Nasal Cannula 2.0 11/15/18 20:57 68 156/78 11/15/18 20:00 97.5 68 19 156/78 (104) 96 11/15/18 16:00 99.7 91 20 126/92 (103) 94 11/15/18 12:00 97.7 81 20 128/84 (99) 91 11/15/18 10:34 65 146/71 Intake and Output 11/15/18 11/16/18 18:59 06:59 Intake Total 480 ml 600 ml Output Total 950 ml Balance -470 ml 600 ml Intake Oral 480 ml IV Total 600 ml Output Urine Total 950 ml # Voids 3 1 General Appearance: no acute distress HEENT: normocephalic Respiratory/Chest: chest wall non-tender, lungs clear Cardiovascular: normal peripheral pulses, normal rate Abdomen: normal bowel sounds, soft, non tender Laboratory Tests 11/16/18 05:50: White Blood Count 6.9, Red Blood Count 2.61L, Hemoglobin 8.3L, Hematocrit 25.1L , Mean Corpuscular Volume 96, Mean Corpuscular Hemoglobin 31.9H, Mean Corpuscular Hemoglobin Concent 33.3, Red Cell Distribution Width 17.6H, Platelet Count 78L, Mean Platelet Volume 9.9, Neutrophils (%) (Auto) , Lymphocytes (%) (Auto) , Monocytes (%) (Auto) , Eosinophils (%) (Auto) , Basophils (%) (Auto) , Differential Total Cells Counted 100, Neutrophils % ( Manual) 65, Lymphocytes % (Manual) 24, Monocytes % (Manual) 4, Eosinophils % ( Manual) 2, Basophils % (Manual) 0, Band Neutrophils 5, Platelet Estimate DecreasedL, Platelet Morphology Normal, Anisocytosis 1+, Sodium Level 142, Potassium Level 4.2, Chloride Level 107, Carbon Dioxide Level 29, Anion Gap 7, Blood Urea Nitrogen 19H, Creatinine 1.5H, Estimat Glomerular Filtration Rate 46.7, Glucose Level 117H, Calcium Level 8.5 Current Medications Medications (Trade) Dose Ordered Sig/Jet Route PRN Reason Start Time Stop Time Status Last Admin Dose Admin Acetaminophen (Tylenol) 650 mg Q4H PRN ORAL Mild Pain (Pain Scale 1-3) 11/12/18 12:30 12/09/18 12:29 Allopurinol (Allopurinol) 300 mg DAILY ORAL 11/13/18 09:00 12/10/18 08:59 11/16/18 08:13 Dextrose (Dextrose 50%) 25 ml Q30M PRN IV Hypoglycemia 11/12/18 12:30 12/09/18 12:29 Dextrose (Dextrose 50%) 50 ml Q30M PRN IV Hypoglycemia 11/12/18 12:30 12/09/18 12:29 Famotidine (Pepcid) 40 mg DAILY ORAL 11/13/18 09:00 12/10/18 08:59 11/16/18 08:13 Insulin Aspart (NovoLOG) BEFORE MEALS AND HS SUBQ 11/12/18 16:30 12/09/18 20:59 11/16/18 06:36 Insulin Detemir (Levemir) 23 units Q24H SUBQ 11/12/18 21:00 12/09/18 20:59 11/14/18 22:59 Labetalol HCl (Normodyne) 200 mg Q12HR ORAL 11/12/18 21:00 12/11/18 20:59 11/16/18 08:13 Levothyroxine Sodium (Synthroid) 25 mcg DAILY@0630 ORAL 11/13/18 06:30 12/10/18 06:29 11/16/18 06:34 Lorazepam (Ativan) 1 mg Q6H PRN ORAL For Agitation 11/12/18 18:00 11/19/18 17:59 11/13/18 08:30 Paroxetine HCl (Paxil) 40 mg DAILY ORAL 11/13/18 09:00 12/10/18 08:59 11/16/18 08:13 Piperacillin Sod/ Tazobactam Sod 3.375 gm/Dextrose 100 ml @ 25 mls/hr EVERY 8 HOURS IVPB 11/14/18 15:00 11/19/18 14:59 11/16/18 06:34 Sodium Chloride 1,000 ml @ 100 mls/hr Q10H IV 11/12/18 12:30 12/12/18 12:29 11/16/18 06:35 Tamsulosin HCl (Flomax) 0.4 mg BEDTIME ORAL 11/12/18 21:00 12/09/18 20:59 11/15/18 20:58 Tbo-Filgrastim (Granix) 480 mcg BIOTEC SQ 11/13/18 12:00 12/13/18 11:59 11/14/18 21:54 Xu Marinelli MD Nov 16, 2018 09:45
--- NOTE | 2018-11-16 11:35 | NUR ---
RADIOLOGY DEPT CHEST X-RAY DONE.-P.DYE
[2018-11-16 12:00] VITALS: BP 140/68
--- NOTE | 2018-11-16 12:46 | Diagnostic Imaging Report ---
Indication: Shortness of breath Technique: One view of the chest Comparison: 11/13/2018 Findings: Heart is enlarged. Bilateral interstitial congestion and mild airspace disease persists. The pleural spaces remain clear. Findings are unchanged Impression: Unchanged, over 3 days, findings as above.
--- NOTE | 2018-11-16 15:12 | Infectious Diseases Prog Note ---
Assessment/Plan Assessment/Plan ASSESSMENT AND PLAN: 1. sepsis, pneumonia, fevers, leukopenia, neutropenia, tho, ? influenza infection/viral syndrome - - continue zosyn - day # 6 abx - can discharge on po augmentin x 5 days - mycoplasma serology negative, legionella negative, sc - yeast only, no mrsa cultured - monitor labs, cr, wbc and chest x-ray - last chest x-ray worse - clinically better, fevers better - please see orders - continue per Dr. Marinelli and consultants - neupogen per hematology/oncology - communicated with Dr. Marinelli, d/w patient and family 2. The patient has pancytopenia and history of multiple myeloma. The patient is immunocompromised. Continue treatment per primary and consultants. Await hematology/oncology evaluation - consider neupogen for leukopenia, communicated with Dr. Marinelli. 3. Acute kidney, elevated creatinine, chronic renal failure - watch cr closely, nephrology f/u 4. History of diabetes. 5. Hypertension. 6. Blood sugar and blood pressure treatment for diabetes and hypertension per primary. 7. Hyperlipidemia. 8. Congestive heart failure, treatment per Cardiology. 9. Hypothyroidism. 10. Chronic pain syndrome. 11. History of gout. 12. History of alcohol abuse in the past. 13. Anemia, leukopenia, and thrombocytopenia. 14. Hypoxia. 15. CHF, treatment per cardiac consultants. 16. Social history currently is negative. 17. Family history is noncontributory. 18. MAR was noted. 19. Case was discussed with RN. 20. No known drug allergies. 21. Continue treatment per Dr. Marinelli and consultants. 22. Notes and records were noted. 23. Orders were entered. Subjective Constitutional: Denies: fever HEENT: Denies: congestion Respiratory: Denies: shortness of breath Cardiovascular: Denies: chest pain Gastrointestinal/Abdominal: Denies: nausea, vomiting, diarrhea Genitourinary: Denies: dysuria, hematuria, frequency Neurologic: Denies: headache Psychiatric: Denies: depression Skin: Denies: rash Hematologic: Denies: bleeding Musculoskeletal: Denies: pain Allergies: Coded Allergies: No Known Allergies (Unverified , 11/09/18) Objective Vital Signs Last 24 Hour Vital Signs Date Time Temp Pulse Resp B/P (MAP) Pulse Ox O2 Delivery O2 Flow Rate FiO2 11/16/18 08:34 Nasal Cannula 2.0 11/16/18 08:13 68 148/69 11/16/18 07:59 97.7 68 19 148/69 (95) 94 11/16/18 00:00 97.7 60 19 152/70 (97) 94 11/15/18 21:20 68 20 Nasal Cannula 3.0 32 11/15/18 21:20 Nasal Cannula 2.0 28 11/15/18 21:20 93 Nasal Cannula 3.0 32 11/15/18 21:00 Nasal Cannula 2.0 11/15/18 20:57 68 156/78 11/15/18 20:00 97.5 68 19 156/78 (104) 96 11/15/18 16:00 99.7 91 20 126/92 (103) 94 Height (Feet): 5 Height (Inches): 10.00 Weight (Pounds): 170 General Appearance: no acute distress HEENT: normocephalic, atraumatic, anicteric, mucous membranes moist Respiratory/Chest: crackles/rales, rhonchi - bilaterally Cardiovascular: normal rate, regular rhythm, no gallop/murmur, no JVD Abdomen: normal bowel sounds, soft, non tender, no organomegaly, non distended Genitourinary: other - no [place], no cva pain Extremities: no cyanosis Skin: no rash Neurologic/Psychiatric: hand dry cleaner II-XII grossly normal, alert, responsive Lymphatic: no neck adenopathy Musculoskeletal: no effusion Objective Chest x-ray - 11/11/18 - Comparison: 11/09/2018 Findings: Body habitus limits evaluation. Patient is rotated to the right. Allowing for differences in exposure technique, probably unchanged right upper lobe infiltrate and generalized interstitial edema. The heart is massively enlarged. Impression: Unchanged, over 2 days, findings as above. Chest x-ray - 11/13/18 - Findings: Heart is enlarged. There is bilateral interstitial and airspace edema. This appears slightly worse than on the prior exam. And pleural spaces are clear Impression: Cardiomegaly Slightly worsening interstitial edema, over 2 days Chest x-ray - 11/16/18 - Indication: Shortness of breath Technique: One view of the chest Comparison: 11/13/2018 Findings: Heart is enlarged. Bilateral interstitial congestion and mild airspace disease persists. The pleural spaces remain clear. Findings are unchanged Impression: Unchanged, over 3 days, findings as above. Microbiology Date/Time Source Procedure Growth Status 11/09/18 15:30 Blood Blood Culture - Final NO GROWTH AFTER 5 DAYS Complete 11/12/18 14:35 Sputum Induced Gram Stain - Final Complete 11/12/18 14:35 Sputum Culture - Final Cecy Albicans Usual Upper Respiratory Elida Complete Microbiology Date/Time Source Procedure Growth Status 11/09/18 15:30 Blood Blood Culture - Final NO GROWTH AFTER 5 DAYS Complete 11/12/18 14:35 Sputum Induced Gram Stain - Final Complete 11/12/18 14:35 Sputum Culture - Final Cecy Albicans Usual Upper Respiratory Elida Complete Laboratory Tests Test 11/16/18 05:50 White Blood Count 6.9 K/UL (4.8-10.8) Red Blood Count 2.61 M/UL (4.70-6.10) L Hemoglobin 8.3 G/DL (14.2-18.0) L Hematocrit 25.1 % (42.0-52.0) L Mean Corpuscular Volume 96 FL (80-99) Mean Corpuscular Hemoglobin 31.9 PG (27.0-31.0) H Mean Corpuscular Hemoglobin Concent 33.3 G/DL (32.0-36.0) Red Cell Distribution Width 17.6 % (11.6-14.8) H Platelet Count 78 K/UL (150-450) L Mean Platelet Volume 9.9 FL (6.5-10.1) Neutrophils (%) (Auto) % (45.0-75.0) Lymphocytes (%) (Auto) % (20.0-45.0) Monocytes (%) (Auto) % (1.0-10.0) Eosinophils (%) (Auto) % (0.0-3.0) Basophils (%) (Auto) % (0.0-2.0) Differential Total Cells Counted 100 Neutrophils % (Manual) 65 % (45-75) Lymphocytes % (Manual) 24 % (20-45) Monocytes % (Manual) 4 % (1-10) Eosinophils % (Manual) 2 % (0-3) Basophils % (Manual) 0 % (0-2) Band Neutrophils 5 % (0-8) Platelet Estimate Decreased L Platelet Morphology Normal Anisocytosis 1+ Sodium Level 142 MMOL/L (136-145) Potassium Level 4.2 MMOL/L (3.5-5.1) Chloride Level 107 MMOL/L (98-107) Carbon Dioxide Level 29 MMOL/L (21-32) Anion Gap 7 mmol/L (5-15) Blood Urea Nitrogen 19 mg/dL (7-18) H Creatinine 1.5 MG/DL (0.55-1.30) H Estimat Glomerular Filtration Rate 46.7 mL/min (>60) Glucose Level 117 MG/DL (74-106) H Calcium Level 8.5 MG/DL (8.5-10.1) Current Medications Medications (Trade) Dose Ordered Sig/Jet Route PRN Reason Start Time Stop Time Status Last Admin Dose Admin Acetaminophen (Tylenol) 650 mg Q4H PRN ORAL Mild Pain (Pain Scale 1-3) 11/12/18 12:30 12/09/18 12:29 Allopurinol (Allopurinol) 300 mg DAILY ORAL 11/13/18 09:00 12/10/18 08:59 11/16/18 08:13 Dextrose (Dextrose 50%) 25 ml Q30M PRN IV Hypoglycemia 11/12/18 12:30 12/09/18 12:29 Dextrose (Dextrose 50%) 50 ml Q30M PRN IV Hypoglycemia 11/12/18 12:30 12/09/18 12:29 Famotidine (Pepcid) 40 mg DAILY ORAL 11/13/18 09:00 12/10/18 08:59 11/16/18 08:13 Insulin Aspart (NovoLOG) BEFORE MEALS AND HS SUBQ 11/12/18 16:30 12/09/18 20:59 11/16/18 11:56 Insulin Detemir (Levemir) 23 units Q24H SUBQ 11/12/18 21:00 12/09/18 20:59 11/14/18 22:59 Labetalol HCl (Normodyne) 200 mg Q12HR ORAL 11/12/18 21:00 12/11/18 20:59 11/16/18 08:13 Levothyroxine Sodium (Synthroid) 25 mcg DAILY@0630 ORAL 11/13/18 06:30 12/10/18 06:29 11/16/18 06:34 Lorazepam (Ativan) 1 mg Q6H PRN ORAL For Agitation 11/12/18 18:00 11/19/18 17:59 11/13/18 08:30 Paroxetine HCl (Paxil) 40 mg DAILY ORAL 11/13/18 09:00 12/10/18 08:59 11/16/18 08:13 Piperacillin Sod/ Tazobactam Sod 3.375 gm/Dextrose 100 ml @ 25 mls/hr EVERY 8 HOURS IVPB 11/14/18 15:00 11/19/18 14:59 11/16/18 14:10 Sodium Chloride 1,000 ml @ 100 mls/hr Q10H IV 11/12/18 12:30 12/12/18 12:29 11/16/18 06:35 Tamsulosin HCl (Flomax) 0.4 mg BEDTIME ORAL 11/12/18 21:00 12/09/18 20:59 11/15/18 20:58 Tbo-Filgrastim (Granix) 480 mcg BIOTEC SQ 11/13/18 12:00 12/13/18 11:59 11/14/18 21:54 Ino Duncan MD Nov 16, 2018 15:12
[2018-11-16 15:33] VITALS: BP 141/70
--- NOTE | 2018-11-16 18:12 | NUR ---
NURSE NOTES: pt wants to go home per family id md newton can dc on augmentin x 5days, paged dr Marinelli if ok to go home, awaiting response Addendum: 11/16/18 at 1834 by BERNARDO RAMESH RN dr Marinelli will call in [facility] for [facility]in abx. pt can go home today,
--- NOTE | 2018-11-16 18:50 | NUR ---
CASE MANAGEMENT: REVIEW SI: PNA . HYPOXIA T 98.0 HR 72 RR 19 BP 152/70 SAT 94% NC/2L H/H 8.3/25.1 BUN 19 CR 1.5 IS: ZOSYN IV Q8HR NS IVF @100ML/HR MED/SURG STATUS DCP: PATIENT IS FROM HOME
--- NOTE | 2018-11-16 18:59 | NUR ---
NURSE NOTES: pt picked up by francois Pimentel left in stable condition, iv removed no bleeding, arm band removed. all belongings with the pt.
--- NOTE | 2018-11-17 15:03 | Discharge Summary ---
Discharge Summary Discharge Summary _ DATE OF ADMISSION: 11/09/2018 DATE OF DISCHARGE: 11/16/2018 DISCHARGED BY: Dr. Marinelli REASON FOR ADMISSION: 67 years old male with past medical history of multiply myeloma, status post chemotherapy, chronic cervicalgia, headaches, alcohol abuse, diabetes mellitus, gout, glaucoma, hypertension, came to the hospital with complaint of fever , chills , and muscle aches. Upon evaluation in emergency department patient was febrile, tachycardic, and required 100% nonrebreathing mask . Laboratory workup revealed leukopenia with WBC 2.2 ,hemoglobin 8.7, hematocrit 26.1, platelet count 50. Electrolytes stable. Renal parameters revealed BUN 45 , creatinine 2.2. Glucose 173. Lactic acid 0.9. Stable LFT. Troponin-0.045. Pro BNP 1422. EKG revealed normal sinus rhythm no acute ischemic changes. Albumin 2.9. Urinalysis revealed no evidence of UTI. Chest x-ray revealed dense right and mid lung capacity. Patient was admitted for further management CONSULTANTS: grinder machine knife setter ID specialist materials research engineer Dr.De Vickers media promoter/oncologist Dr. Brown pain specialist Dr. Duran [facility] COURSE: Patient admitted and started on broad-spectrum antibiotic. Home medication were continued. ID, cardiology, oncology and nephrology consults were requested. Pain management was addressed and provided as per pain specialist recommendations. Blood cultures were negative. Rapid influenza screen test was negative. Sputum culture revealed Cecy. No MRSA in sputum. Mycoplasma serology was negative. Urine Legionella antigen was negative. Antibiotics were provided as per infectious disease specialist recommendation. Patient was on IV antibiotic while in the hospital and switched to oral Augmentin upon discharge to complete the course for additional 5 days. Patient was followed-up with chest x-ray. Supplemental oxygen provided as needed to keep pulse oximetry above 92%. Pulmonary toilet provided [id number] and as needed. Patient eventually was able to be weaned to oxygen 2 L via nasal cannula. DVT and GI prophylaxis provided. Patient noted to have pancytopenia Patient status post extensive course of chemotherapy and bone marrow transplant. Currently on Revlimid. In view of patient renal insufficiency and course of significant pancytopenia and neutropenic fever, Revlimid was hold. Patient received Neupogen. White blood count improved. Prior to discharge WBC 6.9. Hemoglobin and hematocrit were closely monitored with goal to keep hemoglobin above 7. Patient undergone 2 units of packed red blood cells blood transfusion for hemoglobin 6.7 and hematocrit 20.8. Prior to discharge hemoglobin 8.3, hematocrit 25.1, platelet count trending up - 78. Patient was on IV hydration. Renal parameters and electrolytes were closely monitored. Nephrotoxic avoided as possible. Prior to discharge BUN from 45 down to 19 and creatinine from 2.2 down to 1.5. Per materials research engineer , patient had chronic kidney disease stage 3B. Patient was noted to be hypotensive. Initially blood pressure medications were held and then beta raza was slowly started with holding parameters. Home medication were continued, including Flomax ,levothyroxine ,Paxil , allopurinol. Blood sugar was managed with long-acting insulin and sliding scale of insulin was provided as needed. Patient clinically stabilized, fever resolved. Patient was ready for discharge home. Outpatient follow-up with primary care provider and oncologist. FINAL DIAGNOSES: Sepsis Pneumonia Possible viral syndrome Neutropenic fever Leukopenia /neutropenia, status post Neupogen Multiply myeloma , status post extensive chemotherapy and bone marrow transplant Pancytopenia -improving Anemia , status post blood transfusion Acute kidney injury on chronic kidney disease , stage 3B Chronic pain Hyperlipidemia Diabetes mellitus Hypertension Gout History of alcohol abuse Opiate dependency DISCHARGE MEDICATIONS: See Medication Reconciliation list. DISCHARGE INSTRUCTIONS: Patient was discharged home with home health services. Follow up with primary care provider in one week. Follow up with outpatient oncologist. I have been assigned to dictate discharge summary for this account. I was not involved in the patient's management. Claire Vieira NP Nov 17, 2018 15:03
== END 2018-11-16 18:59 | disposition home health service (06) | DRG 871 ==
LOC: EDBD 15:10 → EMR 15:40 → 2E 16:13 → EDBEDREQ 16:45 → 4E 11-12 12:14
PROC: 30233N1 Transfusion of Nonautologous Red Blood Cells into Peripheral Vein, Percutaneous Approach (ICD-10-PCS; principal; 2018-11-14)
DX: A41.9 Sepsis, unspecified organism (principal); I50.33 Acute on chronic diastolic (congestive) heart failure; J11.00 Influenza due to unidentified influenza virus with unspecified type of pneumonia; C90.00 Multiple myeloma not having achieved remission; D61.818 Other pancytopenia; I13.0 Hypertensive heart and chronic kidney disease with heart failure and stage 1 through stage 4 chronic kidney disease, or unspecified chronic kidney disease; N17.9 Acute kidney failure, unspecified; F11.20 Opioid dependence, uncomplicated; I42.9 Cardiomyopathy, unspecified; N18.3 Chronic kidney disease, stage 3 (moderate); G89.29 Other chronic pain; M54.2 Cervicalgia; E78.5 Hyperlipidemia, unspecified; F10.21 Alcohol dependence, in remission; M10.9 Gout, unspecified; E11.22 Type 2 diabetes mellitus with diabetic chronic kidney disease; E03.9 Hypothyroidism, unspecified; R09.02 Hypoxemia; Z94.89 Other transplanted organ and tissue status; Z79.4 Long term (current) use of insulin; E78.1 Pure hyperglyceridemia
CPT/HCPCS: 36415; 71045; 80048; 80053; 80202; 81003; 82164; 82550; 82962; 83605; 83880; 84484; 85007; 85025; 85610; 85730; 86710; 86738; 86850; 86900; 86901; 86920; 87040; 87070; 87205; 93005; 94640; 94664; 94760; 96361; 96365; 96367; 96368; 99285; J1815; S5561